=== PATIENT | female | born 1980 | race Caucasian/White ===

== ENCOUNTER → 2017-09-09 20:38 | Outpatient (CLI) | payer SELFPAY ==
[2017-09-15 11:27] LABS: HPV APTIMA, High Risk Negative (Negative)
== END ==
PROVIDERS: Visit Provider Nurse Practitioner Women's Health
DX: Z12.4 Encounter for screening for malignant neoplasm of cervix (principal)
CPT/HCPCS: 88175; G0145

== ENCOUNTER → 2018-11-03 08:32 | Outpatient (CLI) | payer BC, SELFPAY ==
[2018-10-26 13:55] VITALS: BMI 32.7
[2018-11-03 10:28] LABS: ALB/GLOB Ratio 1.1 RATIO (0.9-2.4); AST(SGOT) 14 U/L (15-37); Alanine Aminotransfer ALT/SGPT 20 U/L (13-56); Albumin, Serum 3.9 g/dL (3.2-5.0); Alkaline Phosphatase 57 U/L (45-117); Anion Gap 8 (5-15); BUN 13 mg/dL (7-18); BUN/Creat Ratio 17.5 RATIO (10-20); Calcium,Total 8.5 mg/dL (8.5-10.1); Chloride 108 mmol/L (98-107); Cholesterol 179 mg/dL (200); Creatinine, Serum 0.74 mg/dL (0.55-1.02); EST Glomerular Filtration Rate 93 mL/min (>60); Est Glom Filt Rate - Afr Amer 112 mL/min (>60); Globulin 3.6 g/dL (2.2-4.2); Glucose 94 mg/dL (74-106); High Density Lipoprotein 42 mg/dL; Potassium 3.8 mmol/L (3.5-5.1); Protein, Total 7.5 g/dL (6.4-8.2); Sodium Level 141 mmol/L (136-145); Thyroid Stim Hormone (TSH) 3.24 uIU/mL (0.358-3.74); Triglycerides 88 mg/dL; Very Low Density Lipoprotein 18 mg/dL (5-40)
== END ==
PROVIDERS: Family Provider Family Medicine; Referring Provider Nurse Practitioner Women's Health; Visit Provider Nurse Practitioner Women's Health
DX: Z00.00 Encounter for general adult medical examination without abnormal findings (principal); Z13.220 Encounter for screening for lipoid disorders; R79.89 Other specified abnormal findings of blood chemistry
CPT/HCPCS: 36415; 80053; 80061; 84443

== ENCOUNTER → 2020-01-01 15:39 | Outpatient (CLI) | payer BC, SELFPAY ==
[2019-11-21 14:08] VITALS: BMI 32.7
--- NOTE | 2020-01-01 15:49 | BI_ITS ---
MAMMOGRAPHY - BILATERAL SCREENING REASON FOR EXAM: Female, 39 years old. Routine annual screening examination. PERTINENT HISTORY: Aunts with breast cancer. TECHNIQUE: Digital bilateral breast madison (3D mammographic acquisition) in the CC and MLO projections. 2-D mediolateral oblique (MLO) and craniocaudad (CC) views of both breasts were obtained. CAD: Full Field Digital Mammography with Computer Added Detection was performed. COMPARISON: None. Baseline examination. FINDINGS: Breast Composition: The breasts are heterogeneously dense, which may obscure small masses. There are no dominant masses or suspicious calcifications. No other significant abnormalities are identified. BI/SCREEN MAMM (CAD) W/MADISON BILAT IMPRESSION: Negative screening mammogram. Yearly followup mammogram recommended. (A) ASSESSMENT CATEGORY: BIRADS Category 1: Negative. A letter regarding these results will be sent to the patient by the facility within 30 days. Approximately 10% of breast cancers are not detected by mammography. A normal mammogram should not delay biopsy of a clinically suspicious abnormality. [id number] Electronically Signed: Ricardo Huertas, at 9:04 EDT , Service support ,
== END ==
PROVIDERS: Referring Provider Nurse Practitioner Women's Health; Visit Provider Nurse Practitioner Women's Health
DX: Z12.31 Encounter for screening mammogram for malignant neoplasm of breast (principal)
CPT/HCPCS: 77063; 77067

== ENCOUNTER → 2020-06-18 11:50 | Outpatient (CLI) | payer BC, SELFPAY ==
[2020-06-10 11:18] VITALS: BMI 33.8
[2020-06-18 15:26] LABS: Absolute Lymphocyte Count 2.04 X10^3/uL (0.83-4.51); Absolute Neutrophil Count 2.6 X10^3/uL (2.0-7.7); Basophil# 0.05 X10^3/uL; Eosinophil# 0.17 X10^3/uL; Eosinophils% 3.2 % (0-5); Hematocrit 42.1 % (37-47); Lymphocyte # 2.04 X10^3/ul (4.0); Lymphocyte % 38.9 % (19-41); Mean Corp Hgb Conc 33.3 g/dL (32-36); Mean Corpuscular Volume 93.1 fL (81-99); Mean Platelet Vol. 11.5 fl (6.2-12.0); Monocyte# 0.38 X10^3/uL; Monocyte% 7.2 % (0-10); NRBC Flagged by Analyzer 0 % (0-5); Neutrophil % 49.5 % (47-70); Platelet Count 229 K/mm3 (150-450); RBC Distribution Width CV 11.8 % (11.6-14.6); RBC Distribution Width SD 39.6 fl (35.1-43.9); Red Blood Count 4.52 M/mm3 (4.2-5.4); White Blood Count 5.3 K/mm3 (4.4-11.0)
== END ==
PROVIDERS: PCP Family Medicine; Referring Provider Obstetrics & Gynecology; Visit Provider Obstetrics & Gynecology
DX: Z13.29 Encounter for screening for other suspected endocrine disorder (principal); N92.0 Excessive and frequent menstruation with regular cycle
CPT/HCPCS: 36415; 84443; 85025

== ENCOUNTER → 2020-06-19 07:30 | Outpatient (CLI) | payer BC, SELFPAY ==
[2020-06-10 11:18] VITALS: BMI 33.8
--- NOTE | 2020-06-19 07:32 | US_ITS ---
STUDY: ULTRASOUND OF THE FEMALE PELVIS - COMPLETE REASON FOR EXAM: Female, 39 years old. Menorrhagia -- LMP 06/06/20 LMP: 06/06/2020 TECHNIQUE: Transabdominal and Transvaginal TECHNICAL QUALITY: Adequate. COMPARISON: None. FINDINGS: The uterus is anteverted and is in a midline position. The uterus measures 8 cm x 6.4 cm x 4.9 cm. Normal uterine cervix. The endometrium measures 11 mm in thickness, and is fluid distended. There is no demonstrated endometrial mass. There is no demonstrated myometrial mass. I.U.D. - The patient does not have an I.U.D. The right ovary is visualized. The right ovary measures 2.6 cm x 2.2 cm x 2 cm. There is no right ovarian cyst or ovarian mass. There is no visualized right adnexal mass or complex lesion. There is normal arterial and normal venous vascularity. The left ovary is visualized. The left ovary measures 3.3 cm x 3.1 cm x 2.4 cm. There is a 1.4 cm x 1.3 cm x 1.5 cm follicle in the left ovary. There is no visualized left adnexal mass or complex lesion. There is normal arterial and normal venous vascularity. There is no fluid in the cul-de-sac. The pre void volume of the bladder was 41 ml. Polycystic ovary disease: No. US/Transvaginal Non- IMPRESSION: Dominant follicle in the left ovary. Electronically Signed: Ricardo Huertas, at 12:49 EST , Service support ,
--- NOTE | 2020-06-19 07:32 | US_ITS ---
STUDY: ULTRASOUND OF THE FEMALE PELVIS - COMPLETE REASON FOR EXAM: Female, 39 years old. Menorrhagia -- LMP 06/06/20 LMP: 06/06/2020 TECHNIQUE: Transabdominal and Transvaginal TECHNICAL QUALITY: Adequate. COMPARISON: None. FINDINGS: The uterus is anteverted and is in a midline position. The uterus measures 8 cm x 6.4 cm x 4.9 cm. Normal uterine cervix. The endometrium measures 11 mm in thickness, and is fluid distended. There is no demonstrated endometrial mass. There is no demonstrated myometrial mass. I.U.D. - The patient does not have an I.U.D. The right ovary is visualized. The right ovary measures 2.6 cm x 2.2 cm x 2 cm. There is no right ovarian cyst or ovarian mass. There is no visualized right adnexal mass or complex lesion. There is normal arterial and normal venous vascularity. The left ovary is visualized. The left ovary measures 3.3 cm x 3.1 cm x 2.4 cm. There is a 1.4 cm x 1.3 cm x 1.5 cm follicle in the left ovary. There is no visualized left adnexal mass or complex lesion. There is normal arterial and normal venous vascularity. There is no fluid in the cul-de-sac. The pre void volume of the bladder was 41 ml. Polycystic ovary disease: No. US/Pelvic (Non ) IMPRESSION: Dominant follicle in the left ovary. Electronically Signed: Ricardo Huertas, at 12:49 EST , Service support ,
== END ==
PROVIDERS: PCP Family Medicine; Referring Provider Obstetrics & Gynecology; Visit Provider Obstetrics & Gynecology
DX: N92.0 Excessive and frequent menstruation with regular cycle (principal)
CPT/HCPCS: 76830; 76856

== ENCOUNTER → 2020-06-19 17:29 | Outpatient (CLI) | payer BC, SELFPAY ==
[2020-06-10 11:18] VITALS: BMI 33.8
== END ==
PROVIDERS: PCP Family Medicine; Referring Provider Family Medicine; Visit Provider Family Medicine
DX: Z20.828 Contact with and (suspected) exposure to other viral communicable diseases (principal)
CPT/HCPCS: 87635; C9803; U0003

== ENCOUNTER → 2020-11-27 | Outpatient (CLI) | payer BC, SELFPAY ==
[2020-11-27 13:49] VITALS: BMI 32.5
[2020-12-02 07:06] LABS: Chlamydia By Nucleic Acid AMP Negative (Negative)
[2020-12-02 07:16] LABS: Gonococcus By Nucleic Acid AMP Negative (Negative)
== END | disposition home or self-care (01) ==
LOC: LABSPEC 16:57
PROVIDERS: PCP Family Medicine; Visit Provider Obstetrics & Gynecology
DX: Z20.2 Contact with and (suspected) exposure to infections with a predominantly sexual mode of transmission (principal)
CPT/HCPCS: 87491; 87591

== ENCOUNTER → 2020-11-28 12:42 | Outpatient (CLI) | payer BC, SELFPAY ==
[2020-11-27 13:49] VITALS: BMI 32.5
[2020-11-28 16:26] LABS: HIV - WCH Non-Reactive (Nonreactive); Hepatitis B Surface Antigen Non-Reactive (Nonreactive); Hepatitis C Antibody Non-Reactive (Nonreactive); Syphilis Antibodies Non-reactive
== END ==
PROVIDERS: PCP Family Medicine; Visit Provider Obstetrics & Gynecology
DX: Z20.2 Contact with and (suspected) exposure to infections with a predominantly sexual mode of transmission (principal)
CPT/HCPCS: 36415; 86703; 86780; 86803; 87340

== ENCOUNTER → 2020-12-27 11:02 | Outpatient (CLI) | payer SELFPAY ==
[2020-11-27 13:49] VITALS: BMI 32.5
--- NOTE | 2020-12-27 11:13 | VDLE_ITS ---
Reason For Study: Pain Rt leg RIGHT GSV is normal. CFV is compressible, spontaneous, phasic, competent and demonstrates normal augmentation. FV is compressible, spontaneous, phasic, competent and demonstrates normal augmentation. POP V is compressible, spontaneous, phasic, competent and demonstrates normal augmentation. T/P Trunk is compressible. PTV is compressible. RT PerV is compressible. Procedure This is a venous duplex using B-mode, color flow and spectral Doppler. Exam performed in department. A preliminary report was called and/or faxed to [facility]. VL/Venous Duplex US, Unilateral Interpretation Summary Deep veins of the right lower extremity are patent and compressible segmentally . There is no evidence of right lower extremity deep vein thrombosis. Valvular competence robert ears intact within the proximal deep venous system on the right . The right great saphenous vein a ppears patent and compressible segmentally. Ordering Physician: Andrew Graff Referring Physician: Andrew Graff Performed By: Lilli Campbell RVT and Student
== END ==
PROVIDERS: PCP Family Medicine; Referring Provider Family Medicine; Visit Provider Family Medicine
DX: M79.604 Pain in right leg (principal)
CPT/HCPCS: 93971

== ENCOUNTER 2021-01-14 12:30 | Outpatient (RCR) | payer SELFPAY ==
[2020-11-27 13:49] VITALS: BMI 32.5
--- NOTE | 2021-01-08 15:01 | HP.PTEVAL_ITS ---
Patient's Visit Information ELKIN WILKERSON is a 40 year old F referred to Physical Therapy by Dr. Andrew Graff MD with a diagnosis of PAIN IN RIGHT LEG. Date of Evaluation: 01/08/21 Physical Therapist: Marimar Hummel PT, Cert MDT - Visit Plan Frequency: 2-3x /Week Duration: 4-6 Weeks Plan: AQUATIC THERAPY FOR PAIN RELIEF, POSTURE CORRECTION/STRENGTHENING, INSTRUCTION IN APPROPRIATE BODY MECHANICS AND ACTIVITY MODIFICATIONS. DLS STARTING WITH A NEUTRAL SPINE PROGRESSING ROM TOLERATED. KARI LE ROM, STRETCHING AND STRENGTHENING. HEP INSTRUCTION. 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 Disability: NO. Present symptoms: RIGHT LOW BACK PAIN. RIGHT BUTTOCK, RIGHT THIGH, RIGHT LEG AND INTO THE HEEL. PATIENT DENIES RIGHT LE NUMBNESS AND TINGLING. RIGHT HIP CATCHES. Present since: December. Pain Scale: WORST 8/10, LEAST 3/10. Currently: 3/10. Commenced as a result of: STARTED THE DAY THAT RETURNED FROM A 12 HOUR CAR RIDE HOME FROM [place]. PATIENT WAS PASSENGER. SOME PAIN DURING RIDE HOME BUT NOT BEFORE. Symptoms at onset: RIGHT HIP. Worse: EVERYTHING, MASSAGE, STRETCHING, GETTING DRESSED, BENDING, TWISTING, WORK, HOUSEWORK, LIFTING. Better: IBUPROFEN. Disturbed sleep: YES. Previous history/Previous treatment: PATIENT REPORTS GETTING A MASSAGE ABOUT 2 WEEKS BEFORE VACATION FOR MILD RIGHT LOW BACK/HIP PAIN THAT HAD BEEN GOING ON FOR ABOUT A MONTH AND WENT AWAY AFTER THE MASSAGE. FINE ON VACATION. HISTORY OF ABOUT 5 YEARS OF EPISODIC LOW BACK PAIN AND RIGHT HIP PAIN BUT NEVER THIS SEVERE. NO PRIOR HX OF PAIN DOWN EITHER LEG. TREATED WITH MASSAGE ONLY. NO BACK SURGERY. NO HIP SURGERY. NO BACK OR HIP INJECTIONS. NO BACK OR HIP PHYSICAL THERAPY. NO CHIROPRACTOR. PATIENT REPORTS SHE THINKS LEANING TO THE RIGHT CLEANING TEETH MIGHT HAVE SOMETHING TO DO WITH THIS PAIN DEVELOPING. Treatment this episode: PT CONSULT. Coughing/sneezing/straining: POSITIVE. Gait: ITS A STRUGGLE. PATIENT REPORTS FEELING PULLING IN RIGHT HIP AND TIGHTNESS BEHIND RIGHT KNEE NOT ALLOW IT TO STRAIGHTEN OUT WHEN SHE WALKS. NO FALLS. TIME AND DISTANCE LIMITED DUE TO PAIN. Difficulty initiating urinatin: NO. Accidents: NO. Unexplained weight loss: NO. Imaging: PATIENT DENIES HAVING LOW BACK OR RIGHT LE X-RAYS. PMH: UNREMARKABLE. Recent major surgery: NO. PLOF - UNLIMITED. OTHER: RIGHT LE US - NEGATIVE. - Objective Sitting/Standing Posture: POOR. SITTING ON LEFT HIP. Lordosis: NORMAL. Lateral shift: NO. Relevant shift: N/A. Active Correction of posture: WORSE. Other Observations: THIS PATIENT AMBULATES INTO PT WITH A SLOW ANTALGIC GAIT PATTERN LIMPING ON THE R LE AND EXTERNALLY ROTATING RIGHT LE. Motor deficit: KARI LE STRENGTH 5/5 WITH MMT'ING EXCEPT HIPS: R 4-/5, LEFT 4/5. Sensory deficit: DECREASED RIGHT LATERAL THIGH AND LEG LIGHT TOUCH SENSATION COMPARED TO LEFT. ROM deficit: TIGHT KARI HIP FLEXORS, EXTERNAL ROTATORS, HS'S AND GASTROC SOLEUS COMPLEX'S. Reflexes: 2/3 KARI LE'S. Dural Signs: POSITIVE R LE. NEGATIVE LLE. Lumbar mvmt loss: flex - AYALA. ext - AYALA. R SG - MOD. L SG - MOD. PATIENT C/O INCREASED RIGHT BUTTOCK PAIN WITH LUMBAR ROM TESTING ALL PLANES. Core strength: POOR. Palpation: TENDERNESS WITH PALPATION OF THE RIGHT BUTTOCK AREA. TREATMENT: NEUROMUSCULAR REEDUCATION - RETRAINING OF MVMT AND POSTURE FOR SITTING, LYING AND STANDING ACTIVITIES. - Goals Goal 1:: DECREASE C/O RIGHT LE PAIN Goal Time Frame: 4-6 Weeks Goal 2:: IMRPOVE PERSONAL CARE, LIFTING, WALKING, SITTING, STANDING, SLEEP, SOCIAL LIFE, TRAVEL AND WORK/HOMEMAKING. Goal Time Frame: 4-6 Weeks Goal 3:: INSTRUCT IN PROPHYLAXIS Goal Time Frame: 4-6 Weeks - Anticipated Interventions Patient/Client Instruction: Educate patient on: Condition, Plan of Care, Risk Factors For the Purpose of:: To improve self management Therapeutic Exercise to Include: Strength training, Body mechanics, Postural training, Flexibilty training, Gait and locomotor training, Neuromotor development, In an aquatic setting, Dynamic Lumbar Stabilization For the Purpose of:: To decrease pain, To improve muscle performance and motor function, To increase tolerance to activity/condition/position, To improve ability of physical actions for home/community/work/leisure, To improve gait and locomotor functions TENS: Yes IF ES: Yes Cryotherapy (ice pack, ice massage): Yes Thermo therapy (hot pack): Yes Ultrasound (thermal/non thermal): Yes For the Purpose of:: To decrease pain, To decrease swelling/inflammation, To improve nutrient delivery to tissue Thank you for the opportunity to evaluate your patient. For Medicare and Medicare HMO plans, please review the plan of care and approve it. It will need to be FAXED BACK to us at [phone] for Medicare purposes. For Medicare only, by signing this I certify the plan of care. Please let me know if there are questions or concerns regarding this plan of care. Physician Signature: Date:
--- NOTE | 2021-05-13 13:18 | HP.PT.NRP ---
ELKIN WILKERSON was seen in my office for initial evaluation on 01/08/21. The following Plan of Care was established for this patient: Initial Frequency: 2-3x /Week Initial Duration: 4-6 Weeks Patient/Client Instruction: Educate patient on: Condition, Plan of Care, Risk Factors For the Purpose of:: To improve self management Therapeutic Exercise to Include: Strength training, Body mechanics, Postural training, Flexibilty training, Gait and locomotor training, Neuromotor development, In an aquatic setting, Dynamic Lumbar Stabilization For the Purpose of:: To decrease pain, To improve muscle performance and motor function, To increase tolerance to activity/condition/position, To improve ability of physical actions for home/community/work/leisure, To improve gait and locomotor functions TENS: Yes IF ES: Yes Cryotherapy (ice pack, ice massage): Yes Thermo therapy (hot pack): Yes Ultrasound (thermal/non thermal): Yes For the Purpose of:: To decrease pain, To decrease swelling/inflammation, To improve nutrient delivery to tissue This patient was last seen in our office 01/14/21. Pertinent comments regarding their Physical therapy will appear below: This patient has not returned to Physical Therapy and is appropriate to return to MD for further follow-up as needed. At this point I will be discontinuing this patient from physical therapy. I would be happy to see this patient again in the future if found appropriate by the physician. Thank you! Marimar Hummel, PT, Cert MDT Balance/Gait/Functional tests - Balance/Special Test Scores Oswestry Low Back Score: 20
== END 2021-01-14 19:00 | disposition home or self-care (01) ==
LOC: PT 12:30
PROVIDERS: PCP Family Medicine; Referring Provider Family Medicine; Visit Provider Family Medicine
DX: M79.604 Pain in right leg (principal)
CPT/HCPCS: 97014; 97035; 97112; 97162; 97530; G0283

== ENCOUNTER 2021-08-18 13:25 | Emergency (ER) | payer OTHER, SELFPAY ==
[2021-08-18 13:26] VITALS: BP 164/112; PULSE 99; RESP 18; TEMP 36.6; O2SAT 100; BMI 32.9
--- NOTE | 2021-08-18 14:42 | EKG12_ITS ---
Test Reason : JAW/NECK PAIN Blood Pressure : / mmHG Vent. Rate : 076 BPM Atrial Rate : 076 BPM P-R Int : 128 ms QRS Dur : 080 ms QT Int : 372 ms P-R-T Axes : 039 001 004 degrees QTc Int : 418 ms Normal sinus rhythm Normal ECG Confirmed by TATIANA EDUARDO, CATHY ([id number]), non linear editor SIMA FARRIS ([id number]) on 08/20/2021 11:45:15 AM Referred By: ANIYA/SHI Confirmed By:CATHY SIMPSON MD
[2021-08-18 15:06] LABS: Absolute Lymphocyte Count 2.13 X10^3/uL (0.83-4.51); Absolute Neutrophil Count 4.1 X10^3/uL (2.0-7.7); Basophil# 0.06 X10^3/uL; Basophil% 0.8 % (0-1); Eosinophil# 0.35 X10^3/uL; Eosinophils% 4.9 % (0-5); Hemoglobin 15.4 g/dL (12.0-15.0); Lymphocyte # 2.13 X10^3/ul (0.83-4.51); Mean Corpuscular Hgb 32.2 pg (27.0-32.0); Mean Corpuscular Volume 91.9 fL (81-99); Mean Platelet Vol. 9.8 fl (6.2-12.0); Monocyte# 0.41 X10^3/uL; Monocyte% 5.8 % (0-10); NRBC Flagged by Analyzer 0 % (0-5); Neutrophil # 4.12 X10^3/uL (2.7-7.7); Neutrophil % 58.2 % (47-70); Platelet Count 298 K/mm3 (150-450); RBC Distribution Width CV 11.9 % (11.6-14.6); RBC Distribution Width SD 40.6 fl (35.1-43.9); Red Blood Count 4.79 M/mm3 (4.2-5.4); White Blood Count 7.1 K/mm3 (4.4-11.0)
[2021-08-18 15:25] VITALS: BP 115/88; PULSE 79; RESP 18; TEMP 37.1; O2SAT 98
[2021-08-18 15:37] LABS: Anion Gap 9 (5-15); BUN 12 mg/dL (7-18); BUN/Creat Ratio 17.7 RATIO (10-20); Calcium,Total 9.4 mg/dL (8.5-10.1); Chloride 106 mmol/L (98-107); Creatinine, Serum 0.68 mg/dL (0.55-1.02); EST Glomerular Filtration Rate 101 mL/min (>60); Est Glom Filt Rate - Afr Amer 122 mL/min (>60); Estimated Creatinine Clearance 86.11 ml/min; Glucose 93 mg/dL (74-106); Potassium 3.4 mmol/L (3.5-5.1); Sodium Level 138 mmol/L (136-145); Troponin-I HS 4 pg/mL (3.0-54.0)
--- NOTE | 2021-08-18 15:50 | RAD_ITS ---
STUDY: X-RAY CHEST REASON FOR EXAM: Female, 40 years old. Chest pain TECHNIQUE: Single AP portable view of the chest. COMPARISON: None. FINDINGS: The lungs are clear and expanded. There is no demonstrated pleural abnormality. Normal size heart. Normal mediastinum and viktoriya. Normal visualized pulmonary arteries. Normal visualized aortic arch and descending thoracic aorta. Normal visualized thoracic spine. Normal visualized ribs, clavicles, and shoulders. There is no demonstrated abnormality of the visualized soft tissue structures of the upper abdomen. RAD/Chest 1 View (Portable) IMPRESSION: Normal x-ray examination of the chest. Electronically Signed: Ricardo Huertas MD at 15:50 EST ,
--- NOTE | 2021-08-18 16:07 | EX.ED.DYSGE1 ---
HPI History of Present Illness Chief Complaint: Other, Pain/Inj Detail of Chief Complaint: Left neck pressure Informant: patient Onset/Context/Timing Onset: Today Current Severity: Gone Maximum Severity: Mild Narrative Narrative: Patient presents secondary to a odd feeling in her left neck and in her left arm. She describes it as a tingling-like sensation. She also had some pressure and slight tingling on her left face. Patient was at work when she noted the symptoms this morning and checked her blood pressure. It was 143/103 which is high for her. She does note that at home last week she felt her heart was racing and her pulse ox read her heart rate at 140. This improved after she took a half dose of Xanax. On arrival to the emergency room today blood pressure is 164/112. Patient is not on blood pressure medication. [facility] Medical History Acid reflux Anxiety Home Medications ranitidine HCl 150 mg tablet 150 mg PO QHS 09/09/17 [History Last Taken Unknown] Allergy/AdvReac Type Severity Reaction Status Date / Time Sulfa (Sulfonamide Allergy Mild Other Verified 08/18/21 13:28 Antibiotics) Family History Father Heart disease Surgical History Cholecystectomy planned History of tonsillectomy Social History Smoking Status: Former smoker alcohol intake: current details: social substance use type: does not use caffeine: Yes what type of physical activity do you participate in: none seatbelt use: always do you feel safe at home: Yes additional social history: - unris pendleton patient works at [employer] [facility] ED Constitutional Constitutional ED: Denies chills or fever(s) Eyes Eyes: Denies change in vision ENT ENT ED: Denies sore throat Cardiovascular Cardiovascular: Denies chest pain Respiratory/Chest Respiratory/Chest: Denies cough or dyspnea Gastrointestinal Gastrointestinal: Denies abdominal pain, nausea or vomiting Genitourinary Genitourinary ED: Denies dysuria Musculoskeletal Musculoskeletal: Reports neck pain; Denies back pain Integumentary Denies rash Neurologic Neurologic: Reports paresthesias; Denies headache(s) or weakness Allergic/Immunologic Allergic/Immunologic ED: Denies urticaria EXAM Physical Exam Const Vital Signs: 08/18/21 13:26 Temperature 97.8 F Temperature Source Temporal Pulse Rate 99 Respiratory Rate 18 Blood Pressure 164/112 H Blood Pressure Mean 129 Pulse Ox 100 Oxygen Delivery Method Room Air Positive well nourished and well developed General Appearance ED: well developed HEENT Reports moist mucous membranes Eyes PERRL and EOMs intact bilaterally Neck supple Neck Narrative: Mild tenderness in the left cervical paraspinal muscles. Chest Wall inspection of chest normal and palpation of chest normal Resp normal respiratory effort and clear to auscultation bilaterally Cardio regular rate and regular rhythm GI non-tender Palpation: soft Extremity normal to inspection Neuro oriented x3 and no sensory deficits noted Sensorium / Orientation: alert Motor Exam: strength 5/5 throughout Psych mental status grossly normal Skin no rashes or lesions noted MDM MDM MDM Narrative Medical decision making narrative: Work-up initiated in triage. EKG, chest x-ray, lab work obtained. Lab Data Attestation: I reviewed the patient's lab results. Labs: Laboratory Results - last 24 hr 08/18/21 08/18/21 14:50 14:50 WBC 7.1 RBC 4.79 Hgb 15.4 H Hct 44.0 MCV 91.9 MCH 32.2 H MCHC 35.0 RDW Std Deviation 40.6 RDW Coeff of Jhonny 11.9 Plt Count 298 MPV 9.8 Immature Gran % (Auto) 0.300 Neut % (Auto) 58.2 Lymph % (Auto) 30.0 Darke % (Auto) 5.8 Eos % (Auto) 4.9 Baso % (Auto) 0.8 Absolute Neuts (auto) 4.1 Absolute Lymphs (auto) 2.13 Nucleated RBC % 0 Sodium 138 Potassium 3.4 L Chloride 106 Carbon Dioxide 23.0 Anion Gap 9 BUN 12 Creatinine 0.68 Estim Creat Clear Calc 86.11 Est GFR (MDRD) Af Amer 122 Est GFR (MDRD) Non-Af 101 BUN/Creatinine Ratio 17.7 Glucose 93 Calcium 9.4 Troponin I High Sens 4 Radiography Chest X-Ray - ED: 1 View, Read by ED Physician, Normal, Heart, Lungs and Mediastinum EKG Initial EKG: Attestation: I personally reviewed and interpreted this EKG as follows: Interpretation: Sinus Rhythm (Sinus at 76 with no acute ischemia.) Treatment and Re-Evaluation Comments:: At the time of my exam patient resting comfortably with no abnormal sensation in her neck or arm. Blood pressure this time is 134/77. Test results reviewed with her. Potassium is slightly low at 3.4, otherwise values are normal. Troponin is normal at 4 with 6 hours of symptoms prior to labs being drawn. At this time I do not feel patient needs a repeat troponin drawn. She will check her blood pressure at work regularly and keep a journal to follow-up with her primary care physician. Return instructions provided. Discharge Plan Triage Chief Complaint: Other, Pain/Inj ED Provider: Ama Schulz Dx/Rx/DC Orders Clinical Impression: Atypical chest pain, Hypokalemia Instructions: ED Chest Pain, Noncardiac, ED Hypertension, To Be Confirmed Prescriptions: No Action ranitidine HCl [Zantac] 150 mg tablet 150 mg PO QHS RF: 0 Primary Care Provider: Andrew Graff Referrals: Andrew Graff MD [Primary Care Provider] - 1-2 Weeks Activity Restrictions/Additional Instructions: As discussed, please keep a journal of your blood pressure readings. Take this to your next appointment with your doctor to review. Please return to the ER for any worsening symptoms or concerns. Disposition Disposition: Home, Self Care
[2021-08-18 16:21] VITALS: BP 118/76; PULSE 69; RESP 16; TEMP 37.2; O2SAT 98
[2021-08-18] MEDS: Potassium Chloride Oral Tablet 20 MEQ 40 MEQ PO (16:28)
== END 2021-08-18 16:28 | disposition home or self-care (01) ==
PROVIDERS: Emergency Provider Emergency Medicine; PCP Family Medicine; Visit Provider Emergency Medicine
DX: R07.89 Other chest pain (principal); E87.6 Hypokalemia; K21.9 Gastro-esophageal reflux disease without esophagitis; F41.9 Anxiety disorder, unspecified; Z79.899 Other long term (current) drug therapy; Z87.891 Personal history of nicotine dependence
CPT/HCPCS: 71045; 80048; 84484; 85025; 93005; 99283; A4216

== ENCOUNTER 2021-09-24 08:42 | Outpatient (CLI) | payer OTHER, SELFPAY ==
[2021-09-24 10:45] LABS: Cholesterol 199 mg/dL (200); Glucose 99 mg/dL (74-106); High Density Lipoprotein 45 mg/dL; Thyroid Stim Hormone (TSH) 3.84 uIU/mL (0.358-3.74); Triglycerides 161 mg/dL; Very Low Density Lipoprotein 32 mg/dL (5-40)
[2021-09-24 11:12] LABS: Vitamin D,25 Hydroxy 26.8 ng/mL
== END 2021-09-24 23:59 | disposition home or self-care (01) ==
LOC: MTLAB 08:43
PROVIDERS: PCP Family Medicine; Referring Provider Nurse Practitioner Women's Health; Visit Provider Nurse Practitioner Women's Health
DX: Z13.1 Encounter for screening for diabetes mellitus (principal); Z13.220 Encounter for screening for lipoid disorders; Z13.29 Encounter for screening for other suspected endocrine disorder; Z13.21 Encounter for screening for nutritional disorder
CPT/HCPCS: 36415; 80061; 82306; 82947; 84443

== ENCOUNTER → 2022-02-20 | Outpatient (CLI) | payer OTHER, SELFPAY ==
--- NOTE | 2022-02-20 11:11 | US_ITS ---
STUDY: ULTRASOUND OF THE FEMALE PELVIS - COMPLETE REASON FOR EXAM: Female, 41 years old. Menorrhagia LMP: 02/09/2022. TECHNIQUE: Transabdominal and Transvaginal TECHNICAL QUALITY: Adequate. COMPARISON: Comparison is made with prior study dated 06/19/2020. FINDINGS: The uterus is anteverted and is in a midline position. The uterus measures 8.3 cm x 5.4 cm x 4.7 cm. There is a Nabothian cyst of the cervix. The endometrium measures 2.6 mm in thickness, and is heterogeneous (striated). There is no demonstrated endometrial mass. There is no demonstrated myometrial mass. I.U.D. - The patient does not have an I.U.D. The right ovary is visualized. The right ovary measures 2.5 cm x 2.9 cm x 1.5 cm. There is no right ovarian cyst or ovarian mass. There is no visualized right adnexal mass or complex lesion. There is normal arterial and normal venous vascularity. The left ovary is visualized. The left ovary measures 3.4 cm x 2.9 cm x 2.2 cm. There is a 2 cm x 1.8 cm x 1.7 cm cyst. There is no visualized left adnexal mass or complex lesion. There is normal arterial and normal venous vascularity. There is no fluid in the cul-de-sac. The pre void volume of the bladder was 607 ml. US/Transvaginal Non- IMPRESSION: 2 cm x 1.8 cm x 1.7 cm left ovarian cyst. Electronically Signed: Ricardo Huertas MD at 13:03 EDT ,
--- NOTE | 2022-02-20 11:11 | US_ITS ---
STUDY: ULTRASOUND OF THE FEMALE PELVIS - COMPLETE REASON FOR EXAM: Female, 41 years old. Menorrhagia LMP: 02/09/2022. TECHNIQUE: Transabdominal and Transvaginal TECHNICAL QUALITY: Adequate. COMPARISON: Comparison is made with prior study dated 06/19/2020. FINDINGS: The uterus is anteverted and is in a midline position. The uterus measures 8.3 cm x 5.4 cm x 4.7 cm. There is a Nabothian cyst of the cervix. The endometrium measures 2.6 mm in thickness, and is heterogeneous (striated). There is no demonstrated endometrial mass. There is no demonstrated myometrial mass. I.U.D. - The patient does not have an I.U.D. The right ovary is visualized. The right ovary measures 2.5 cm x 2.9 cm x 1.5 cm. There is no right ovarian cyst or ovarian mass. There is no visualized right adnexal mass or complex lesion. There is normal arterial and normal venous vascularity. The left ovary is visualized. The left ovary measures 3.4 cm x 2.9 cm x 2.2 cm. There is a 2 cm x 1.8 cm x 1.7 cm cyst. There is no visualized left adnexal mass or complex lesion. There is normal arterial and normal venous vascularity. There is no fluid in the cul-de-sac. The pre void volume of the bladder was 607 ml. US/Pelvic (Non ) IMPRESSION: 2 cm x 1.8 cm x 1.7 cm left ovarian cyst. Electronically Signed: Ricardo Huertas MD at 13:03 EDT ,
--- NOTE | 2022-02-20 11:57 | BI_ITS ---
MAMMOGRAPHY - BILATERAL SCREENING REASON FOR EXAM: Female, 41 years old. Routine annual screening examination. PERTINENT HISTORY: Aunt with breast cancer. TECHNIQUE: Digital bilateral breast madison (3D mammographic acquisition) in the CC and MLO projections. 2-D mediolateral oblique (MLO) and craniocaudad (CC) views of both breasts were obtained. CAD: Full Field Digital Mammography with Computer Added Detection was performed. COMPARISON: Comparison is made with prior study dated 01/01/2020. FINDINGS: Breast Composition: The breasts are heterogeneously dense, which may obscure small masses. There are no dominant masses or suspicious calcifications. No other significant abnormalities are identified. There has been no significant change since the prior study. BI/SCRN MAMM (CAD)W/MADISON BILAT IMPRESSION: Stable bilateral screening mammogram. Yearly follow-up mammogram recommended. (A) ASSESSMENT CATEGORY: BIRADS Category 1: Negative. A letter regarding these results will be sent to the patient by the facility within 30 days. Approximately 10% of breast cancers are not detected by mammography. A normal mammogram should not delay biopsy of a clinically suspicious abnormality. [id number] Electronically Signed: Ricardo Huertas MD at 12:51 EDT ,
== END | disposition home or self-care (01) ==
LOC: US 11:09
PROVIDERS: PCP Family Medicine; Visit Provider Nurse Practitioner Women's Health
DX: N92.0 Excessive and frequent menstruation with regular cycle (principal); N83.202 Unspecified ovarian cyst, left side; Z12.31 Encounter for screening mammogram for malignant neoplasm of breast; Z80.3 Family history of malignant neoplasm of breast
CPT/HCPCS: 76830; 76856; 77063; 77067

== ENCOUNTER → 2022-03-20 | Outpatient (CLI) | payer OTHER, SELFPAY ==
[2022-03-20 18:01] LABS: Anion Gap 9 (5-15); BUN 13 mg/dL (7-18); BUN/Creat Ratio 15.8 RATIO (10-20); Calcium,Total 9.2 mg/dL (8.5-10.1); Chloride 105 mmol/L (98-107); Creatinine, Serum 0.82 mg/dL (0.55-1.02); EST Glomerular Filtration Rate 81 mL/min (>60); Est Glom Filt Rate - Afr Amer 98 mL/min (>60); Glucose 85 mg/dL (74-106); Potassium 3.3 mmol/L (3.5-5.1); Sodium Level 138 mmol/L (136-145); T4 Free Direct 0.97 ng/dL (0.76-1.46); Thyroid Stim Hormone (TSH) 3.61 uIU/mL (0.358-3.74)
== END | disposition home or self-care (01) ==
LOC: MTLAB 15:32
PROVIDERS: PCP Internal Medicine; Referring Provider Internal Medicine; Visit Provider Internal Medicine
DX: E87.6 Hypokalemia (principal); R94.6 Abnormal results of thyroid function studies
CPT/HCPCS: 36415; 80048; 84439; 84443

== ENCOUNTER → 2022-04-09 | Outpatient (CLI) | payer OTHER, SELFPAY ==
--- NOTE | 2022-04-09 12:06 | US_ITS ---
INDICATION: anterior neck swelling EXAMINATION: US Thyroid (eg thyroid, parathyroid, parotid) TECHNIQUE: Del Cid scale and color doppler imaging was performed of the thyroid gland. COMPARISON: None. FINDINGS: RIGHT THYROID LOBE: Measures 4.8 x 1.9 x 2.1 cm. Heterogeneous echotexture with normal vascularity. [No thyroid nodules are present. LEFT THYROID LOBE: Measures 5.4 x 2.4 x 2.2 cm. Heterogeneous echotexture with normal vascularity. [No thyroid nodules are present. ISTHMUS: Measures 3.1 mm. No thyroid nodules are present. US/Thyroid IMPRESSION: Enlarged and heterogeneous thyroid gland without increased vascularity or discrete nodule. This is concerning for diffuse thyroid disease such as Graves disease or De Quervain thyroiditis. Electronically Signed: Vincent Garcia MD at 17:06 EDT ,
== END | disposition home or self-care (01) ==
LOC: US 12:05
PROVIDERS: PCP Internal Medicine; Referring Provider Internal Medicine; Visit Provider Internal Medicine
DX: E04.9 Nontoxic goiter, unspecified (principal)
CPT/HCPCS: 76536

== ENCOUNTER → 2022-04-13 | Outpatient (CLI) | payer OTHER, SELFPAY ==
[2022-04-26 09:18] LABS: Anti-Thyroglobulin AB 1.3 IU/mL (0.0-0.9); Thyroglobulin RIA 107 ng/mL (.); Thyroid Peroxidase AB 165 IU/mL (0-34)
== END | disposition home or self-care (01) ==
PROVIDERS: PCP Internal Medicine; Referring Provider Internal Medicine; Visit Provider Internal Medicine
DX: E87.6 Hypokalemia (principal); E04.9 Nontoxic goiter, unspecified
CPT/HCPCS: 36415; 83735; 84432; 86376; 86800

== ENCOUNTER → 2022-09-07 | Outpatient (CLI) | payer OTHER, SELFPAY ==
[2022-09-07 13:31] LABS: Ferritin 21 ng/mL (8-252); Thyroid Stim Hormone (TSH) 0.65 uIU/mL (0.358-3.74)
[2022-09-07 13:36] LABS: Vitamin B12 358 pg/mL (211-911); Vitamin D,25 Hydroxy 16.4 ng/mL
== END | disposition home or self-care (01) ==
PROVIDERS: PCP Internal Medicine; Referring Provider Internal Medicine Endocrinology, Diabetes & Metabolism; Visit Provider Internal Medicine Endocrinology, Diabetes & Metabolism
DX: E03.8 Other specified hypothyroidism (principal); E06.3 Autoimmune thyroiditis; R20.2 Paresthesia of skin; R25.2 Cramp and spasm; N92.0 Excessive and frequent menstruation with regular cycle; E55.9 Vitamin D deficiency, unspecified
CPT/HCPCS: 36415; 82306; 82607; 82728; 84439; 84443

== ENCOUNTER → 2022-09-21 | Outpatient (CLI) | payer OTHER, SELFPAY ==
[2022-09-21 12:48] LABS: ALB/GLOB Ratio 0.9 RATIO (0.9-2.4); AST(SGOT) 18 U/L (15-37); Alanine Aminotransfer ALT/SGPT 29 U/L (13-56); Albumin, Serum 3.8 g/dL (3.2-5.0); Alkaline Phosphatase 61 U/L (45-117); Anion Gap 8 (5-15); BUN 14 mg/dL (7-18); BUN/Creat Ratio 18.3 RATIO (10-20); Calcium,Total 9.8 mg/dL (8.5-10.1); Chloride 105 mmol/L (98-107); Cholesterol 170 mg/dL (200); Creatinine, Serum 0.77 mg/dL (0.55-1.02); EST Glomerular Filtration Rate 88 mL/min (>60); Est Glom Filt Rate - Afr Amer 106 mL/min (>60); Globulin 4.1 g/dL (2.2-4.2); Glucose 101 mg/dL (74-106); High Density Lipoprotein 42 mg/dL; Potassium 3.8 mmol/L (3.5-5.1); Protein, Total 7.9 g/dL (6.4-8.2); Sodium Level 138 mmol/L (136-145); Triglycerides 121 mg/dL; Very Low Density Lipoprotein 24 mg/dL (5-40)
[2022-10-04 16:07] LABS: Aldosterone, Serum 2.4 ng/dL (0.0-30.0); Renin, Plasma 0.933 ng/mL/hr (0.167-5.380)
[2022-10-06 11:07] LABS: ALDOSTERONE/RENIN RATIO 2.6 (0.0-30.0)
== END | disposition home or self-care (01) ==
LOC: BIMLAB 10:00
PROVIDERS: PCP Internal Medicine; Referring Provider Internal Medicine; Visit Provider Internal Medicine
DX: I10 Essential (primary) hypertension (principal)
CPT/HCPCS: 36415; 80053; 80061; 82088; 84244

== ENCOUNTER → 2022-11-23 | Outpatient (CLI) | payer OTHER, SELFPAY ==
[2022-11-23 10:30] LABS: T4 Free Direct 1.13 ng/dL (0.76-1.46); Thyroid Stim Hormone (TSH) 1.29 uIU/mL (0.358-3.74)
== END | disposition home or self-care (01) ==
LOC: MTLAB 08:15
PROVIDERS: Nurse Practitioner Family; PCP Internal Medicine; Referring Provider Internal Medicine Endocrinology, Diabetes & Metabolism; Visit Provider Internal Medicine Endocrinology, Diabetes & Metabolism
DX: E06.3 Autoimmune thyroiditis (principal); E03.8 Other specified hypothyroidism; I10 Essential (primary) hypertension
CPT/HCPCS: 36415; 84439; 84443

== ENCOUNTER → 2023-01-25 | Outpatient (CLI) | payer OTHER, SELFPAY ==
[2023-01-28 12:08] LABS: HPV APTIMA, High Risk Negative (Negative)
== END | disposition home or self-care (01) ==
PROVIDERS: PCP Internal Medicine; Referring Provider Nurse Practitioner Women's Health; Visit Provider Nurse Practitioner Women's Health
DX: Z12.4 Encounter for screening for malignant neoplasm of cervix (principal)
CPT/HCPCS: 87624; 88175; G0145

== ENCOUNTER → 2023-01-27 | Outpatient (CLI) | payer OTHER, SELFPAY ==
[2023-01-27 13:03] LABS: Vitamin B12 553 pg/mL (211-911); Vitamin D,25 Hydroxy 41.8 ng/mL
[2023-01-27 13:08] LABS: Anion Gap 5 (5-15); BUN 8 mg/dL (7-18); BUN/Creat Ratio 11.1 RATIO (10-20); Calcium,Total 9.3 mg/dL (8.5-10.1); Chloride 107 mmol/L (98-107); Creatinine, Serum 0.72 mg/dL (0.55-1.02); EST Glomerular Filtration Rate 94 mL/min (>60); Est Glom Filt Rate - Afr Amer 114 mL/min (>60); Glucose 95 mg/dL (74-106); Potassium 4.1 mmol/L (3.5-5.1); Sodium Level 138 mmol/L (136-145)
[2023-01-27 13:48] LABS: Ferritin 55 ng/mL (8-252); T4 Free Direct 1.21 ng/dL (0.76-1.46); Thyroid Stim Hormone (TSH) 1.48 uIU/mL (0.358-3.74)
== END | disposition home or self-care (01) ==
LOC: BIMLAB 09:56
PROVIDERS: Internal Medicine Endocrinology, Diabetes & Metabolism; PCP Internal Medicine; Referring Provider Internal Medicine; Visit Provider Internal Medicine
DX: I10 Essential (primary) hypertension (principal); E03.8 Other specified hypothyroidism; E06.3 Autoimmune thyroiditis; E61.1 Iron deficiency; E53.8 Deficiency of other specified B group vitamins; E55.9 Vitamin D deficiency, unspecified
CPT/HCPCS: 36415; 80048; 82306; 82607; 82728; 84439; 84443

== ENCOUNTER → 2023-08-31 | Outpatient (CLI) | payer OTHER, SELFPAY ==
[2023-08-31 19:03] LABS: HIV - WCH Non-Reactive (Nonreactive); Hepatitis B Surface Antibody Reactive; Hepatitis C Antibody Non-Reactive (Nonreactive)
--- OUTSIDE RECORDS SUMMARY | 2023-09-01 00:27 | XMS RPT_ITS | CCD ---
Author Name Unknown Address [address] [place] [address] Organization [facility] Allergies Allergy Classification Reported Allergen(s) Allergy Type Date of Onset Reaction(s) Facility (2 sources) Sulfonamides (Antibiotic); Translations: [SULFA (SULFONAMIDE ANTIBIOTICS)] Propensity to adverse reactions [facility]dis[facility] Problem Classification Problem Date Documented Da te Episodic/Chronic Abdominal pain (1 source) Upper abdominal pain, unspecified; Translations: [Upper abdominal pain, unspecified] Onset: 04-06-2017 Episodic Results Test Name Value Interpretation Reference Range Facil ity Encounters Encounter Date Encounter Type Care Provider Facility Start: 07-03-2017 End: 07-06-2017 Ambulatory [facility] Start: 04-06-2017 End: 04-06-2017 Emergency department patient visit [facility] Summary Purpose Family History No Family History Records FoundNo Family History Records Found Advance Directives No Advanced Directives Records FoundNo Advanced Directives Records Found Additional Source Comments INFORMATION SOURCE (unrecogn ized section and content) DATE CREATED AUTHOR AUTHOR'S ORGANIZ ATION 12/29/2017 [facility] FOR RECORDS PERTAINING TO PATIENTS WHO ARE OR HAVE BEEN ENROLLED IN A CHEMICAL DEPENDENCY/SUBSTANCEABUSE PROGRAM, SOME INFORMATION MAY BE OMITTED. This clinical summary was aggregated from multiple sources. Caution should be exercised in using it in the provision of clinical care. This summary normalizes information from multiple sources, and as a consequence, information in this document may materially change the coding, format and clinical context of patient data. In addition, data may be omitted in some cases. CLINICAL DECISIONS SHOULD BE BASED ON THE PRIMARY CLINICAL RECORDS. [facility]. provides no warranty or guarantee of the accuracy or completeness of information in this document.
== END | disposition home or self-care (01) ==
LOC: MTLAB 16:41
PROVIDERS: PCP Internal Medicine; Referring Provider Student in an Organized Health Care Education/Training Program; Visit Provider Student in an Organized Health Care Education/Training Program
DX: T14.8XXA Other injury of unspecified body region, initial encounter (principal); W46.0XXA Contact with hypodermic needle, initial encounter
CPT/HCPCS: 36415; 86703; 86706; 86803

== ENCOUNTER → 2023-12-06 | Outpatient (CLI) | payer OTHER, SELFPAY ==
[2023-12-06 17:34] LABS: Absolute Lymphocyte Count 2.11 X10^3/uL (0.83-4.51); Absolute Neutrophil Count 3.2 X10^3/uL (2.0-7.7); Basophil# 0.06 X10^3/uL; Eosinophil# 0.21 X10^3/uL; Eosinophils% 3.6 % (0-5); Hematocrit 39.8 % (37-47); Hemoglobin 13.2 g/dL (12.0-15.0); Lymphocyte # 2.11 X10^3/ul (0.83-4.51); Lymphocyte % 35.9 % (19-41); Mean Corp Hgb Conc 33.2 g/dL (32-36); Mean Corpuscular Hgb 31.1 pg (27.0-32.0); Mean Corpuscular Volume 93.6 fL (81-99); Mean Platelet Vol. 10.4 fl (6.2-12.0); Monocyte# 0.34 X10^3/uL; Monocyte% 5.8 % (0-10); NRBC Flagged by Analyzer 0 % (0-5); Neutrophil # 3.15 X10^3/uL (2.7-7.7); Neutrophil % 53.5 % (47-70); Platelet Count 240 K/mm3 (150-450); RBC Distribution Width CV 12.4 % (11.6-14.6); RBC Distribution Width SD 42.5 fl (35.1-43.9); Red Blood Count 4.25 M/mm3 (4.2-5.4); White Blood Count 5.9 K/mm3 (4.4-11.0)
[2023-12-06 18:32] LABS: ALB/GLOB Ratio 1.1 RATIO (0.9-2.4); AST(SGOT) 13 U/L (15-37); Alanine Aminotransfer ALT/SGPT 22 U/L (13-56); Albumin, Serum 3.5 g/dL (3.2-5.0); Alkaline Phosphatase 54 U/L (45-117); Anion Gap 8 (5-15); BUN 8 mg/dL (7-18); BUN/Creat Ratio 10.4 RATIO (10-20); Calcium,Total 8.5 mg/dL (8.5-10.1); Chloride 109 mmol/L (98-107); Cholesterol 161 mg/dL (200); Creatinine, Serum 0.77 mg/dL (0.55-1.02); EST Glomerular Filtration Rate 87 mL/min (>60); Est Glom Filt Rate - Afr Amer 105 mL/min (>60); Globulin 3.3 g/dL (2.2-4.2); Glucose 106 mg/dL (74-106); High Density Lipoprotein 42 mg/dL; Potassium 3.4 mmol/L (3.5-5.1); Protein, Total 6.8 g/dL (6.4-8.2); Sodium Level 139 mmol/L (136-145); Thyroid Stim Hormone (TSH) 2.62 uIU/mL (0.358-3.74); Triglycerides 132 mg/dL; Very Low Density Lipoprotein 26 mg/dL (5-40)
== END | disposition home or self-care (01) ==
PROVIDERS: PCP Internal Medicine; Referring Provider Internal Medicine; Visit Provider Internal Medicine
DX: I10 Essential (primary) hypertension (principal)
CPT/HCPCS: 36415; 80053; 80061; 84443; 85025

== ENCOUNTER → 2024-06-19 | Outpatient (CLI) | payer OTHER, SELFPAY ==
[2024-06-19 13:39] LABS: Anion Gap 9 (5-15); BUN 9 mg/dL (7-18); BUN/Creat Ratio 11.8 RATIO (10-20); Calcium,Total 8.9 mg/dL (8.5-10.1); Chloride 111 mmol/L (98-107); Creatinine, Serum 0.76 mg/dL (0.55-1.02); EST Glomerular Filtration Rate 87 mL/min (>60); Est Glom Filt Rate - Afr Amer 106 mL/min (>60); Glucose 92 mg/dL (74-106); Sodium Level 137 mmol/L (136-145)
[2024-06-19 18:36] LABS: Vitamin D,25 Hydroxy 35.3 ng/mL
== END | disposition home or self-care (01) ==
PROVIDERS: PCP Internal Medicine; Referring Provider Internal Medicine; Visit Provider Internal Medicine
DX: E55.9 Vitamin D deficiency, unspecified (principal)
CPT/HCPCS: 36415; 80048; 82306

== ENCOUNTER 2024-08-23 07:58 | Outpatient (RCR) | payer OTHER, SELFPAY | END 2024-09-01 23:59 | LOC: NS 07:58 | PROVIDERS: PCP Internal Medicine; Referring Provider Internal Medicine; Visit Provider Internal Medicine | DX: Z71.3 Dietary counseling and surveillance (principal); E66.9 Obesity, unspecified | CPT/HCPCS: 97802 ==

== ENCOUNTER 2024-10-05 09:22 | Outpatient (RCR) | payer OTHER, SELFPAY | END 2024-11-01 23:59 | LOC: NS 09:22 | PROVIDERS: PCP Internal Medicine; Referring Provider Internal Medicine; Visit Provider Internal Medicine | DX: Z71.3 Dietary counseling and surveillance (principal); E66.9 Obesity, unspecified | CPT/HCPCS: 97803 ==

== ENCOUNTER 2024-11-23 11:30 | Outpatient (RCR) | payer OTHER, SELFPAY | END 2024-12-02 23:59 | LOC: NS 11:30 | PROVIDERS: PCP Internal Medicine; Referring Provider Internal Medicine; Visit Provider Internal Medicine | DX: Z71.3 Dietary counseling and surveillance (principal); E66.9 Obesity, unspecified; Z68.32 Body mass index [BMI] 32.0-32.9, adult | CPT/HCPCS: 97803 ==

== ENCOUNTER → 2024-11-23 | Outpatient (CLI) | payer OTHER, SELFPAY ==
--- NOTE | 2024-11-23 11:00 | BI_ITS ---
EXAM: SCRN MAMM (CAD)W/MADISON BILAT DATE: 11/23/2024 CLINICAL HISTORY: F, Age 44 y/o , SCREEN FOR BREAST CANCER No family history. BREAST CANCER RISK ASSESSMENT: Not assessed. TECHNIQUE: Bilateral screening digital breast tomosynthesis with 2D and 3D images. Computer aided detection. COMPARISON: Prior exam(s) dated February 20, 2022.. FINDINGS: TISSUE DENSITY: The breast tissue is heterogenously dense, which may obscure small masses. Bilateral Breast Mammographic Findings: No significant masses, calcifications or other abnormalities are identified. No suspicious masses, areas of developing architectural distortion, or suspicious calcifications. There has been no significant interval change. BI/SCRN MAMM (CAD)W/MADISON BILAT IMPRESSION: OVERALL FINAL ASSESSMENT: BIRADS 1 NEGATIVE RECOMMENDATION: Routine annual follow-up in 1 Year A letter with findings and recommendations will be mailed to the patient. Reading Location: [place] [id number]
== END | disposition home or self-care (01) ==
LOC: OPBI 10:54
PROVIDERS: PCP Internal Medicine; Referring Provider Nurse Practitioner Women's Health; Visit Provider Nurse Practitioner Women's Health
DX: Z12.31 Encounter for screening mammogram for malignant neoplasm of breast (principal)
CPT/HCPCS: 77063; 77067

== ENCOUNTER → 2024-12-05 | Outpatient (CLI) | payer OTHER, SELFPAY ==
[2024-12-05 16:27] LABS: HIV Nonreactive (Nonreactive); Syphilis Antibodies Nonreactive (Nonreactive)
[2024-12-08 04:07] LABS: Chlamydia By Nucleic Acid AMP Negative (Negative); Gonococcus By Nucleic Acid AMP Negative (Negative); HCV Quant. RNA PCR HCV Not Detected IU/mL (.); HSV 1 IgG Reactive (Non Reactive); HSV 2 IgG Non Reactive (Non Reactive)
== END | disposition home or self-care (01) ==
PROVIDERS: PCP Internal Medicine; Visit Provider Nurse Practitioner Women's Health
DX: Z11.3 Encounter for screening for infections with a predominantly sexual mode of transmission (principal); Z20.2 Contact with and (suspected) exposure to infections with a predominantly sexual mode of transmission
CPT/HCPCS: 36415; 86695; 86696; 86703; 86780; 87491; 87522; 87591

== ENCOUNTER 2024-12-14 07:50 | Outpatient (RCR) | payer OTHER, SELFPAY | END 2025-01-01 23:59 | LOC: NS 07:50 | PROVIDERS: PCP Internal Medicine; Referring Provider Internal Medicine; Visit Provider Internal Medicine | DX: Z71.3 Dietary counseling and surveillance (principal); E66.9 Obesity, unspecified; Z68.32 Body mass index [BMI] 32.0-32.9, adult | CPT/HCPCS: 97803 ==

== ENCOUNTER → 2024-12-22 | Outpatient (CLI) | payer OTHER, SELFPAY ==
[2024-12-22 12:36] LABS: Absolute Lymphocyte Count 1.85 X10^3/uL (0.83-4.51); Absolute Neutrophil Count 2.6 X10^3/uL (2.0-7.7); Basophil# 0.09 X10^3/uL; Basophil% 1.5 % (0-1); Eosinophil# 1.21 X10^3/uL; Eosinophils% 19.6 % (0-5); Hematocrit 44.5 % (37-47); Lymphocyte # 1.85 X10^3/ul (0.83-4.51); Mean Corp Hgb Conc 33.7 g/dL (32-36); Mean Corpuscular Hgb 31.7 pg (27.0-32.0); Mean Corpuscular Volume 94.1 fL (81-99); Mean Platelet Vol. 10.6 fl (6.2-12.0); Monocyte# 0.37 X10^3/uL; NRBC Flagged by Analyzer 0 % (0-5); Neutrophil # 2.62 X10^3/uL (2.7-7.7); Neutrophil % 42.6 % (47-70); Platelet Count 260 K/mm3 (150-450); RBC Distribution Width CV 12.1 % (11.6-14.6); RBC Distribution Width SD 42.3 fl (35.1-43.9); Red Blood Count 4.73 M/mm3 (4.2-5.4); White Blood Count 6.2 K/mm3 (4.4-11.0)
[2024-12-22 14:13] LABS: Hemoglobin A1c 5.2 % (<=5.6)
[2024-12-22 15:58] LABS: ALB/GLOB Ratio 1.4 RATIO (0.9-2.4); AST(SGOT) 18 U/L (<=31); Alanine Aminotransfer ALT/SGPT 18 U/L (<=34); Albumin, Serum 4.3 g/dL (3.5-5.0); Alkaline Phosphatase 63 U/L (35-104); Anion Gap 12 (5-15); BUN 8 mg/dL (4-19); BUN/Creat Ratio 11.9 RATIO (10-20); Calcium,Total 9.5 mg/dL (7.6-11.0); Carbon Dioxide 21.6 mmol/L (21.0-32.0); Chloride 105 mmol/L (98-108); Cholesterol 185 mg/dL (<=200); Creatinine, Serum 0.69 mg/dL (0.70-1.20); EST Glomerular Filtration Rate 109 (>60); Glucose 96 mg/dL (70-99); High Density Lipoprotein 41 mg/dL; Low Density Lipoprotein Calc. 114 mg/dL; Potassium 3.9 mmol/L (3.3-5.1); Protein, Total 7.3 g/dL (5.9-8.4); Sodium Level 139 mmol/L (133-145); Total Bilirubin 0.32 mg/dL (0.00-1.30); Triglycerides 151 mg/dL; Very Low Density Lipoprotein 30 mg/dL (5-40); Vitamin B12 1060 pg/mL (180-914); cholesterol:hdl ratio screen 4.56
== END | disposition home or self-care (01) ==
LOC: BIMLAB 09:48
PROVIDERS: PCP Internal Medicine; Referring Provider Internal Medicine; Visit Provider Internal Medicine
DX: I10 Essential (primary) hypertension (principal); F41.9 Anxiety disorder, unspecified; F32.A Depression, unspecified; E66.9 Obesity, unspecified; E03.8 Other specified hypothyroidism; E06.3 Autoimmune thyroiditis
CPT/HCPCS: 36415; 80053; 80061; 82607; 83036; 84443; 85025

== ENCOUNTER → 2025-03-07 | Outpatient (CLI) | payer OTHER, SELFPAY | END | disposition home or self-care (01) | LOC: LABSPEC 14:48 | PROVIDERS: PCP Internal Medicine; Visit Provider Nurse Practitioner Women's Health | DX: R10.2 Pelvic and perineal pain (principal) | CPT/HCPCS: 87070; 87205 ==

== ENCOUNTER → 2025-03-23 | Outpatient (CLI) | payer OTHER, SELFPAY ==
[2025-03-23 12:50] LABS: Hematocrit 44.4 % (37-47); Hemoglobin 14.9 g/dL (12.0-15.0); Immature Granulocytes Count 0.010 X10^3/uL (0.0-0.0); Mean Corp Hgb Conc 33.6 g/dL (32-36); Mean Corpuscular Volume 95.9 fL (81-99); Mean Platelet Vol. 10.5 fl (6.2-12.0); NRBC Flagged by Analyzer 0 % (0-5); Platelet Count 300 K/mm3 (150-450); RBC Distribution Width CV 12.0 % (11.6-14.6); RBC Distribution Width SD 42.1 fl (35.1-43.9); Red Blood Count 4.63 M/mm3 (4.2-5.4); White Blood Count 5.3 K/mm3 (4.4-11.0)
== END | disposition home or self-care (01) ==
LOC: BIMLAB 08:54
PROVIDERS: PCP Internal Medicine; Referring Provider Internal Medicine; Visit Provider Internal Medicine
DX: I10 Essential (primary) hypertension (principal)
CPT/HCPCS: 36415; 85025

== ENCOUNTER → 2025-03-29 | Outpatient (CLI) | payer OTHER, SELFPAY | END | disposition home or self-care (01) | LOC: LABSPEC 14:57 | PROVIDERS: PCP Internal Medicine; Referring Provider Nurse Practitioner Women's Health; Visit Provider Nurse Practitioner Women's Health | DX: N89.8 Other specified noninflammatory disorders of vagina (principal); R10.2 Pelvic and perineal pain | CPT/HCPCS: 87070; 87086; 87088; 87205 ==

== ENCOUNTER 2025-05-15 05:54 | Day surgery (SDC) | payer OTHER, SELFPAY ==
[2025-05-15] VITALS (8 sets, daily range): BP systolic 94–119; BP diastolic 51–74; PULSE 69–89; RESP 16; TEMP 36.2–36.9; O2SAT 97–100; BMI 31.6
--- OUTSIDE RECORDS SUMMARY | 2025-05-15 05:58 | XMS RPT_ITS | CCD ---
Author Organization [facility] Care Team Providers Care System Configuration Specialist Name Role Phone Dr. Andrew Graff Primary Care Provider Dr. Andrew Graff Referring Provider Tomasz WHEELER, LIAM Brewer Attending Provider Osvaldo SERVICE OBSERVER CHIEF, CHLOE-Jayne Armstrong Attending Provider Dr. Andrew Graff Primary Care Provider Dr. Andrew Graff Referring Provider Osvaldo SERVICE OBSERVER CHIEF, CHLOE-Jayne Armstrong Attending Provider [phone] Dr. Jeramy Kitchen Attending Provider [phone] Dr. Jeramy Kitchen Primary Care Provider 1(33 0) Dr. eJramy Kitchen Referring Provider [phone])2 Dr. Yemi Soto Attending Provider Dr. Jeramy Kitchen Primary Care Provider 1(33 0) Dr. Jeramy Kitchen Referring Provider [phone])2 Dr. Yemi Soto Attending Provider Dr. Jeramy Kitchen Attending Provider [phone])2 Dr. Jeramy Kitchen Primary Care Provider 1(33 0) Dr. Jeramy Kitchen Referring Provider [phone])2 Dr. Jeramy Kitchen Primary Care Provider 1(33 0) Dr. Jeramy Kitchen Attending Provider [phone])2 Dr. Sarah Kitchenewongbe Referring Provider [phone] LIAM Tabares Attending Provider [place] SERVICE OBSERVER CHIEF, SERVICE OBSERVER CHIEF-C Patti Attending Provider Dr. Jeramy Kitchen Primary Care Provider 1(33 0) Fidelina, Dr. Deshpande Attending Provider [phone] Fidelina, Dr. Deshpande Referring Provider [phone])2 Fidelina EDUARDO, Dr. Deshpande Primary Care Provider Fidelina EDUARDO, Dr. Deshpande Attending Provider 1(33 0) Fidelina EDUARDO, Dr. Deshpande Referring Provider 1(33 0) Osvaldo SERVICE OBSERVER CHIEF-C, Patti Attending Provider Osvaldo SERVICE OBSERVER CHIEF-C, Patti Referring Provider Fidelina EDUARDO, Dr. Deshpande Primary Care Provider Fidelina EDUARDO, Dr. Deshpande Attending Provider 1(33 0) Fidelina EDUARDO, Dr. Deshpande Referring Provider 1(33 0) Fidelina EDUARDO, Dr. Deshpande Primary Care Provider Fidelina EDUARDO, Dr. Deshpande Attending Provider 1(33 0) Fidelina EDUARDO, Dr. Deshpande Referring Provider 1(33 0) Fidelina EDUARDO, Dr. Deshpande Primary Care Physician Fidelina EDUARDO, Dr. Deshpande Referring Provider 1(33 0) Osvaldo SERVICE OBSERVER CHIEF-C, Patti Attending Physician [phone] Fidelina EDUARDO, Dr. Deshpande Attending Physician [phone] Osvaldo SERVICE OBSERVER CHIEF-C, Patti Referring Provider Fidelina EDUARDO, Dr. Deshpande Primary Care Physician Fidelina EDUARDO, Dr. Efewongbe Referring Provider Osvaldo SERVICE OBSERVER CHIEF-C, Patti Attending Physician Oleghe, Efewongbe Primary Care Unavailable [place] SERVICE OBSERVER CHIEF, Patti Referring Unavailable Osvaldo SERVICE OBSERVER CHIEF, Patti Attending Unavailable Oleghe, Efewongbe Referring Unavailable Oleghe, Efewongbe Primary Care Unavailable Oleghe, Efewongbe Attending Unavailable Oleghe, Efewongbe Referring Unavailable Oleghe, Efewongbe Primary Care Unavailable Oleghe, Efewongbe Attending Unavailable Oleghe, Efewongbe Primary Care Unavailable Osvaldo SERVICE OBSERVER CHIEF, Patti Attending Unavailable Oleghe, Efewongbe Primary Care Unavailable Oleghe, Efewongbe Referring Unavailable Oleghe, Efewongbe Attending Unavailable Oleghe, Efewongbe Primary Care Unavailable Osvaldo SERVICE OBSERVER CHIEF, Patti Referring Unavailable Osvaldo SERVICE OBSERVER CHIEF, Patti Attending Unavailable Oleghe, Efewongbe Primary Care Unavailable Oleghe, Efewongbe Referring Unavailable Oleghe, Efewongbe Attending Unavailable Oleghe, Efewongbe Primary Care Unavailable Oleghe, Efewongbe Referring Unavailable Oleghe, Efewongbe Attending Unavailable Oleghe, Efewongbe Referring Unavailable Oleghe, Efewongbe Primary Care Unavailable Oleghe, Efewongbe Attending Unavailable Oleghe, Efewongbe Primary Care Unavailable Oleghe, Efewongbe Referring Unavailable [place] SERVICE OBSERVER CHIEF, Patti Attending Unavailable Oleghe, Efewongbe Referring Unavailable [place] SERVICE OBSERVER CHIEF, Patti Attending Unavailable Oleghe, Efewongbe Primary Care Unavailable Oleghe, Efewongbe Primary Care Unavailable [place] SERVICE OBSERVER CHIEF, Patti Attending Unavailable Oleghe, Efewongbe Referring Unavailable Oleghe, Efewongbe Attending Unavailable Oleghe, Efewongbe Primary Care Unavailable Oleghe, Efewongbe Referring Unavailable Friend, Rodriguez Attending Unavailable Oleghe, Efewongbe Primary Care Unavailable Oleghe, Efewongbe Primary Care Unavailable Oleghe, Efewongbe Referring Unavailable Oleghe, Efewongbe Attending Unavailable Oleghe, Efewongbe Referring Unavailable Oleghe, Efewongbe Attending Unavailable Oleghe, Efewongbe Primary Care Unavailable Oleghe, Efewongbe Referring Unavailable Oleghe, Efewongbe Primary Care Unavailable Osvaldo SERVICE OBSERVER CHIEF, Patti Attending Unavailable Oleghe, Efewongbe Primary Care Unavailable Oleghe, Efewongbe Referring Unavailable Oleghe, Efewongbe Attending Unavailable Osvaldo SERVICE OBSERVER CHIEF, Patti Attending Unavailable Oleghe, Efewongbe Primary Care Unavailable [place] SERVICE OBSERVER CHIEF, Patti Referring Unavailable Oleghe, Efewongbe Referring Unavailable Oleghe, Efewongbe Attending Unavailable Oleghe, Efewongbe Primary Care Unavailable Allergies Allergy Classification Reported Allergen(s) Allergy Type Date of Onset Reaction(s) Facility (20 sources) Sulfonamides (Antibiotic); Translations: [SULFA (SULFONAMIDE ANTIBIOTICS)] Propensity to adverse reactions to drug (disorder) 5 AOF, Other [facility] Repository Medications Current Medications Medication Drug Class(es) Dates Sig (Normalized) Sig (Original) ALPRAZolam 0.25 mg oral tablet (12 sources) Benzodiazepine Start: 06-22-2024 take 1 tablet by mouth once daily as needed for anxiety cholecalciferol 0.05 mg oral capsule (13 sources) Vitamin D Start: 06-09-2023 take 1 capsule by mouth once daily [place] 6-Wjo-Dfi-Fish Oil (10 sources) Start: 12-05-2024 Start: 12-05-2024 [place] 3-Dha-Ep a-Fish Oil (Fish Oil) 300-1,000 mg capsule Active 1 NMA PO daily December 05, 2024 12:00am escitalopram 10 mg oral tablet (8 sources) Serotonin Reuptake Inhibitor Start: 12-22-2024 take 5 mg by mouth once daily, then take 1 tablet by mouth once daily ferrous sulfate 134 mg oral tablet (13 sources) Start: 06-09-2023 take 1 tablet by mouth once daily fluconazole 150 mg oral tablet (4 sources) Azole Antifungal Start: 04-01-2025 Start: 04-01-2025 Start: 04-01-2025 Start: 04-01-2025 losartan potassium 50 mg oral tablet (20 sources) Angiotensin 2 Receptor Lyndsay Start: 04-03-2025 take 1 tablet by mouth once daily Start: 04-03-2025 take 1 tablet by [facility] once daily Start: 01-19-2023 End: 04-03-2025 take 1 tablet by mouth once daily Losartan 50 mg tablet Discontinued 50 mg PO DAILY 90 1 June 22, 2024 8:06pm April 03, 2025 3:50pm Start: 09-21-2022 End: 01-13-2023 take 1 tablet by mouth once daily Losartan 50 mg tablet Discontinued 50 mg PO DAILY 30 1 December 25, 2022 11:18am January 13, 2023 3:00pm mecobalamin 5 mg disintegrat ing oral tablet (13 sources) Start: 06-09-2023 Start: 06-09-2023 take 1 ug by mouth once daily Mecobalamin (Vitamin B12) Active MCG PO DAILY June 09, 2023 12:00am 24 hr metFORMIN hydrochlorid e 500 mg extended release oral tablet (7 sources) Biguanide Start: 12-22-2024 take 1 tablet by tushar th twice daily Completed/Discontinued Medications Medication Drug Class(es) Dates Sig (Normalized) Sig (Original) amoxicillin 500 mg oral capsule (15 sources) Penicillin-class Antibacterial Start: 01-13-2023 End: 01-23-2023 take 1 capsule by mouth three times daily Amoxicillin 500 mg capsule Discontinued 500 mg PO THREE TIMES A DAY 30 10 0 January 13, 2023 12:00am January 22, 2023 12:00am January 23, 2023 12:13am clindamycin 20 mg/ml vaginal cream (4 sources) Lincosamide Antibacterial Start: 03-29-2025 End: 04-01-2025 Clindamycin Phosphate 2 % cream Discontinued 1 NMA VAGINAL AT BEDTIME 40 3 0 March 29, 2025 12:00am March 31, 2025 12:00am April 01, 2025 12:11am clobetasol propionate 0.0005 mg/mg topical ointment (20 sources) Corticosteroid Start: 03-19-2022 End: 07-02-2022 Clobetasol 0.05 % ointment Discontinued 1 NMA TOPICAL TWICE A DAY as needed for Psoriasis 60 3 March 19, 2022 12:00am July 02, 2022 10:31am Levonorgestrel-Eth inyl Estrad (20 sources) Progestin, Estrogen, Progestin-containing Intrauterine Device Start: 03-02-2022 End: 01-25-2023 Levonorgestrel-Eth inyl Estrad (Altavera (28)) 0.15-0.03 mg tablet Discontinued 1 {tbl} PO [place] [address] March 02, 2022 12:00am January 25, 2023 3:11pm 1 TAB orally active pills only for continuous cycling; Start: 03-02-2022 End: 01-25-2023 Levonorgestrel-Ethinyl Estra d (Altavera (28)) 0.15-0.03 mg tablet Discontinued 1 {tbl} PO .[facility] March 02, 2022 12:00am January 25, 2023 3:11pm 1 TAB orally active pills only for continuous cycling; Start: 03-02-2022 End: 01-25-2023 Levonorgestrel-Ethinyl Estra d (Altavera (28)) 0.15-0.03 mg tablet Discontinued 1 TABLET PO .[facility] March 01, 2022 11:00pm January 25, 2023 2:11pm 1 TAB orally active pills only for continuous cycling; Start: 03-02-2022 End: 01-25-2023 Levonorgestrel-Ethinyl Estra d (Altavera (28)) 0.15-0.03 mg tablet Discontinued 1 TABLET PO .[facility] March 02, 2022 12:00am January 25, 2023 3:11pm 1 TAB orally active pills only for continuous cycling; Start: 03-02-2022 Levonorgestrel -Ethinyl Estrad (Altavera (28)) 0.15-0.03 mg tablet Active 1 TABLET PO [place] [address] March 01, 2022 11:00pm 1 TAB orally active pills only for continuous cycling; Start: 03-02-2022 Levonorgestrel -Ethinyl Estrad (Altavera (28)) 0.15-0.03 mg tablet Active 1 TABLET PO [place] [address] March 02, 2022 12:00am 1 TAB orally active pills only for continuous cycling; famotidine 20 mg oral tablet (20 sources) Histamine-2 Receptor Antagonist Start: 09-18-2021 End: 03-19-2022 take 1 tablet by mouth once daily Famotidine (Pepcid) 20 mg tablet Discontinued 20 mg PO DAILY September 18, 2021 12:00am March 19, 2022 3:57pm levothyroxine sodium 0.1 mg oral tablet (20 sources) l-Thyroxine Start: 07-02-2022 End: 12-22-2024 take 1 tablet by mouth once daily Levothyroxine 100 mcg tablet Discontinued 100 ug PO DAILY 90 1 June 22, 2024 8:06pm December 22, 2024 9:49am LORazepam 0.5 mg oral tablet (20 sources) Benzodiazepine Start: 09-18-2021 End: 01-13-2023 take 1 tablet by mouth once daily as needed Lorazepam (Ativan) 0.5 mg tablet Discontinued 0.5 mg PO DAILY as needed September 18, 2021 12:00am January 13, 2023 3:00pm metroNIDAZOLE 0.0075 mg/mg vaginal gel (8 sources) Nitroimidazole Antimicrobial Start: 03-13-2025 End: 03-18-2025 Metronidazole 0.75 % (37.5mg/5 gram) gel Discontinued 1 NMA VAGINAL DAILY 70 5 0 March 13, 2025 12:00am March 17, 2025 12:00am March 18, 2025 12:06am Start: 03-11-2025 End: 03-13-2025 take 1 tablet by mouth twice daily Metronidazole 500 mg tablet Discontinued 500 mg PO TWICE A DAY 14 7 0 March 11, 2025 12:00am March 17, 2025 12:00am March 13, 2025 3:36pm raNITIdine 150 mg oral tablet (20 sources) Histamine-2 Receptor Antagonist Start: 09-09-2017 End: 09-18-2021 take 1 tablet by mouth at bedtime Ranitidine Hcl (Zantac) 150 mg tablet Discontinued 150 mg PO AT BEDTIME September 09, 2017 1:00am September 18, 2021 8:19am Problems Active Problems Problem Classification Problem Date Documented Date Episodic/Chronic Abdominal pain (12 sources) Upper abdominal pain, unspecified; Translations: [Female genital organ symptoms] Onset: 04-06-2017 03-07-2025 Episodic Allergic reactions (17 sources) Inflammatory dermatosis; Translations: [Dermatitis, unspecified] 01-27-2023 Episodic Anxiety disorders (20 sources) Anxiety; Translations: [Anxiety disorder, unspecified] Onset: 12-22-2024 06-22-2024 Chronic Essential hypertension (20 sources) Hypertensive disorder; Translations: [Essential (primary) hypertension] Onset: 04-05-2025 09-21-2022 Chronic Fluid and electrolyte disorders (20 sources) Hypokalemia; Translations: [Hypokalemia] 03-19-2022 Episodic Genitourinary symptoms and ill-defined conditions (5 sources) Female stress incontinence; Translations: [Stress incontinence (female) (male)] 02-05-2025 Chronic Comment on above: PFPT referral Menstrual disorders (20 sources) Menorrhagia; Translations: [Excessive and frequent menstruation with regular cycle] Chronic Comment on above: Nl US. Considering I UD Mood disorders (1 source) Mood disorders; Translations: [Depression, unspecified] Onset: 12-22-2024 Nonspecific chest pain (20 sources) Atypical chest pain; Translations: [Other chest pain] 08-26-2021 Episodic Nutritional deficiencies (19 sources) Vitamin D deficiency; Translations: [Vitamin D deficiency, unspecified] Onset: 07-18-2024 09-15-2022 Chronic Nutritional deficiencies (20 sources) Cobalamin deficiency; Translations: [Deficiency of other specified B group vitamins] 09-15-2022 Episodic Other circulatory disease (5 sources) Elevated blood pressure; Translations: [Elevated blood-pressure reading, without diagnosis of hypertension] 03-19-2022 Episodic Other circulatory disease (2 sources) Elevated blood-pressure reading, without diagnosis of hypertension; Translations: [Elevated blood pressure reading without diagnosis of hypertension] Episodic Other connective tissue disease (3 sources) Spasm; Translations: [Cramp and spasm] 07-02-2022 Episodic Other connective tissue disease (2 sources) Cramp and spasm; Translations: [Abnormal involuntary movements] 07-02-2022 Episodic Other female genital disorders (4 sources) Burning sensation of vagina; Translations: [Other specified conditions associated with female genital organs and menstrual cycle] 03-29-2025 Episodic Other female genital disorders (3 sources) Female genital organ symptoms; Translations: [Pelvic pressure in female] 03-07-2025 Episodic Other female genital disorders (1 source) Other specified noninflammatory disorders of vagina; Translations: [Other specified noninflammatory disorders of vagina] Onset: 04-27-2025 Episodic Other inflammatory condition of skin (20 sources) Psoriasis; Translations: [Psoriasis, unspecified] 03-19-2022 Chronic Other inflammatory condition of skin (2 sources) Psoriasis, unspecified; Translations: [Other psoriasis] Chronic Other nervous system disorders (12 sources) Carpal tunnel syndrome; Translations: [Carpal tunnel syndrome, unspecified upper limb] 04-19-2024 Chronic Other nervous system disorders (18 sources) Paresthesia; Translations: [Paresthesia of skin] 07-02-2022 Episodic Other nervous system disorders (2 sources) Paresthesia of skin; Translations: [Disturbance of skin sensation] 07-02-2022 Episodic Other nutritional; endocrine; and metabolic disorders (20 sources) Body mass index 30+ - obesity; Translations: [Obesity, unspecified] 09-21-2022 Chronic Other nutritional; endocrine; and metabolic disorders (3 sources) Obesity, unspecified; Translations: [Obesity, unspecified] Onset: 12-22-2024 09-21-2022 Chronic Other screening for suspected conditions (not mental disorders or infectious disease) (20 sources) Thyroid function tests abnormal; Translations: [Abnormal results of thyroid function studies] Onset: 12-05-2024 Episodic Other skin disorders (20 sources) Finding of neck region; Translations: [Localized swelling, mass and lump, neck] 03-19-2022 Episodic Other skin disorders (2 sources) Localized swelling, mass and lump, neck; Translations: [Swelling, mass, or lump in head and neck] Episodic Spondylosis; intervertebral disc disorders; other back problems (20 sources) Backache; Translations: [Dorsalgia, unspecified] 04-19-2024 Episodic Thyroid disorders (20 sources) Goiter; Translations: [Nontoxic goiter, unspecified] Onset: 12-22-2024 07-02-2022 Chronic Unclassified (4 sources) Patient encounter status Unclassified (4 sources) Z12.11 - Encounter for screening for malignant neoplasm of colon Past or Other Problems Problem Classification Problem Date Documented Date Episodic/Chronic Immunizations and screening for infectious disease (17 sources) At risk of sexually transmitted infection ; Translations: [Contact with and (suspected) exposure to infections with a predominantly sexual mode of transmission] Onset: 12-05-2024 12-05-2024 Episodic Results Test Name Value Interpretation Reference Range Facility Genital Culture Comprehensiv micah 04-01-2025 VAC Reason for Exam: Vaginal irritation No Neisseria or beta-hemolytic Streptococcus isolated. Presumptive C albicans Amount Growth 3+ G. vaginalis (Presumptive) G. vaginalis (Presumptive) Normal [facility] Comment on above: Performed By: #### M 100.2200, M100.3200, M1.1999 #### [facility] [address] [place], [address] Urine Cultureon 04-01-2025 URC Presumptive C albica ns [place] Count 1000-10,000 G. vaginalis (Presumptive) G. vaginalis (Presumptive) Normal [facility] Comment on above: Performed By: #### M 100.2200, M100.3200, M100.1999 #### [facility] [address] [place], [address] Genital cultureOrdered By: Osman Riley on 03-29-2025 Source specific culture G. vaginalis (Presumptive) Abnormal [facility] Gram Stainon 03-29-2025 GS Reason for Exam: Vaginal irritation Gram Stain 2+ Gram positive rods Rare White Blood Cells No Gram negative diplococci 2+ Gram negative rods Score = 4 Interpretation: 0-3 Normal, 4-6 Intermediate, 7-10 Positive BV Normal [facility] Comment on above: Performed By: #### M 100.2200, M100.3200, M1 #### [facility] [address] [place], [address] Gram stainOrdered By: Patti Riley on 03-29-2025 Microscopic observation Gram stain Nom (Unsp spec) [facility] Laboratory - Chemistry and C hemistry - challengeOrdered By: Patti Riley on 03-29-2025 Bilirubin Ql (U) Negative [facility] Glucose Ql (U) Negative [facility] Ketones Ql (U) Negative [facility] pH (U) 5.0 [pH] [facility] Specific gravity (U) [Rel density] 1.020 [facility] Urobilinogen (U) [Mass/Vol] Negative [facility] Laboratory - Hematology and Cell countsOrdered By: Patti Riley on 03-29-2025 Hemoglobin Ql (U) Negative [facility] Laboratory - Specimen inform ationOrdered By: Patti Riley on 03-29-2025 Clarity (U) Clear [facility] Color (U) YELLOW [facility] Laboratory - UrinalysisOrder ed By: Patti Riley on 03-29-2025 Nitrite Ql (U) Negative [facility] Protein Ql (U) Negative [facility] No Panel InformationOrdered By: Patti Riley on 03-29-2025 Urine Leukocytes Positive [facility] Urine Non-Hemolyzed Blood Negative [facility] POC Bacterial Vaginitis (Rapid) Negative [facility] [place] [facility] Visit Reporton 03-29-2025 [place] [facility] Visit Report [facility] [address], [address] [place] [address] OFFICE VISIT Date of Service: 03/29/25 MR#: [id number] Acct: [id number] Name: CAYLA WILKERSON Rep #: [id number] : 1980 Provider: DERKE anders Age/Sex: 44/F Location: [facility] Status: Signed Intake Vital Signs 03/23/25 08:25 03/29/25 13:14 03/29/25 13:18 Height 5 ft 2 in 5 ft 2 in 5 ft 2 in Weight: 171 lb 8 oz 174 lb 7 oz BMI 31.4 31.8 BP 128/78 H 120/78 Blood Pressure Location Lt brachial Position Sitting Respiration 16 Pulse 88 Pulse Source Monitor Temp 97.8 F Pulse Oximetry (%) 98 Oxygen Delivery Method room air Intake Visit Reasons: BV *ok per Resident Manager Required: No Is patient in pain?: No Allergies Sulfa (Sulfonamide Antibiotics) Allergy (Mild, Verified 03/29/25 13:14) Other Medications ???Medication ???Instructions ???Recorded ???Confirmed ???Type cholecalciferol (vitamin D3) 50 50 mcg PO DAILY 06/09/23 03/29/25 History mcg (2,000 unit) capsule ferrous sulfate 134 mg (27 mg 134 mg PO DAILY 06/09/23 03/29/25 History iron) tablet mecobalamin (vitamin B12) 5,000 mcg PO DAILY 06/09/23 03/29/25 His tory mcg disintegrating tablet alprazolam 0.25 mg tablet 0.25 mg PO QDAY PRN anxiety #30 03/29/25 Rx tabs losartan 50 mg tablet 50 mg PO DAILY #90 tabs 06/22/24 0 03/29/25 Rx omega 0-fhe-auy-fish oil 300 1 cap PO QDAY 12/05/24 03/29/25 Hi story mg-1,000 mg capsule (Fish Oil) escitalopram oxalate 10 mg tablet 10 mg PO QDAY #30 tabs 12/22/24 0 03/29/25 Rx (Lexapro) levothyroxine 100 mcg tablet 100 mcg PO DAILY #90 tabs 12/22/24 03/29/25 Rx metformin 500 mg tablet,extended 500 mg PO BID #60 tabs 12/22/24 Rx release 24 hr (Glucophage XR) clindamycin phosphate 2 % vaginal 1 appful vaginal QHS 3 days #40 0 03/29/25 03/29/25 Rx cream grams Post menopausal: No Patient : No : No PFSH Medical History Colon cancer screening Anxiety and depression Back pain Dermatitis Obesity (BMI 30-39.9) Hypertension Vitamin D deficiency Iron deficiency B12 deficiency Paresthesia 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 HPI BV *ok per Details: CAYLA WILKERSON is a 44 year old who presents for treated for BV on 03/07 but did use gel while on menses. Her symptoms improved a little but now again feeling vaginal burning and pressure. History 2 Elective abortions Hx Para 1 Spontaneous abortions Hx # Term Pregnancies Ectopic pregnancies Hx # Pregnancies Multiple births # of living children Past Pregnancies Del. Date Name GA/Weeks Outcome Route Bth Weight Gen Labor Lgth Anesthesia Del Locatn Provider FOB Unknown 2011 Heather ROS Const Constitutional: Reports system reviewed and no additional complaints, except as documented Eyes Eyes: Reports system reviewed and no additional complaints, except as documented GI GI: Denies abdominal pain or change in bowel habits : Reports as per HPI Exam Const General: cooperative and no acute distress Orientation: oriented x3 General: bladder normal to palpation External Female Exam: normal external appearance and normal appearance of the urethra Urethra: normal appearance of the urethra Speculum Exam - Vagina: normal appearance of the vagina, normal vaginal discharge, no lesions and nontender Speculum Exam - Cervix: normal appearance of the cervix Bimanual Exam- Vagina Uterus: normal bimanual exam, uterine size normal, bladder normal to palpation, uterine shape normal, uterine mobility normal and non-tender Bimanual Exam- Adnexa, other: normal adnexae, no masses and non-tender Results POC Urinalysis Dip (Clinic) Office Urine Color YELLOW Last Edit by Irma Wahl on 03/29/25 13:31 Office Urine Clarity Clear Last Edit by Irma Wahl on 03/29/25 13:31 Office Urine Glu (more content not included)... Normal [facility] Urine cultureOrdered By: Diann Riley on 03-29-2025 Bacteria identified Cx Nom (U) Presumptive C albicans Abnormal [facility] Bacteria identified Cx Nom (U) G. vaginalis (Presumptive) Abnormal [facility] Absolute lymphocyte countOrd ered By: Jeramy Kitchen on 03-23-2025 Lymphocytes Auto (Unsp spec) [#/Vol] 1.79 10*3/uL 0.83-4.51 [facility] Absolute neutrophil countOrd ered By: Jeramy Kitchen on 03-23-2025 Neutrophils (Bld) [#/Vol] 2.6 10*3/uL 2.0-7.7 [facility] Automated lymphocyte count a s percentage of total leukocytesOrdered By: Jeramy Kitchen on 03-23-2025 Lymphocytes/100 WBC Auto (Unsp spec) 33.6 % 19-41 [facility] Basophil percentageOrdered B y: Jeramy Kitchen on 03-23-2025 Basophils/100 WBC (Bld) 1.3 % High 0-1 [facility] CBC W/Diff, Automatedon 03-05 Absolute Lymph 1.79 X10 3/uL Normal 0.83-4.51 [facility] Comment on above: Performed By: #### L 100.0100 #### [facility] Laboratory [address] [place], [address] Absolute Neut 2.6 X10 3/uL Normal 2.0-7.7 [facility] Comment on above: Performed By: #### L 100.0100 #### [facility] Laboratory [address] [place], [address] Basophils/100 WBC (Bld) 1.3 % High 0-1 [facility] Comment on above: Performed By: #### L 100.0100 #### [facility] Laboratory [address] [place], [address] Eosinophils/100 WBC (Bld) 9.4 % High 0-5 [facility] Comment on above: Performed By: #### L 100.0100 #### [facility] [address] [place], [address] Erythrocyte distribution width (RBC) [Ratio] 12.0 % Normal 11.6-14.6 [facility] Comment on above: Performed By: #### L 100.0100 #### [facility] [address] [place], [address] Hematocrit (Bld) [Volume fraction] 44.4 % Normal 37-47 [facility] Comment on above: Performed By: #### L 100.0100 #### [facility] [address] [place], [address] Hemoglobin (Bld) [Mass/Vol] 14.9 g/dL Normal 12.0-15.0 [facility] Comment on above: Performed By: #### L 100.0100 #### [facility] [address] [place], [address] IG% 0.200 Normal 0.0-0.9 [facility] Comment on above: Result Comment: IG% - Immature Granulocytes (promyelocytes, myelocytes and metamyelocytes) > 1% indicates that a LEFT SHIFT is Present. Performed By: #### L 100.0100 #### [facility] [address] [place], [address] Lymphocytes/100 WBC (Bld) 33.6 % Normal 19-41 [facility] Comment on above: Performed By: #### L 100.0100 #### [facility] [address] [place], [address] MCH (RBC) [Entitic mass] 32.2 pg High 27.0-32.0 [facility] Comment on above: Performed By: #### L 100.0100 #### [facility] [address] [place], [address] MCHC (RBC) [Mass/Vol] 33.6 g/dL Normal 32-36 [facility] Comment on above: Performed By: #### L 100.0100 #### [facility] [address] [place], [address] MCV (RBC) [Entitic vol] 95.9 fL Normal 81-99 [facility] Comment on above: Performed By: #### L 100.0100 #### [facility] [address] [place], [address] Monocytes/100 WBC (Bld) 6.8 % Normal 0-10 [facility] Comment on above: Performed By: #### L 100.0100 #### [facility] [address] [place], [address] Neutrophils/100 WBC (Bld) 48.7 % Normal 47-70 [facility] Comment on above: Performed By: #### L 100.0100 #### [facility] [address] [place], [address] Nucleated RBC (Bld) [#/Vol] 0 10*3/uL Normal 0-5 [facility] Comment on above: Performed By: #### L 100.0100 #### [facility] [address] [place], [address] Platelet mean volume (Bld) [Entitic vol] 10.5 fL Normal 6.2-12.0 [facility] Comment on above: Performed By: #### L 100.0100 #### [facility] [address] [place], [address] Platelets (Bld) [#/Vol] 300 10*3/uL Normal 150-450 [facility] Comment on above: Performed By: #### L 100.0100 #### [facility] [address] [place], [address] RBC (Bld) [#/Vol] 4.63 10*6/uL Normal 4.2-5.4 [facility] Comment on above: Performed By: #### L 100.0100 #### [facility] [address] [place], [address] RDW SD 42.1 fl Normal 35.1-43.9 [facility] Comment on above: Performed By: #### L 100.0100 #### [facility] Laboratory [address] [place], [address] WBC (Bld) [#/Vol] 5.3 10*3/uL Normal 4.4-11.0 [facility] Comment on above: Performed By: #### L 100.0100 #### [facility] Laboratory [address] [place], [address] Eosinophil percentageOrdered By: alvaro Kitchen on 03-23-2025 Eosinophils/100 WBC (Bld) 9.4 % High 0-5 [facility] Erythrocyte distribution wid th ratioOrdered By: [facility]az[facility]aciela on 03-23-2025 Erythrocyte distribution width (RBC) [Ratio] 12.0 % 11.6-14.6 [facility] Erythrocyte distribution wid th standard deviationOrdered By: [facility] Kitchen on 03-23-2025 Erythrocyte distribution width (RBC) [Ratio] 42.1 fl 35.1-43.9 [facility] Hematocrit Auto (Bld) [Volum e fraction]Ordered By: [facility] on 03-23-2025 Hematocrit (Bld) [Volume fraction] 44.4 % 37-47 [facility] Hemoglobin measurementOrdere d By: [facility] on 03-23-2025 Hemoglobin (Bld) [Mass/Vol] 14.9 g/dL 12.0-15.0 [facility] Immature granulocytes/100 WB C Auto (Bld)Ordered By: [facility] on 03-23-2025 Immature granulocytes/100 WBC (Bld) 0.200 % 0.0-0.9 [facility] Comment on above: IG% - Immature Granu locytes (promyelocytes, myelocytes and metamyelocytes) > 1% indicates that a LEFT SHIFT is Present. Internal Medicine Office Vis itojeff 03-23-2025 Internal Medicine Office Visit [facility] [address] [place] [address] [address] [place] [address] OFFICE VISIT Date of Service: 03/23/25 MR#: [id number] Acct: [id number] Name: CAYLA WILKERSON Rep #: [id number] : 1980 Provider: Dr. Jeramy montoya MD Age/Sex: 44/F Location: [facility] Status: Signed Intake Vital Signs 12/22/24 09:01 03/07/25 11:29 03/23/25 08:25 Height 5 ft 2 in 5 ft 2 in 5 ft 2 in Weight: 171 lb 8 oz BMI 31.4 BP 128/78 H Blood Pressure Location Lt brachial Position Sitting Respiration 16 Pulse 88 Pulse Source Monitor Temp 97.8 F Temp Source Temporal Pulse Oximetry (%) 98 Oxygen Delivery Method room air Intake Visit Reasons: 3 M FU Chief Complaint: fu Resident Manager Required: No Accompanied by: Self Is patient in pain?: No Allergies Sulfa (Sulfonamide Antibiotics) Allergy (Mild, Verified 03/23/25 08:21) Other Medications ???Medication ???Instructions ???Recorded ???Confirmed ???Type cholecalciferol (vitamin D3) 50 50 mcg PO DAILY 06/09/23 03/23/25 History mcg (2,000 unit) capsule ferrous sulfate 134 mg (27 mg 134 mg PO DAILY 06/09/23 03/23/25 History iron) tablet mecobalamin (vitamin B12) 5,000 mcg PO DAILY 06/09/23 03/23/25 His tory mcg disintegrating tablet alprazolam 0.25 mg tablet 0.25 mg PO QDAY PRN anxiety #30 03/23/25 Rx tabs losartan 50 mg tablet 50 mg PO DAILY #90 tabs 06/22/24 0 03/23/25 Rx omega 5-pcu-kng-fish oil 300 1 cap PO QDAY 12/05/24 03/23/25 Hi story mg-1,000 mg capsule (Fish Oil) escitalopram oxalate 10 mg tablet 10 mg PO QDAY #30 tabs 12/22/24 0 03/23/25 Rx (Lexapro) levothyroxine 100 mcg tablet 100 mcg PO DAILY #90 tabs 12/22/24 03/23/25 Rx metformin 500 mg tablet,extended 500 mg PO BID #60 tabs 12/22/24 Rx release 24 hr (Glucophage XR) [facility] Medical History Anxiety and depression Back pain Dermatitis Obesity (BMI 30-39.9) Hypertension Vitamin D deficiency Iron deficiency B12 deficiency Paresthesia 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 HPI HPI Chief Complaint: fu Details: CAYLA WILKERSON, is a 44-year-old female presenting for follow-up of her chronic conditions. No acute concerns at this time. At her last visit, she was started on Lexapro due to concerns for anxiety. Also history of depression. She however states that she was hesitant to start it due to concerns about potential side effects but now concerned and willing to start it because her daughter has been concerned about her emotional health lately. She was also started on metformin to help with weight loss. Again, she states that she was hesitant on starting this during the summer months but plans to resume this shortly. Has been colleen stafford dietary and lifestyle changes. Currently at a BMI of 31.4. History of hypertension, blood pressure today at 128/78 mmHg. Currently on losartan which she reports compliance with. Also history of hypothyroidism currently on levothyroxine. No heat or cold intolerance or unintentional weight changes. Yet to get her colon cancer screening done, she states that she had a referral but did not hear from them. 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 Bacterial vaginosis. Follows up with dermatology at least yearly. ROS Const Constitutional: No body ache, excessive sweating, fatigue, fever(s), frequent falls, headache(s), snoring, weakness, weight change, sleep problems or change in appetite Eyes Eyes: No blurry vision, change in vision, vision loss, dry eyes, eye pain or Light sensitivity ENT ENT: No abnormal hearing, ear or mastoid pain, tinnitus, nasal congestion, headache(s), neck pain or sore throat Resp Respiratory: No cough, excessive phlegm production, hemoptysis, shortness of breath, snoring or wheezing Cardio Cardiology: No chest pain at rest, chest pain with exertion, excessive sweating, shortness of breath, dyspnea on exertion, lightheadedness, orthopnea or palpitations G (more content not included)... Normal [facility] MCV (mean corpuscular volume ) determinationOrdered By: Jeramy Kitchen on 03-23-2025 MCV (RBC) [Entitic vol] 95.9 fL 81-99 [facility] Mean corpuscular hemoglobin (MCH) determinationOrdered By: Jeramy Kitchen on 03-23-2025 MCH (RBC) [Entitic mass] 32.2 pg High 27.0-32.0 [facility] Mean corpuscular hemoglobin concentration (MCHC) determinationOrdered By: Jeramy Kitchen on 03-23-2025 MCHC (RBC) [Mass/Vol] 33.6 g/dL 32-36 [facility] Mean platelet volume determi nationOrdered By: Jeramy Kitchen on 03-23-2025 Platelet mean volume (Bld) [Entitic vol] 10.5 fL 6.2-12.0 [facility] Monocyte percentageOrdered B y: Jeramy Kitchen on 03-23-2025 Monocytes/100 WBC (Bld) 6.8 % 0-10 [facility] Neutrophil percentageOrdered By: indiomohawkshmuel Kitchen on 03-23-2025 Neutrophils/100 WBC (Bld) 48.7 % 47-70 [facility] Nucleated red blood cell per centageOrdered By: Jeramy De Pazrosendograciela on 03-23-2025 Nucleated RBC/100 WBC (Bld) [Ratio] 0 % 0-5 [facility] Platelet countOrdered By: Sarah indiosvetlana Kitchen on 03-23-2025 Platelets (Bld) [#/Vol] 300 10*3/uL 150-450 [facility] RBC Auto (Bld) [#/Vol]Ordere d By: Jeramy Kitchen on 03-23-2025 RBC (Bld) [#/Vol] 4.63 10*6/uL 4.2-5.4 [facility] White blood cell (WBC) count Ordered By: Jeramy Kitchen on 03-23-2025 WBC (Bld) [#/Vol] 5.3 10*3/uL 4.4-11.0 [facility] Inital Evaluation (1) - PTon 03-21-2025 Inital Evaluation (1) - PT [facility] Physical Therapy [facility] [address] [place] [address] / REHABILITATION SERVICES INITIAL EVALUATION MR#: [id number] Acct: [id number] Name: CAYLA WILKERSON Rep #: [id number] : 1980 44 From: Shanae Johnson Referring Dr.: DEREK Thomas Status: REG RCR Insurance: [facility] SELF PAY INSURANCE Patient's Visit Information Visit Information Visit Information: CAYLA WILKERSON is a 44 year old F referred to Physical Therapy by DEREK Thomas with a diagnosis of Stress incontinence N39.3. Date of Evaluation: 03/21/25 Physical Therapist: Shanae Johnson Visit Plan Frequency: 1x/Week Duration: 3 Months Plan: Cayla would benefit from skilled PT intervention to address her stress incontinence. She has mild, moderate pelvic floor tightness and weakness which we will address with manual therapy and pelvic floor strengthening. Next visit continue pelvic floor releases bilaterally and superiorly at urethral sphincter. She deals with stress incontinence and a feeling of vaginal pressure and like a feeling of a UTI. Add week 2 next visit. Evaluate deep breathing (she deals with OCD and anxiety). Subjective Subjective: She sometimes urinates laughing, coughing, throwing up, coughing in the last couple of years. Mild amount. She doesn't wear a pad of anything. Mild annoyance. Random occurrence. Incontinence is getting worse. She thought she was getting UTI. They tested her for BV and have treated her and no improvements. Pressure vaginally since end of February. She feels thicker down there. Feels like a tampon is stuck there. Always there. Being off her feet helps somewhat. She can hold her urine for a long time. She can barely stop her urine flow. Chronic constipation. She goes once every 3 days. Has improved with probiotics. Low back pain chronic and always. Constant 5/10. No pelvic pain or lower abdominal pain. She has OCD and wonders if she has a tampon still in. No pain with penetration. 1 child vaginal delivery (13 years ago). 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 Objective Objective: She gives consent for pelvic floor exam, pelvic floor muscle exam, Pelvic floor muscle strumming and massage bilaterally No evidence of cystocele or rectocele but patient on her period and hard to fully evaluate due to bleeding LAYCOCK 1+/3/2/2 Mild, moderate pelvic floor tightness bilaterally (worse on left side) and superiorly at urethral sphincter did not evaluate deep breathing today POPDI-6 11, CRAD-8 9, FE-6 15 Goals Goal 1:: Cayla will be able to cough or sneeze without leaking. Goal Time Frame: 8-12 Weeks Goal 2:: Cayla will be able to laugh without leaking. Goal Time Frame: 6-8 Weeks Goal 3:: Cayla will be able to go thru day to day activities without feeling vaginal pressure or the feeling of a UTI. Goal Time Frame: 8-12 Weeks Rehabilitation Potential Physical Therapy Diagnosis: Stress incontinence N39.3 Rehabilitation Potential: Excellent Anticipated Interventions Patient/Client Instruction: Educate patient on: Condition and Plan of Care For the Purpose of:: To improve muscle performance and motor function, To improve health and function and To improve self management Therapeutic Exercise to Include: Strength training For the Purpose of:: To improve muscle performance and motor function, To improve health and function and To improve self management Manual Therapy Techniques to Include: Trigger point massage and Soft tissue mobilization For the Purpose of:: To improve muscle performance and motor function, To improve health and function and To improve self management Text: Thank you for the opportunity to evaluate your patient. For Medicare and Medicare HMO plans, please review the plan of care and approve it. It will need to be FAXED BACK to us at [phone] for Medicare purposes. For Medicare only, by signing this I certify the plan of care. Please let me know if there are questions or concerns regarding this plan of care. Physician Signature: Date: 03/21/25 0705 CC: DEREK Riley; Dr. Jeramy Kitchen MD MG Signed Normal [facility] Genital Culture Comprehensiv micah 03-09-2025 VAC Reason for Exam: pel benoit pain No yeast, Neisseria or beta-hemolytic Streptococcus isolated. G. vaginalis (Presumptive) Amount Growth 3+ Normal [facility] Comment on above: Performed By: #### M 100.3200, M100.1999 #### [facility] Laboratory [address] [facility] [place], [place], [address] Genital cultureOrdered By: Osman Riley on 03-07-2025 Source specific culture G. vaginalis (Presumptive) Abnormal [facility] Gram Stainon 03-07-2025 GS Reason for Exam: pel benoit pain Gram Stain 3+ Gram variable geoffrey 1+ Gram negative rods 2+ Gram positive rods No Gram negative diplococci Score =6 Interpretation: 0-3 Normal, 4-6 Intermediate, 7-10 Positive BV Normal [facility] Comment on above: Performed By: #### M 100.3200, M100.1999 #### [facility] Laboratory [address] [place], [place], [id number] Gram stainOrdered By: Patti Riley on 03-07-2025 Microscopic observation Gram stain Nom (Unsp spec) [facility] Laboratory - Chemistry and C hemistry - challengeOrdered By: Patti Riley on 03-07-2025 Bilirubin Ql (U) Negative [facility] Glucose Ql (U) Negative [facility] Ketones Ql (U) Negative [facility] pH (U) 6.0 [pH] [facility] Specific gravity (U) [Rel density] 1.010 [facility] Urobilinogen (U) [Mass/Vol] Negative [facility] Laboratory - Hematology and Cell countsOrdered By: Patti Riley on 03-07-2025 Hemoglobin Ql (U) Negative [facility] Laboratory - Specimen inform ationOrdered By: Patti Riley on 03-07-2025 Clarity (U) Cloudy [facility] Color (U) YELLOW [facility] - UrinalysisOrder ed By: Patti Riley on 03-07-2025 Nitrite Ql (U) Negative [facility] Protein Ql (U) Negative [facility] No Panel InformationOrdered By: Pattibertin Reiss on 03-07-2025 Urine Leukocytes Negatve [facility] Urine Non-Hemolyzed Blood Negative [facility] [place] [facility] Visit Reporton 03-07-2025 [place] [facility] Visit Report [facility] [address], [address] [place] [address] OFFICE VISIT Date of Service: 03/07/25 MR#: [id number] Acct: [id number] Name: CAYLA WILKERSON Rep #: [id number] : 1980 Provider: DEREK anders Age/Sex: 44/F Location: [facility] Status: Signed Intake Vital Signs 12/22/24 09:01 03/07/25 11:26 03/07/25 11:29 Height 5 ft 2 in 5 ft 2 in 5 ft 2 in Weight: 173 lb 8 oz 176 lb 8 oz BMI 31.7 32.3 BP 132/78 H 138/84 H Blood Pressure Location Lt brachial Position Sitting Respiration 16 Pulse 86 Pulse Source Monitor Temp 96.1 F L Pulse Oximetry (%) 97 Oxygen Delivery Method room air Intake Visit Reasons: vaginal irritatio/pressure Chief Complaint: Vaginal irritation Resident Manager Required: No Is patient in pain?: No Allergies Sulfa (Sulfonamide Antibiotics) Allergy (Mild, Verified 03/07/25 11:26) Other Medications ???Medication ???Instructions ???Recorded ???Confirmed ???Type cholecalciferol (vitamin D3) 50 50 mcg PO DAILY 06/09/23 03/07/25 History mcg (2,000 unit) capsule ferrous sulfate 134 mg (27 mg 134 mg PO DAILY 06/09/23 03/07/25 History iron) tablet mecobalamin (vitamin B12) 5,000 mcg PO DAILY 06/09/23 03/07/25 His tory mcg disintegrating tablet alprazolam 0.25 mg tablet 0.25 mg PO QDAY PRN anxiety #30 03/07/25 Rx tabs losartan 50 mg tablet 50 mg PO DAILY #90 tabs 06/22/24 0 03/07/25 Rx omega 5-jvm-kwu-fish oil 300 1 cap PO QDAY 12/05/24 03/07/25 Hi story mg-1,000 mg capsule (Fish Oil) escitalopram oxalate 10 mg tablet 10 mg PO QDAY #30 tabs 12/22/24 0 03/07/25 Rx (Lexapro) levothyroxine 100 mcg tablet 100 mcg PO DAILY #90 tabs 12/22/24 03/07/25 Rx metformin 500 mg tablet,extended 500 mg PO BID #60 tabs 12/22/24 Rx release 24 hr (Glucophage XR) Is last menstrual period known: Yes Last Menstrual Period: 02/28/25 Post menopausal: No Patient : No : No [facility] Medical History Anxiety and depression Back pain Dermatitis Obesity (BMI 30-39.9) Hypertension Vitamin D deficiency Iron deficiency B12 deficiency Paresthesia 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 HPI vaginal irritatio/pressure Details: CAYLA WILKERSON is a 44 year old who presents for vaginal pressure without discharge or odor. Occasionally with have a burning sensation. Same sexual partner. STD evaluation negative December 2024. Female Reproductive History Last Menstrual Period: 02/28/25 History 2 Elective abortions Hx Para 1 Spontaneous abortions Hx # Term Pregnancies Ectopic pregnancies Hx # Pregnancies Multiple births # of living children Past Pregnancies Del. Date Name GA/Weeks Outcome Route Bth Weight Infant Gen Labor Lgth Anesthesia Del Locatn Provider FOB Unknown 2011 Heather ROS Const Constitutional: Reports system reviewed and no additional complaints, except as documented Eyes Eyes: Reports system reviewed and no additional complaints, except as documented GI GI: Denies abdominal pain or change in bowel habits : Reports as per HPI Exam Const General: cooperative and no acute distress Orientation: oriented x3 General: bladder normal to palpation External Female Exam: normal external appearance and normal appearance of the urethra Urethra: normal appearance of the urethra Speculum Exam - Vagina: normal appearance of the vagina, normal vaginal discharge, no lesions and nontender Speculum Exam - Cervix: normal appearance of the cervix Bimanual Exam- Vagina Uterus: normal bimanual exam, uterine size normal, bladder normal to palpation, uterine shape normal, uterine mobility normal and non-tender Bimanual Exam- Adnexa, other: normal adnexae, no masses and non-tender Results POC Urinalysis Dip (Clinic) Office Urine Color YELLOW Last Edit by Irma Wahl on 03/07/25 11:37 Office Urine Clarity (more content not included)... Normal [facility] Absolute lymphocyte countOrd ered By: Jeramy Kitchen on 12-22-2024 Lymphocytes Auto (Unsp spec) [#/Vol] 1.85 10*3/uL 0.83-4.51 [facility] Absolute neutrophil countOrd ered By: Jeramy Kithcen on 12-22-2024 Neutrophils (Bld) [#/Vol] 2.6 10*3/uL 2.0-7.7 [facility] Anion gap in Serum or Plasma Ordered By: Jeramy Kitchen on 12-22-2024 Anion gap [Moles/Vol] 12 mmol/L - [facility] Automated lymphocyte count a s percentage of total leukocytesOrdered By: Jeramy Kitchen on 12-22-2024 Lymphocytes/100 WBC Auto (Unsp spec) 30.0 % - [facility] BUN/creatinine ratioOrdered By: Jeramy Kitchen on 12-22-2024 Urea nitrogen/Creatinine [Mass ratio] 11.9 mg/mg - [facility] Basophil percentageOrdered B y: Jeramy Kitchen on 12-22-2024 Basophils/100 WBC (Bld) 1.5 % High 0-1 [facility] Bilirubin, totalOrdered By: Jeramy Kitchen on 12-22-2024 Bilirubin [Mass/Vol] 0.32 mg/dL 0.00-1.30 [facility] CBC W/Diff, Automatedon 12-04 Absolute Lymph 1.85 X10 3/uL Normal 0.83-4.51 [facility] Comment on above: Performed By: #### M 100.2200, M100.3200, #### [facility] [address] [place], [address] Absolute Neut 2.6 X10 3/uL Normal 2.0-7.7 [facility] Comment on above: Performed By: #### M 100.2200, M100.320, #### [facility] [address] [place], [address] Basophils/100 WBC (Bld) 1.5 % High 0-1 [facility] Comment on above: Performed By: #### M 100.2200, M100.3200, #### [facility] [address] [place], [address] Eosinophils/100 WBC (Bld) 19.6 % High 0-5 [facility] Comment on above: Performed By: #### M 100.2200, M100.3200, #### [facility] [address] [place], [address] Erythrocyte distribution width (RBC) [Ratio] 12.1 % Normal 11.6-14.6 [facility] Comment on above: Performed By: #### M 100.2200, M100.3200, #### [facility] [address] [place], [address] Hematocrit (Bld) [Volume fraction] 44.5 % Normal 37-47 [facility] Comment on above: Performed By: #### M 100.2200, M100.3200, #### [facility] [address] [place], [address] Hemoglobin (Bld) [Mass/Vol] 15.0 g/dL Normal 12.0-15.0 [facility] Comment on above: Performed By: #### M 100.2200, M100.3200, #### [facility] [address] [place], [address] IG% 0.300 Normal 0.0-0.9 [facility] Comment on above: Result Comment: IG% - Immature Granulocytes (promyelocytes, myelocytes and metamyelocytes) > 1% indicates that a LEFT SHIFT is Present. Performed By: #### M 100.2200, M100.3200, #### [facility] [address] [place], [address] Lymphocytes/100 WBC (Bld) 30.0 % Normal 19-41 [facility] Comment on above: Performed By: #### M 100.0, M100.3199, #### [facility] [address] [place], [address] MCH (RBC) [Entitic mass] 31.7 pg Normal 27.0-32.0 [facility] Comment on above: Performed By: #### M 100.0, M100.3200, #### [facility] [address] [place], [address] MCHC (RBC) [Mass/Vol] 33.7 g/dL Normal 32-36 [facility] Comment on above: Performed By: #### M 100.2200, M100.3200, #### [facility] [address] [place], [address] MCV (RBC) [Entitic vol] 94.1 fL Normal 81-99 [facility] Comment on above: Performed By: #### M 100.2200, M100.3200, #### [facility] [address] [place], [address] Monocytes/100 WBC (Bld) 6.0 % Normal 0-10 [facility] Comment on above: Performed By: #### M 100.2200, M100.3200, #### [facility] [address] [place], [address] Neutrophils/100 WBC (Bld) 42.6 % Low 47-70 [facility] Comment on above: Performed By: #### M 100.2200, M100.3200, #### [facility] [address] [place], [address] Nucleated RBC (Bld) [#/Vol] 0 10*3/uL Normal 0-5 [facility] Comment on above: Performed By: #### M 100.2200, M100.3200, #### [facility] [address] [place], [address] Platelet mean volume (Bld) [Entitic vol] 10.6 fL Normal 6.2-12.0 [facility] Comment on above: Performed By: #### M 100.2200, M100.3200, #### [facility] [address] [place], [address] Platelets (Bld) [#/Vol] 260 10*3/uL Normal 150-450 [facility] Comment on above: Performed By: #### M 100.2200, M100.3200, #### [facility] [address] [place], [address] RBC (Bld) [#/Vol] 4.73 10*6/uL Normal 4.2-5.4 [facility] Comment on above: Performed By: #### M 100.2200, M100.3200, #### [facility] [address] [place], [address] RDW SD 42.3 fl Normal 35.1-43.9 [facility] Comment on above: Performed By: #### M 100.2200, M100.3200, #### [facility] [address] [place], [address] WBC (Bld) [#/Vol] 6.2 10*3/uL Normal 4.4-11.0 [facility] Comment on above: Performed By: #### M 100.2200, M100.3200, #### [facility] [address] [place], [address] Calculated very low density lipoprotein (VLDL) cholesterol measurementOrdered By: Jeramy Kitchen on 12-22-2024 Calculated very low density lipoprotein (VLDL) cholesterol measurement 30 mg/dL 5-40 [facility] Carbon dioxide, total [Moles /volume] in Central venous bloodOrdered By: Jeramy Kitchen on 12-22-2024 CO2 [Moles/Vol] 21.6 mmol/L 21.0-32.0 [facility] Chloride assayOrdered By: Sarah Kitchne on 12-22-2024 Chloride [Moles/Vol] 105 mmol/L 98-108 [facility] Comprehensive Metabolic Prof ilon 12-22-2024 Albumin [Mass/Vol] 4.3 g/dL Normal 3.5-5.0 [facility] Comment on above: Performed By: #### M 100.2200, M100.3200, #### [facility] [address] [place], [address] Albumin/Globulin [Mass ratio] 1.4 {ratio} Normal 0.9-2.4 [facility] Comment on above: Performed By: #### M 100.2200, M100.3200, #### [facility] [address] [place], [address] ALK PHOS 63 U/L Normal 35-104 [facility] Comment on above: Performed By: #### M 100.2200, M100.3200, #### [facility] [address] [place], [address] ALT [Catalytic activity/Vol] 18 U/L Normal <=34 [facility] Comment on above: Performed By: #### M 100.2200, M100.3200, #### [facility] [address] [place], [address] AST [Catalytic activity/Vol] 18 U/L Normal <=31 [facility] Comment on above: Performed By: #### M 100.0, M100.3200, #### [facility] [address] [place], [address] Bilirubin [Mass/Vol] 0.32 mg/dL Normal 0.00-1.30 [facility] Comment on above: Performed By: #### M 100.2200, M100.3200, #### [facility] [address] [place], [address] BUN/CRE 11.9 RATIO Normal 10-20 [facility] Comment on above: Performed By: #### M 100.2200, M100.3200, #### [facility] [address] [place], [address] Calcium [Mass/Vol] 9.5 mg/dL Normal 7.6-11.0 [facility] Comment on above: Performed By: #### M 100.2200, M100.3200, #### [facility] [address] [place], [address] Chloride [Moles/Vol] 105 mmol/L Normal 98-108 [facility] Comment on above: Performed By: #### M 100.2200, M100.3200, #### [facility] [address] [place], [address] CO2 [Moles/Vol] 21.6 mmol/L Normal 21.0-32.0 [facility] Comment on above: Performed By: #### M 100.2200, M100.3200, #### [facility] [address] [place], [address] Creatinine [Mass/Vol] 0.69 mg/dL Low 0.70-1.20 [facility] Comment on above: Performed By: #### M 100.0, M1.3199, #### [facility] [address] [place], [address] GAP 12 Normal 5-15 [facility] Comment on above: Performed By: #### M 100.0, M100.3199, #### [facility] [address] [place], [address] GFR/1.73 sq M.predicted among non-blacks MDRD (S/P/Bld) [Vol rate/Area] 109 mL/min/{1.73_m2} Normal >60 [facility] Comment on above: Result Comment: mL/m in/1.73m2 CKD-EPI Creatinine Equation (2020) Performed By: #### M 100.0, M100.3200, #### [facility] [address] [place], [address] Globulin (S) [Mass/Vol] 3.0 g/dL Normal 2.2-4.2 [facility] Comment on above: Performed By: #### M 100.2200, M100.3200, .1999 #### [facility] [address] [place], [address] Glucose [Mass/Vol] 96 mg/dL Normal 70-99 [facility] Comment on above: Performed By: #### M 100.2200, M100.3200, M100.1999 #### [facility] [address] [place], [address] Potassium [Moles/Vol] 3.9 mmol/L Normal 3.3-5.1 [facility] Comment on above: Performed By: #### M 100.2200, M100.3200, M1 #### [facility] [address] [place], [address] Sodium [Moles/Vol] 139 mmol/L Normal 133-145 [facility] Comment on above: Performed By: #### M 100.2200, M100.3200, #### [facility] [address] [place], [address] T PROT 7.3 g/dL Normal 5.9-8.4 [facility] Comment on above: Performed By: #### M 100.2200, M100.3200, M1 #### [facility] [address] [place], [address] Urea nitrogen [Mass/Vol] 8 mg/dL Normal 4-19 [facility] Comment on above: Performed By: #### M 100.2200, M100.3200, M1 #### [facility] [address] [place], [address] Eosinophil percentageOrdered By: Jeramy Kitchen on 12-22-2024 Eosinophils/100 WBC (Bld) 19.6 % High 0-5 [facility] Erythrocyte distribution wid th ratioOrdered By: Jeramy Kitchen on 12-22-2024 Erythrocyte distribution width (RBC) [Ratio] 12.1 % 11.6-14.6 [facility] Erythrocyte distribution wid th standard deviationOrdered By: Jeramy Kitchen on 12-22-2024 Erythrocyte distribution width (RBC) [Ratio] 42.3 fl 35.1-43.9 [facility] Glomerular filtration rate ( GFR) estimation/1.73 sq m using serum, plasma, or whole bOrdered By: Jeramy Kitchen on 12-22-2024 GFR/1.73 sq M.predicted among non-blacks MDRD (S/P/Bld) [Vol rate/Area] 109 mL/min/{1.73_m2} >60 [facility] Comment on above: mL/min/1.73m2 CKD-EP I Creatinine Equation (2020) Hematocrit Auto (Bld) [Volum e fraction]Ordered By: Jeramy Kitchen on 12-22-2024 Hematocrit (Bld) [Volume fraction] 44.5 % 37-47 [facility] Hemoglobin A1con 12-22-2024 HbA1c (Bld) [Mass fraction] 5.2 % Normal <=5.6 [facility] Comment on above: Result Comment: Norm al < 5.7 % Prediabetic 5.7 - 6.4 % Diabetic >or= 6.5 % Please note range changes. Performed By: #### M 100.2200, M100.3200, M100.2000 #### [facility] Laboratory [facility] [address] [facility] [place], [place], [id number] Hemoglobin A1c percentageOrd ered By: Jeramy Kitchen on 12-22-2024 HbA1c (Bld) [Mass fraction] 5.2 % <5.7 [facility] Comment on above: Normal < 5.7 % Predi abetic 5.7 - 6.4 % Diabetic >or= 6.5 % Please note range changes. Hemoglobin measurementOrdere d By: Jeramy Kitchen on 12-22-2024 Hemoglobin (Bld) [Mass/Vol] 15.0 g/dL 12.0-15.0 [facility] Immature granulocytes/100 WB C Auto (Bld)Ordered By: Jeramy Kitchen on 12-22-2024 Immature granulocytes/100 WBC (Bld) 0.300 % 0.0-0.9 [facility] Comment on above: IG% - Immature Granu locytes (promyelocytes, myelocytes and metamyelocytes) > 1% indicates that a LEFT SHIFT is Present. Internal Medicine Office Vis davonte 12-22-2024 Internal Medicine Office Visit [facility] [address] [place], [place] [address] OFFICE VISIT Date of Service: 12/22/24 MR#: [id number] Acct: [id number] Name: CAYLA WILKERSON Rep #: [id number] : 1980 Provider: Dr. Jeramy montoya MD Age/Sex: 44/F Location: [facility] Status: Signed Intake Vital Signs 06/22/24 14:48 12/14/24 08:00 12/22/24 09:01 Height 5 ft 2 in 5 ft 2 in 5 ft 2 in Weight: 173 lb 8 oz BMI 31.7 BP 132/78 H Blood Pressure Location Lt brachial Position Sitting Respiration 16 Pulse 86 Pulse Source Monitor Temp 96.1 F L Temp Source Temporal Pulse Oximetry (%) 97 Oxygen Delivery Method room air Intake Visit Reasons: 6 M FU Chief Complaint: Follow-up chronic conditions Resident Manager Required: No Accompanied by: Self Is patient in pain?: No Allergies Sulfa (Sulfonamide Antibiotics) Allergy (Mild, Verified 12/22/24 09:00) Other Medications ???Medication ???Instructions ???Recorded ???Confirmed ???Type cholecalciferol (vitamin D3) 50 50 mcg PO DAILY 06/09/23 12/22/24 History mcg (2,000 unit) capsule ferrous sulfate 134 mg (27 mg 134 mg PO DAILY 06/09/23 12/22/24 History iron) tablet mecobalamin (vitamin B12) 5,000 mcg PO DAILY 06/09/23 12/22/24 His tory mcg disintegrating tablet alprazolam 0.25 mg tablet 0.25 mg PO QDAY PRN anxiety #30 12/22/24 Rx tabs losartan 50 mg tablet 50 mg PO DAILY #90 tabs 06/22/24 0 12/22/24 Rx omega 1-hvn-oun-fish oil 300 1 cap PO QDAY 12/05/24 12/22/24 Hi story mg-1,000 mg capsule (Fish Oil) escitalopram oxalate 10 mg tablet 10 mg PO QDAY #30 tabs 12/22/24 0 12/22/24 Rx (Lexapro) levothyroxine 100 mcg tablet 100 mcg PO DAILY #90 tabs 12/22/24 12/22/24 Rx Nurse's Note: having anxiety fasting today for blood work [facility] Medical History Back pain Dermatitis Obesity (BMI 30-39.9) Hypertension Vitamin D deficiency Iron deficiency B12 deficiency Paresthesia 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 Questionnaire PQH-9 BMS Over the last 2 weeks, how often have you been bothered by any of the following problems? 1. Little interest or pleasure in doing things: several days 2. Feeling down, depressed, or hopeless: more than half the days 3. Trouble falling or staying asleep, or sleeping too much: nearly every day 4. Feeling tired or having little energy: several days 5. Poor appetite or overeating: nearly every day 6. Feeling bad about yourself - or that you are a failure or have let yourself and your family down: not at all 7. Trouble concentrating on things, such as reading the newspaper or watching television: several days 8. Moving or speaking so slowly that other people could have noticed? - Or the opposite - being so fidgety or restless that you have been moving around a lot more than usual: several days 9. Thoughts that you would be better off or of hurting yourself in some way: not at all Total score: 12 If you checked off any problems, how difficult have these problems made it for you to do your work, take care of things at home, or get along with other people?: somewhat difficult Source: Developed by Drs. Ed Young, Shahrzad Ohara, Venkata Ortega and colleagues, with an educational terrence from [employer]. AMAURY-7 BMS AMAURY-7 Feeling nervous, anxious, or on edge: 3 = Nearly every day Not being able to stop or control worryin = Nearly every day Worrying too much about different things: 3 = Nearly every day Trouble relaxin = Nearly every day Being so restless that it is hard to sit still: 3 = Nearly every day Becoming easily annoyed or irritable: 1 = Several days Feeling afraid as if something awful might happen: 1 = Several days Total AMAURY-7 score (0-4 normal; 5-9 mild; 10-14 moderate; 15-21 severe): 17 Source: Developed by Drs. Ed Young, Shahrzad Ohara, Venkata Ortega and colleagues, with an educational terrence from [employer]. HPI HPI Chief Complaint: Follow-up chronic conditions D (more content not included)... Normal [facility] LDL calc ser/plasOrdered By: Jeramy Kitchen on 12-22-2024 Cholesterol in LDL [Mass/Vol] 114 mg/dL [facility] Comment on above: Ogqtcsqyrx=182-232 m g/dL & Higher Tazo=663 mg/dL or greater Laboratory - Chemistry and C hemistry - challengeOrdered By: Jeramy Kitchen on 12-22-2024 AST [Catalytic activity/Vol] 18 U/L <32 [facility] Lipid Profileon 12-22-2024 CHOL:HDL 4.56 Normal [facility] Comment on above: Performed By: #### M 100.2200, M100.3200, M100.1999 #### [facility] Laboratory [address] [place], [address] Cholesterol [Mass/Vol] 185 mg/dL Normal <=200 [facility] Comment on above: Result Comment: Chol esterol level, Desirable <200 mg/dL Borderline high cholesterol 200-239 mg/dL High cholesterol >=240 mg/dL Recommendations of the NCEP Adult Treatment Panel for the following risk-cutoff thresholds for the [place] population. Performed By: #### M 100.2200, M100.3200, M1 #### [facility] [address] [place], [address] Cholesterol in HDL [Mass/Vol] 41 mg/dL Normal [facility] Comment on above: Result Comment: [place] onal Cholesterol Education Program (NCEP) guidelines: <40 mg/dL: Low HDL-cholesterol (major risk factor for CHD) >= 60 mg/dL: High HDL-cholesterol (negative risk factor for CHD) HDL-cholesterol is affected by a number of factors, e.g. smoking, exercise, hormones, sex and age. Performed By: #### M 100.0, M100.3200, #### [facility] [address] [place], [address] Cholesterol in LDL [Mass/Vol] 114 mg/dL Normal [facility] Comment on above: Result Comment: Bord raxtrh=661-503 mg/dL Higher Jxjw=431 mg/dL or greater Performed By: #### M 100.2200, M100.3200, M1 #### [facility] [address] [place], [address] Cholesterol in VLDL [Mass/Vol] 30 mg/dL Normal 5-40 [facility] Comment on above: Performed By: #### M 100.2200, M100.3200, M1 #### [facility] [address] [place], [address] Triglyceride [Mass/Vol] 151 mg/dL Normal [facility] Comment on above: Result Comment: The drugs N-Acetylcysteine and Metamizole may falsely depress this assay. Normal range: <150 mg/dL Borderline High: 150-199 mg/dL High: 200-499 mg/dL Very High: >500 mg/dL Performed By: #### M 100.2200, M100.3200, M100.2000 #### [facility] [address] [place], [address] MCV (mean corpuscular volume ) determinationOrdered By: Jeramy Kitchen on 12-22-2024 MCV (RBC) [Entitic vol] 94.1 fL 81-99 [facility] Mean corpuscular hemoglobin (MCH) determinationOrdered By: indiomohawkshmuel Kitchen on 12-22-2024 MCH (RBC) [Entitic mass] 31.7 pg 27.0-32.0 [facility] Mean corpuscular hemoglobin concentration (MCHC) determinationOrdered By: Jeramy Kitchen on 12-22-2024 MCHC (RBC) [Mass/Vol] 33.7 g/dL 32-36 [facility] Mean platelet volume determi nationOrdered By: Jeramy Kitchen on 12-22-2024 Platelet mean volume (Bld) [Entitic vol] 10.6 fL 6.2-12.0 [facility] Monocyte percentageOrdered B y: Jeramy Kitchen on 12-22-2024 Monocytes/100 WBC (Bld) 6.0 % 0-10 [facility] Neutrophil percentageOrdered By: indiomohawkshmuel Kitchen on 12-22-2024 Neutrophils/100 WBC (Bld) 42.6 % Low 47-70 [facility] Nucleated red blood cell per centageOrdered By: Jeramy Kitchen on 12-22-2024 Nucleated RBC/100 WBC (Bld) [Ratio] 0 % 0-5 [facility] Platelet countOrdered By: Sarah Kitchen on 12-22-2024 Platelets (Bld) [#/Vol] 260 10*3/uL 150-450 [facility] Potassium measurement (mass/ volume)Ordered By: Jeramy Kitchen on 12-22-2024 Potassium (Unsp spec) [Mass/Vol] 3.9 mmol/L 3.3-5.1 [facility] RBC Auto (Bld) [#/Vol]Ordere d By: Jeramy Kitchen on 12-22-2024 RBC (Bld) [#/Vol] 4.73 10*6/uL 4.2-5.4 [facility] Screening total cholesterol/ high density lipoprotein (HDL) cholesterol ratioOrdered By: Jeramy Kitchen on 12-22-2024 Cholesterol.total/Chol esterol in HDL [Mass ratio] 4.56 {ratio} [facility] Serum creatinine measurement (mass/volume)Ordered By: Jeramy Kitchen on 12-22-2024 Creatinine [Mass/Vol] 0.69 mg/dL Low 0.70-1.20 [facility] Serum globulin measurementOr dered By: Jeramy Kitchen on 12-22-2024 Globulin (S) [Mass/Vol] 3.0 g/dL 2.2-4.2 [facility] Serum glucose measurement (m ass/volume)Ordered By: Jeramy Kitchen on 12-22-2024 Glucose [Mass/Vol] 96 mg/dL 70-99 [facility] [facility] [place] Serum or plasma alanine vera otransferase (ALT) measurementOrdered By: Jeramy Kitchen on 12-22-2024 ALT [Catalytic activity/Vol] 18 U/L <35 [facility] Serum or plasma albumin buffy urement (mass/volume)Ordered By: Jeramy Kitchen 12-22-2024 Albumin [Mass/Vol] 4.3 g/dL 3.5-5.0 [facility] [place] Serum or plasma albumin/glob ulin mass ratioOrdered By: Jeramy Kitchen on 12-22-2024 Albumin/Globulin [Mass ratio] 1.4 {ratio} 0.9-2.4 [facility] Serum or plasma alkaline tai sphatase measurementOrdered By: Jeramy Kitchen 12-22-2024 ALP [Catalytic activity/Vol] 63 U/L 35-104 [facility] Serum or plasma calcium buffy urement (mass/volume)Ordered By: Jeramy Kitchen on 12-22-2024 Calcium [Mass/Vol] 9.5 mg/dL 7.6-11.0 [facility] [place] Serum or plasma cholesterol in HDL measurement (mass/volume)Ordered By: Jeramy Kitchen on 12-22-2024 Cholesterol in HDL [Mass/Vol] 41 mg/dL >40 [facility] Comment on above: National Cholesterol Education Program (NCEP) guidelines:<40 mg/dL: Low HDL-cholesterol (major risk factor for CHD)>= 60 mg/dL: High HDL-cholesterol (negative risk factor for CHD)HDL-cholesterol is affected by a number of factors, e.g. smoking, exercise, hormones, sex and age. Serum or plasma cholesterol measurement (mass/volume)Ordered By: Jeramy Kitchen on 12-22-2024 Cholesterol [Mass/Vol] 185 mg/dL <201 [facility] Comment on above: Cholesterol level, D esirable <200 mg/dLBorderline high cholesterol 200-239 mg/dLHigh cholesterol >=240 mg/dLRecommendations of the NCEP Adult Treatment Panel for the following risk-cutoff thresholds for the [place] population. Serum or plasma urea nitroge n measurement (mass/volume)Ordered By: Jeramy Kitchen on 12-22-2024 Urea nitrogen [Mass/Vol] 8 mg/dL 4-19 [facility] Sodium levelOrdered By: Tapan Kitchen on 12-22-2024 Sodium [Moles/Vol] 139 mmol/L 133-145 [facility] [place] TSH DL <= 0.005 mIU/L QnOrde red By: Jeramy Kitchen on 12-22-2024 TSH Qn 1.280 uIU/mL 0.300-4.200 [facility] Thyroid Stim Hormone (TSH)on 12-22-2024 TSH 1.280 uIU/mL Normal 0.300-4.200 [facility] Comment on above: Performed By: #### M 100.2200, M100.3200, M100.2000 #### [facility] Laboratory [address] [place], [address] Total proteinOrdered By: Navin Kitchen on 12-22-2024 Protein [Mass/Vol] 7.3 g/dL 5.9-8.4 [facility] [place] Triglycerides measurementOrd ered By: Jeramy Kitchen on 12-22-2024 Triglyceride [Mass/Vol] 151 mg/dL <199 [facility] Comment on above: The drugs N-Acetylcy steine and Metamizole may falsely depress this assay. Normal range: <150 mg/dLBorderline High: 150-199 mg/dLHigh: 200-499 mg/dLVery High: >500 mg/dL Vitamin B12on 12-22-2024 Cobalamin (Vitamin B12) [Mass/Vol] 1060 pg/mL High 180-914 [facility] Comment on above: Performed By: #### M 100.2200, M100.3200, M1 #### [facility] Laboratory [address] [place], [address] Vitamin B12 ser/plasOrdered By: Jeramy Kitchen on 12-22-2024 Cobalamin (Vitamin B12) [Mass/Vol] 1060 pg/mL High 180-914 [facility] White blood cell (WBC) count Ordered By: Jeramy Kitchen on 12-22-2024 WBC (Bld) [#/Vol] 6.2 10*3/uL 4.4-11.0 [facility] [place] Chlamydia/GC BETTYE aptimaon CHLAMY,NUC ACID Negative Normal Negative [facility] Comment on above: Performed By: #### M 100.2200, M100.3200, M1 #### [facility] [address] [place], [address] GC BY NUC ACID Negative Normal Negative [facility] Comment on above: Performed By: #### M 100.2200, M100.3200, M100.1999 #### [facility] [address] [place], [address] HSV 1 AND 2 IgGon 12-08-2024 HSV 1 IgG Reactive Abnormal Non Reactive [facility] Comment on above: Result Comment: Pl ease note reference interval change HSV-1 IgG testing performed using the Arcelia Elecsys HSV-1 IgG assay. Performed By: #### M 100.2200, M100.3200, M100.1999 #### [facility] Laboratory [address] [place], [place], [id number] HSV 2 IgG Non-Reactive Normal Non Reactive [facility] Comment on above: Result Comment: Pl ease note reference interval change Current guidelines and recommendations do not recommend routine screening for HSV-2 in asymptomatic individuals, including those that are . The detection of HSV-2 IgG antibodies in a single sample indicates previous exposure to HSV-2 but does not give information as to the site of HSV infection or the timing of exposure. The predictive value of positive and negative results depends on the population's prevalence and the pretest likelihood of HSV-2. HSV-2 IgG testing performed using the Arcelia Elecsys HSV-2 IgG assay. Performed at: [facility] [id number] Manager Digital: Jose Guzmán MD, Phone: [phone] Performed at: [facility] [id number] Manager Digital: Shikha Nice MD, Phone: [phone] Performed at: [facility] [id number] Manager Digital: Jose Vizcaino PhD, Phone: [phone] Performed By: #### M 100.2200, M100.3200, M100.1999 #### [facility] [address] 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 [facility] Comment on above: Performed By: #### M 100.2200, M100.3200, M100.1999 #### [facility] [address] [place], [place], [address] HCV QT RNA PCR Not detected Normal . [facility] Comment on above: Performed By: #### M 100.2200, M100.3200, M100.1999 #### [facility] [address] [place], [address] TEST INFO: Comment Normal . [facility] Comment on above: Result Comment: The quantitative range of this assay is 15 IU/mL to 100 million IU/mL. Performed By: #### M 100.2200, M100.3200, M100.2000 #### [facility] Laboratory [address] [place], [address] Chlamydia trachomatis rRNA d etection by probe and target amplification methodOrdered By: Patti Riley on 12-05-2024 C. trachomatis rRNA BETTYE+probe Ql (Unsp spec) Negative Negative [facility] HIVon 12-05-2024 HIV Non-Reactive Normal Nonreactive [facility] Comment on above: Result Comment: Non- Reactive Reactive Repeatedly reactive samples must be confirmed according to CDC recommended confirmatory algorithms. The subresults for either HIVAG or AHIV can be used as an aid in the selection of the confirmation algorithm for reactive samples. Send out specimens with Reactive results to [facility] for confirmation. Order the HIV antibody detection and differentiation: [id number] Performed By: #### M 100.2200, M100.3200, M100.1999 #### [facility] [address] [facility] [place], [address] Neisseria gonorrhoeae nuclei c acid detection by amplified probe techniqueOrdered By: Patti Riley on 12-05-2024 N. gonorrhoeae DNA BETTYE+probe Ql (Unsp spec) Negative Negative [facility] No Panel InformationOrdered By: Patti Riley on 12-05-2024 Addendum Document Comment . [facility] Comment on above: The quantitative ran ge of this assay is 15 IU/mL to 100million IU/mL. HIV (1&2) Antibody Non-Reactive Nonreactive [facility] Comment on above: Non-ReactiveReactive Repeatedly reactive samples must be confirmed according to CDC recommended confirmatory algorithms. The subresults for either HIVAG or AHIV can be used as an aid in the selection of the confirmation algorithm for reactive samples.Send out specimens with Reactive results to [facility] for confirmation.Order the HIV antibody detection and differentiation: [id number] POC Trichomonas (Rapid) Negative [facility] [place] [facility] Visit Reporton 12-05-2024 [place] [facility] Visit Report [facility] [address], [address] [place] [address] OFFICE VISIT Date of Service: 12/05/24 MR#: [id number] Acct: [id number] Name: CAYLA WILKERSON Rep #: [id number] : 1980 Provider: DEREK anders Age/Sex: 44/F Location: [facility] Status: Signed Intake Vital Signs 08/23/24 08:08 11/23/24 11:30 12/05/24 14:37 Height 5 ft 2 in 5 ft 2 in 5 ft 2 in Weight: 175 lb 8 oz BMI 32.1 BP 132/80 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) Chief Complaint: Annual Resident Manager Required: No Is patient in pain?: No Allergies Sulfa (Sulfonamide Antibiotics) Allergy (Mild, Verified 12/05/24 14:49) Other Medications ???Medication ???Instructions ???Recorded ???Confirmed ???Type cholecalciferol (vitamin D3) 50 50 mcg PO DAILY 06/09/23 12/05/24 History mcg (2,000 unit) capsule ferrous sulfate 134 mg (27 mg 134 mg PO DAILY 06/09/23 12/05/24 History iron) tablet mecobalamin (vitamin B12) 5,000 mcg PO DAILY 06/09/23 12/05/24 His tory mcg disintegrating tablet alprazolam 0.25 mg tablet 0.25 mg PO QDAY PRN anxiety #30 12/05/24 Rx tabs levothyroxine 100 mcg tablet 100 mcg PO DAILY #90 tabs 06/22/24 12/05/24 Rx losartan 50 mg tablet 50 mg PO DAILY #90 tabs 06/22/24 0 12/05/24 Rx omega 0-bom-xti-fish oil 300 1 cap PO QDAY 12/05/24 12/05/24 Hi story mg-1,000 mg capsule (Fish Oil) Is last menstrual period known: Yes Last Menstrual Period: 11/26/24 Post menopausal: No Patient : No : No Control Method: Souse Vasectomy PFSH Medical History (Updated 12/05/24 @ 14:51 by Patti Riley NP, SERVICE OBSERVER CHIEF-C) Back pain Dermatitis Obesity (BMI 30-39.9) Hypertension Vitamin D deficiency Iron deficiency B12 deficiency Paresthesia 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 History 2 Elective abortions Hx Para 1 Spontaneous abortions Hx # Term Pregnancies Ectopic pregnancies Hx # Pregnancies Multiple births # of living children Past Pregnancies Del. Date Name GA/Weeks Outcome Route Bth Weight Infant Gen Labor Lgth Anesthesia Del Locatn Provider FOB Unknown 2011 [facility] Encounter for routine gynecological examination Details: CAYLA WILKERSON is a 44 year old who presents for annual exam. She and recently reconciled and he had another partner. Last PAP: 2022 History of abnormal PAP: no Last mammogram: 11/2024 History of abnormal mammogram: no Colon cancer screening: encouraged Other preventative health care screenings: Fidelina Female Reproductive History Last Menstrual Period: 11/26/24 Cycle Length: 21-35 Questions: metorrhagia: No, sexually active: Yes, dyspareunia: No and PCB: No ROS Const Constitutional: Denies fatigue, weight gain or weight loss Cardio Card: Denies chest pain Resp Resp: Denies cough or dyspnea on exertion GI GI: Denies abdominal pain, bloating, change in stool character, constipation or vomiting : Reports as per HPI; Denies difficulty voiding, pelvic pain, urinary frequency, urinary incontinence, urinary urgency, vaginal discharge or vaginal pruritus Exam Const General: cooperative, healthy appearing, no acute distress and well developed Orientation: alert, oriented to person and oriented to place [facility] Head: normal to inspection Neck Neck: normal visual inspection Thyroid: thyroid normal Lymphatic: no lymphadenopathy noted Chest Breast inspection: normal inspection of the breasts and normal inspection of the axillae Breast palpation: normal palpation of the breasts, normal palpation of the axillae and no axillary lymphadenopathy Resp Effort Inspection: normal respiratory effort GI Palpation: soft, no masses and nontender Rectal Exam: deferred External Female Exam: normal external appearance and normal appearance of the urethra Urethra: normal appearance of the urethra and normal palpation Speculum Exam - Vagina: normal appearance of the vagina and normal va (more content not included)... Normal [facility] Serum herpes simplex virus 2 antibody assay by immunoassay (units/volume)Ordered By: Patti Riley on 12-05-2024 HSV 2 Ab IA Qn (S) Non-Reactive Non Reactive [facility] Comment on above: Please note refere nce interval changeCurrent guidelines and recommendations do not recommendroutine screening for HSV-2 in asymptomatic individuals,including those that are . The detection of HSV-2IgG antibodies in a single sample indicates previousexposure to HSV-2 but does not give information as to thesite of HSV infection or the timing of exposure. Thepredictive value of positive and negative results dependson the population's prevalence and the pretest likelihoodof HSV-2. HSV-2 IgG testing performed using the RocheElecsys HSV-2 IgG assay.Performed at: [facility] [address] [id number] Director: Jose Guzmán MD, Phone: [phone] at: =[facility] [id number] Director: Shikha Nice MD, Phone: [phone] at: [address] [id number] Director: Jose Vizcaino PhD, Phone: [phone] Serum or plasma hepatitis C virus RNA measurement by probe and target amplification mOrdered By: Patti Riley on 12-05-2024 HCV RNA BETTYE+probe Qn Not detected . [facility] Syphilis Antibodieson 2024 Syphilis Abs Non-Reactive Normal Nonreactive [facility] Comment on above: Performed By: #### L 509.8002, L7000.7000, L7000.1800, L3400.1610, L3890.6006 #### [facility] Laboratory [address] [place], [place], [address] Breast imaging reportOrdered By: Ricardo Huertas on 11-23-2024 Study report [facility] Imaging Services [address] [place] [address] SCRN MAMM (CAD)W/MADISON BILAT MR#: [id number] Acct: [id number] Name: CAYLA WILKERSON Rep #: [id number] : 1980 F 44 From: Wilder Huertas MD PCP: Dr. Jeramy Kitchen MD Status: R EG CLI Study:SCRN MAMM (CAD)W/MADISON BILAT Date of Exa m: 11/23/24 Exam# [id number] Ordering Dr: Patti Riley NP SERVICE OBSERVER CHIEF-C EXAM: SCRN MAMM (CAD)W/MADISON BILAT DATE: 11/23/2024 CLINICAL HISTORY: F, Age 44 y/o , SCREEN FOR BREAST CANCER No family history. BREAST CANCER RISK ASSESSMENT: Not assessed. TECHNIQUE: Bilateral screening digital breast tomosynthesis with 2D and 3D images. Computeraided detection. COMPARISON: Prior exam(s) dated February 20, 2022.. FINDINGS: TISSUE DENSITY: The breast tissue is heterogenously dense, which may obscure small masses. Bilateral Breast Mammographic Findings: No significant masses, calcifications or other abnormalities are identified. No suspicious masses, areas of developing architectural distortion, or suspicious calcifications. There has been no significant interval change. BI/SCRN MAMM (CAD)W/MADISON BILAT IMPRESSION: OVERALL FINAL ASSESSMENT: BIRADS 1 NEGATIVE RECOMMENDATION: Routine annual follow-up in 1 Year A letter with findings and recommendations will be mailed to the patient. Reading Location: [facility] CC: SERVICE OBSERVER CHIEF-C Patti Riley; Dr. Jeramy Kitchen MD ~ [employer] Ii Assembler: Signed [facility] SCRN MAMM (CAD)W/MADISON BILATo n 11-23-2024 SCRN MAMM (CAD)W/MADISON BILAT [facility] Imaging Services [address] [place], [place] [address] SCRN MAMM (CAD)W/MADISON BILAT MR#: [id number] Acct: [id number] Name: CAYLA WILKERSON Rep #: [id number] : 1980 F 44 From: Ricardo lemus MD PCP: Dr. Jeramy Kitchen MD Status: REG CLI Study: SCRN MAMM (CAD)W/MADISON BILAT Date of Exam: 11/03 08/29 Exam# [id number] Ordering Dr: Patti Riley NP SERVICE OBSERVER CHIEF -C EXAM: SCRN MAMM (CAD)W/MADISON BILAT DATE: 11/23/2024 CLINICAL HISTORY: F, Age 44 y/o , SCREEN FOR BREAST CANCER No family history. BREAST CANCER RISK ASSESSMENT: Not assessed. TECHNIQUE: Bilateral screening digital breast tomosynthesis with 2D and 3D images. Computer aided detection. COMPARISON: Prior exam(s) dated February 20, 2022.. FINDINGS: TISSUE DENSITY: The breast tissue is heterogenously dense, which may obscure small masses. Bilateral Breast Mammographic Findings: No significant masses, calcifications or other abnormalities are identified. No suspicious masses, areas of developing architectural distortion, or suspicious calcifications. There has been no significant interval change. BI/SCRN MAMM (CAD)W/MADISON BILAT IMPRESSION: OVERALL FINAL ASSESSMENT: BIRADS 1 NEGATIVE RECOMMENDATION: Routine annual follow-up in 1 Year A letter with findings and recommendations will be mailed to the patient. Reading Location: [facility] CC: DEREK Riley; Dr. Jeramy Kitchen MD [employer] Ii Assembler: Signed Normal [facility] Internal Medicine Office Vis iton 06-22-2024 Internal Medicine Office Visit [facility] [place] [address] [place] [address] OFFICE VISIT Date of Service: 06/22/24 MR#: [id number] Acct: [id number] Name: CAYLA WILKERSON Rep #: [id number] : 1980 Provider: Dr. Jeramy montoya MD Age/Sex: 43/F Location: [facility] Status: Signed Intake Vital Signs 12/22/23 10:27 04/19/24 07:34 06/22/24 14:48 06/22/24 14:48 Height 5 ft 2 in 5 ft 2 in 5 ft 2 in 5 ft 2 in Weight: 182 lb BMI 33.3 BP 118/68 Blood Pressure Location Rt brachial Position Sitting Respiration 14 Pulse 76 Temp 97.7 F L Pulse Oximetry (%) 97 Oxygen Delivery Method room air Intake Visit Reasons: 6 M FU Chief Complaint: 6 month fu Resident Manager Required: No Is patient in pain?: No Allergies Sulfa (Sulfonamide Antibiotics) Allergy (Mild, Verified 06/22/24 14:54) Other Medications ???Medication ???Instructions ???Recorded ???Confirmed ???Type cholecalciferol (vitamin D3) 50 50 mcg PO DAILY 06/09/23 06/22/24 History mcg (2,000 unit) capsule ferrous sulfate 134 mg (27 mg 134 mg PO DAILY 06/09/23 06/22/24 History iron) tablet mecobalamin (vitamin B12) 5,000 mcg PO DAILY 06/09/23 06/22/24 History mcg disintegrating tablet levothyroxine 100 mcg tablet 100 mcg PO DAILY #90 tabs 12/22/23 06/22/24 Rx losartan 50 mg tablet 50 mg PO DAILY #90 tabs 12/22/23 06/22/24 Rx alprazolam 0.25 mg tablet 0.25 mg PO QDAY PRN anxiety #30 06/22/24 06/22/24 Rx tabs Nurse's Note: had blood work done at [facility] this week [facility] Medical History (Updated 06/22/24 @ 15:[address] Jeramy Kitchen MD) Back pain Dermatitis Obesity (BMI 30-39.9) Hypertension Vitamin D deficiency Iron deficiency B12 deficiency Paresthesia 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 HPI HPI Chief Complaint: 6 month fu Details: CAYLA WILKERSON, is a 43 F who presents to the office today for follow-up of her chronic conditions. History of hypertension, blood pressure today at 118/68 mmHg. Taking her medication as prescribed. Also stays active/exercises but admits that she has not exercised as much lately. Currently at BMI of 33.3. Not open to medication but she would like to speak with a dietitian/blender snuff to help guide her on diet/foods. Recently seen by dermatology and recommendation was for an injectable psoriasis medication however she had questions about this. Currently not using anything. Chronic history of anxiety. Was prescribed alprazolam in 2022 by her prior PCP. Still has 1-1/2 left. She states that she only takes this as absolutely needed. She would like a refill. Other chronic conditions are stable. ROS Const Constitutional: No body ache, excessive sweating, fatigue, fever(s), frequent falls, headache(s), snoring, weakness, weight change, sleep problems or change in appetite Eyes Eyes: No blurry vision, change in vision, bulging eyes, floaters, visual disturbances, eye pain or Light sensitivity ENT ENT: No abnormal hearing, ear or mastoid pain, tinnitus, balance problems, nosebleed/epistaxis, nasal congestion, headache(s), neck pain or sore throat Resp Respiratory: No cough, excessive phlegm production, pain on inspiration, shortness of breath, snoring or wheezing Cardio Cardiology: No chest pain at rest, chest pain with exertion, excessive sweating, shortness of breath, dyspnea on exertion, lightheadedness, orthopnea or palpitations Gastro GI: No abdominal pain, change in bowel habits, constipation, cramping, diarrhea, nausea/dyspepsia or vomiting Genitourinary-Female: No burning urination, painful urination, urinary incontinence, urinary frequency, blood in urine, suprapubic fullness, side pain, abnormal periods or pelvic pain Musc Musculoskeletal: No abnormal gait, joint pain, back pain, limited range of motion, loss of height, muscle cramps, neck pain, numbness, stiffness, tingling or Arthritis Skin Skin: No dry skin, redness, lesions, itchy eyes, rash or wounds Neuro Neurology: No abnormal gait, abnormal hearing, abnormal spee (more content not included)... Normal [facility] Basic Metabolic Profile (BMP )on 06-19-2024 BUN/CRE 11.8 RATIO Normal 10-20 [facility] Comment on above: Performed By: #### L 500.2500, L506.1000 #### [facility] Laboratory [address] [place], [address] CA,Total 8.9 mg/dL Normal 8.5-10.1 [facility] Comment on above: Performed By: #### L 500.2500, L506.1000 #### [facility] Laboratory [address] [place], [address] Chloride [Moles/Vol] 111 mmol/L High 98-107 [facility] Comment on above: Performed By: #### L 500.2500, L506.1000 #### [facility] [address] [place], [address] CO2 [Moles/Vol] 17.0 mmol/L Low 21.0-32.0 [facility] Comment on above: Performed By: #### L 500.2500, L506.1000 #### [facility] [address] [place], [place], [address] Creatinine [Mass/Vol] 0.76 mg/dL Normal 0.55-1.02 [facility] Comment on above: Result Comment: The validity of the calculated GFR GFRAA in patients over 70 years has not been determined. Clinical correlation is essential. Performed By: #### L 500.2500, L506.1000 #### [facility] [address] [place], [address] EST GFR - AA 106 mL/min Normal >60 [facility] Comment on above: Result Comment: Afri can Tongan GFR Calc Performed By: #### L 500.2500, L506.1000 #### [facility] [address] [place], [address] GAP 9 Normal 5-15 [facility] Comment on above: Performed By: #### L 500.2500, L506.1000 #### [facility] [address] [place], [address] GFR/1.73 sq M.predicted among non-blacks MDRD (S/P/Bld) [Vol rate/Area] 87 mL/min/{1.73_m2} Normal >60 [facility] Comment on above: Result Comment: Non- GFR Calc Performed By: #### L 500.2500, L506.1000 #### [facility] [address] [place], [address] Glucose [Mass/Vol] 92 mg/dL Normal 74-106 [facility] Comment on above: Performed By: #### L 500.2500, L506.1000 #### [facility] [address] [place], [address] Potassium [Moles/Vol] 4.0 mmol/L Normal 3.5-5.1 [facility] Comment on above: Performed By: #### L 500.2500, L506.1000 #### [facility] [address] [place], [address] Sodium [Moles/Vol] 137 mmol/L Normal 136-145 [facility] Comment on above: Performed By: #### L 500.2500, L506.1000 #### [facility] [address] [place], [address] Urea nitrogen [Mass/Vol] 9 mg/dL Normal 7-18 [facility] Comment on above: Performed By: #### L 500.2500, L506.1000 #### [facility] [address] [place], [address] Vitamin D,25 Hydroxyon 06-19 Vitamin D 25-OH 35.3 ng/mL Normal [facility] Comment on above: Result Comment: Cherise min D 25(OH) Status Range Deficiency <20 ng/mL (50nmol/L) Insufficiency 20 - 30 ng/mL (50 - 75 nmol/L) Sufficiency 30 - 100 ng/mL (75 - 250 nmol/L) Toxicity >100 ng/mL (>250 nmol/L) Performed By: #### L 500.2500, L506.1000 #### [facility] [address] [place], [address] HIV 1 and HIV-2 antibody ass ay with HIV-1 p24 antigen detectionOrdered By: LA MCDOWELL on 08-31-2023 HIV 1+2 Ab+HIV1 p24 Ag IA Ql Non-Reactive Nonreactive [facility] No Panel InformationOrdered By: LA MCDOWELL on 08-31-2023 Hepatitis C Antibody Non-Reactive Nonreactive [facility] Comment on above: Non Reactive: < 0.8 Equivocal: >/= 0.8 to < 1.0 Reactive: >/= 1.0The CDC requires that a reactive/equivocal HCV antibody result be sent out for confirmation. HCV Quant by PCR testing. Serum hepatitis B virus surf martell antibody IgG detectionOrdered By: LA MCDOWELL on 08-31-2023 HBV surface IgG Ql (S) Reactive [facility] Comment on above: Non Reactive: Incons istent with immunity less than <10 mIU/mL Reactive: Consistent with immunity greater than or equal to 10 mIU/mL Basophil percentageOrdered B y: Efabiolashmuel Miryame on 01-27-2023 Chloride [Moles/Vol] 107 mmol/L 98-107 [facility] Glucose [Mass/Vol] 95 mg/dL 74-106 [facility] Potassium [Moles/Vol] 4.1 mmol/L 3.5-5.1 [facility] Sodium [Moles/Vol] 138 mmol/L 136-145 [facility] Laboratory - Chemistry and C hemistry - challengeOrdered By: Yemi Soto on 01-27-2023 Cobalamin (Vitamin B12) [Mass/Vol] 553 pg/mL 211-911 [facility] Free T4 [Mass/Vol] 1.21 ng/dL 0.76-1.46 [facility] Laboratory - Chemistry and C hemistry - challengeOrdered By: Jeramy Kitchen on 01-27-2023 CO2 [Moles/Vol] 26.0 mmol/L 21.0-32.0 [facility] Urea nitrogen/Creatinine [Mass ratio] 11.1 mg/mg 10-20 [facility] No Panel InformationOrdered By: Yemi Soto on 01-27-2023 Thyroid Stimulating Hormone (TSH) 1.48 uIU/mL 0.358-3.74 [facility] Vitamin D 25-Hydroxy 41.8 ng/mL [facility] Comment on above: Vitamin D 25(OH) Sta tus Range Deficiency <20 ng/mL (50nmol/L) Insufficiency 20 - 30 ng/mL (50 - 75 nmol/L) Sufficiency 30 - 100 ng/mL (75 - 250 nmol/L) Toxicity >100 ng/mL (>250 nmol/L) No Panel InformationOrdered By: Jeramy Kitchen on 01-27-2023 Estimated GFR (MDRD) Amer 114 mL/min >60 [facility] Comment on above: GFR Calc Estimated GFR (MDRD) Non-Af Amer 94 mL/min >60 [facility] Comment on above: Non- GFR Calc Serum or plasma calcium buffy urement (mass/volume)Ordered By: Jeramy Kitchen on 01-27-2023 Calcium [Mass/Vol] 9.3 mg/dL 8.5-10.1 [facility] Serum or plasma creatinine m easurement (mass/volume)Ordered By: Jeramy Kitchen on 01-27-2023 Creatinine [Mass/Vol] 0.72 mg/dL 0.55-1.02 [facility] Comment on above: The validity of the calculated GFR & GFRAA in patients over 70 years has not been determined. Clinical correlation is essential. Serum or plasma ferritin randy surement (mass/volume)Ordered By: Yemi Soto on 01-27-2023 Ferritin [Mass/Vol] 55 ng/mL 8-252 [facility] Serum or plasma urea nitroge n measurement (mass/volume)Ordered By: Jeramy Kitchen on 01-27-2023 Urea nitrogen [Mass/Vol] 8 mg/dL 7-18 [facility] Thin prep Papanicolaou smear with manual screeningOrdered By: Jeramy Kitchen on 01-27-2023 Thin prep Papanicolaou smear with manual screening 5 5-15 [facility] Cervical or vagninal specime n microscopic examination by cytology stain (reported asOrdered By: Patti Riley on 01-25-2023 Cytology report Cyto stain Doc (Cvx/Vag) Comment . [facility] Comment on above: The Pap smear is a s creening test designed to aid in thedetection of premalignant and malignant conditions of theuterine cervix. It is not a diagnostic procedure andshould not be used as the sole means of detecting cervicalcancer. Both false-positive and false-negative reports dooccur. Detection in cervical specim en of any of human papilloma virus (HPV) 16, 18, 31, 33,Ordered By: Patti Riley on 01-25-2023 HPV 16+18+31+33+35+39+45+5 1+52+56+58+59+66+68 DNA Probe+sig amp Ql (Cvx) Negative Negative [facility] Comment on above: This nucleic acid am plification test detects fourteen high- risk HPV types (16,18,31,33,35,39,45,51,52,56,58,59,66,68)without differentiation. Laboratory - CytologyOrdered By: Patti Riley on 01-25-2023 Laboratory Aide Cyto stain Nom (Cvx/Vag) [ID] Comment . [facility] Comment on above: Stew Rivas totechnologist (ASCP) Laboratory - Miscellaneous t estsOrdered By: Patti Riley on 01-25-2023 Service comment (Unsp spec) [Interp] TNP [facility] Comment on above: Test not performedTh e Thin Prep(R) Broiler Manager was unable to read this specimen.Therefore a manual review was performed. Service comment (Unsp spec) [Interp] . . [facility] Liquid-based cerv Pap + CT/G C by BETTYE w reflex to high-risk HPV for ASCUSOrdered By: Patti Riley on 01-25-2023 Cytology report Cyto stain.thin prep Doc (Cvx/Vag) Comment . [facility] Comment on above: Criteria not met, HP V Genotype not performed.Performed at: - [address] [id number] Director: Shikha Nice MD, Phone: [phone] at: =[address] [id number] Director: Shikha Nice MD, Phone: [phone] No Panel InformationOrdered By: Patti Riley on 01-25-2023 Pathology report final diagnosis Narrative Comment . [facility] Comment on above: NEGATIVE FOR INTRAEP ITHELIAL LESION OR MALIGNANCY. Laboratory - Chemistry and C hemistry - challengeOrdered By: Susanna Mcmanus on 11-23-2022 Free T4 [Mass/Vol] 1.13 ng/dL 0.76-1.46 [facility] No Panel InformationOrdered By: Susanna Mcmanus on 11-23-2022 Thyroid Stimulating Hormone (TSH) 1.29 uIU/mL 0.358-3.74 [facility] Aldosterone/renin activity r atioOrdered By: Dr. Kitchen on 09-21-2022 Aldosterone/Renin (P) [Ratio] 2.6 0.0-30.0 [facility] Comment on above: Units: ng/dL per ng/ mL/hrPerformed at: [facility] [employer] [id number] Director: Jose Guzmán MD, Phone: [phone] Basophil percentageOrdered B y: Dr. Kitchen on 09-21-2022 Bilirubin [Mass/Vol] 0.40 mg/dL 0.20-1.00 [facility] Comment on above: For patients on eltr ombopag therapy, use of Dimension Leslie TBIL is not recommended. Chloride [Moles/Vol] 105 mmol/L 98-107 [facility] Cholesterol [Mass/Vol] 170 mg/dL <200 [facility] Comment on above: <200 mg/dL Desirable 200-240 mg/dL Borderline >240 mg/dL High Risk Glucose [Mass/Vol] 101 mg/dL 74-106 [facility] Comment on above: Fasting Glucose resu lt from 100 to 125 mg/dL suggests IMPAIRED HOMEOSTASIS per A.D.A. criteria. Potassium [Moles/Vol] 3.8 mmol/L 3.5-5.1 [facility] Protein [Mass/Vol] 7.9 g/dL 6.4-8.2 [facility] Sodium [Moles/Vol] 138 mmol/L 136-145 [facility] Triglyceride [Mass/Vol] 121 mg/dL <199 [facility] Comment on above: The drugs N-Acetylcy steine and Metamizole may falsely depress this assay.Serum Triglycerides Reference Interval Normal <150 mg/dL Borderline high 150 - 199 mg/dL High 200 - 499 mg/dL Very High > or = 500 mg/dL Laboratory - Chemistry and C hemistry - challengeOrdered By: Dr. Kitchen on 09-21-2022 ALP [Catalytic activity/Vol] 61 U/L 45-117 [facility] ALT [Catalytic activity/Vol] 29 U/L 13-56 [facility] CO2 [Moles/Vol] 25.0 mmol/L 21.0-32.0 [facility] Globulin (S) [Mass/Vol] 4.1 g/dL 2.2-4.2 [facility] Urea nitrogen/Creatinine [Mass ratio] 18.3 mg/mg 10-20 [facility] No Panel InformationOrdered By: Dr. Kitchen on 09-21-2022 Estimated GFR (MDRD) Amer 106 mL/min >60 [facility] Comment on above: GFR Calc Estimated GFR (MDRD) Non-Af Amer 88 mL/min >60 [facility] Comment on above: Non- GFR Calc Plasma renin measurement (en zymatic activity/volume)Ordered By: Dr. Kitchen on 09-21-2022 Renin (P) [Catalytic activity/Vol] 0.933 ng/mL/hr 0.167-5.380 [facility] Serum or plasma albumin buffy urement (mass/volume)Ordered By: Dr. Kitchen on 09-21-2022 Albumin [Mass/Vol] 3.8 g/dL 3.2-5.0 [facility] Serum or plasma albumin/glob ulin mass ratioOrdered By: Dr. Kitchen on 09-21-2022 Albumin/Globulin [Mass ratio] 0.9 {ratio} 0.9-2.4 [facility] Serum or plasma calcium buffy urement (mass/volume)Ordered By: Dr. Kitchen on 09-21-2022 Calcium [Mass/Vol] 9.8 mg/dL 8.5-10.1 [facility] Serum or plasma cholesterol in HDL measurement (mass/volume)Ordered By: Dr. Kitchen on 09-21-2022 Cholesterol in HDL [Mass/Vol] 42 mg/dL >40 [facility] Comment on above: The drugs N-Acetylcy steine and Metamizole may falsely depress this assay. Reference Range HDL <40 mg/dL Low HDL Cholesterol HDL >or= 60 mg/dL High HDL Cholesterol Serum or plasma cholesterol in VLDL measurement (mass/volume)Ordered By: Dr. Kitchen on 09-21-2022 Cholesterol in VLDL [Mass/Vol] 24 mg/dL 5-40 [facility] Serum or plasma creatinine m easurement (mass/volume)Ordered By: Dr. Kitchen on 09-21-2022 Creatinine [Mass/Vol] 0.77 mg/dL 0.55-1.02 [facility] Comment on above: The validity of the calculated GFR & GFRAA in patients over 70 years has not been determined. Clinical correlation is essential. Serum or plasma low density lipoprotein (LDL) cholesterol measurement (mass/volume)Ordered By: Dr. Kitchen on 09-21-2022 Cholesterol in LDL [Mass/Vol] 104 mg/dL 0-130 [facility] Serum or plasma urea nitroge n measurement (mass/volume)Ordered By: Dr. Kitchen on 09-21-2022 Urea nitrogen [Mass/Vol] 14 mg/dL 7-18 [facility] Thin prep Papanicolaou smear with manual screeningOrdered By: Dr. Kitchen on 09-21-2022 Thin prep Papanicolaou smear with manual screening 18 U/L 15-37 [facility] Thin prep Papanicolaou smear with manual screening 8 5-15 [facility] Thin prep Papanicolaou smear with manual screening 2.4 ng/dL 0.0-30.0 [facility] Laboratory - Chemistry and C hemistry - challengeOrdered By: Dr. Soto on 09-07-2022 Cobalamin (Vitamin B12) [Mass/Vol] 358 pg/mL 211-911 [facility] Free T4 [Mass/Vol] 1.10 ng/dL 0.76-1.46 [facility] No Panel InformationOrdered By: Dr. Soto on 09-07-2022 Thyroid Stimulating Hormone (TSH) 0.65 uIU/mL 0.358-3.74 [facility] Vitamin D 25-Hydroxy 16.4 ng/mL [facility] Comment on above: Vitamin D 25(OH) Sta tus Range Deficiency <20 ng/mL (50nmol/L) Insufficiency 20 - 30 ng/mL (50 - 75 nmol/L) Sufficiency 30 - 100 ng/mL (75 - 250 nmol/L) Toxicity >100 ng/mL (>250 nmol/L) Serum or plasma ferritin randy surement (mass/volume)Ordered By: Dr. Soto on 09-07-2022 Ferritin [Mass/Vol] 21 ng/mL 8-252 [facility] Laboratory - Chemistry and C hemistry - challengeon 04-13-2022 Magnesium [Mass/Vol] 2.0 mg/dL 1.6-2.6 [facility] Work Phone: Basophil percentageon 2021 Chloride [Moles/Vol] 105 mmol/L 98-107 [facility] Work Phone: Glucose [Mass/Vol] 85 mg/dL 74-106 [facility] Work Phone: Potassium [Moles/Vol] 3.3 mmol/L 3.5-5.1 [facility] Work Phone: Sodium [Moles/Vol] 138 mmol/L 136-145 [facility] Work Phone: Laboratory - Chemistry and C hemistry - challengeon 03-20-2022 CO2 [Moles/Vol] 24.0 mmol/L 21.0-32.0 [facility] Work Phone: Free T4 [Mass/Vol] 0.97 ng/dL 0.76-1.46 [facility] Work Phone: Urea nitrogen/Creatinine [Mass ratio] 15.8 mg/mg 10-20 [facility] Work Phone: No Panel Informationon 03-20 Estimated GFR (MDRD) Amer 98 mL/min >60 [facility] Work Phone: Comment on above: GFR Calc Estimated GFR (MDRD) Non-Af Amer 81 mL/min >60 [facility] Work Phone: Comment on above: Non- GFR Calc Thyroid Stimulating Hormone (TSH) 3.61 uIU/mL 0.358-3.74 [facility] Work Phone: Serum or plasma calcium buffy urement (mass/volume)on 03-20-2022 Calcium [Mass/Vol] 9.2 mg/dL 8.5-10.1 [facility] Work Phone: Serum or plasma creatinine m easurement (mass/volume)on 03-20-2022 Creatinine [Mass/Vol] 0.82 mg/dL 0.55-1.02 [facility] Work Phone: Comment on above: The validity of the calculated GFR & GFRAA in patients over 70 years has not been determined. Clinical correlation is essential. Serum or plasma urea nitroge n measurement (mass/volume)on 03-20-2022 Urea nitrogen [Mass/Vol] 13 mg/dL 7-18 [facility] Work Phone: Thin prep Papanicolaou smear with manual screeningon 03-20-2022 Thin prep Papanicolaou smear with manual screening 9 5-15 [facility] Work Phone: Basophil percentageon 2021 Cholesterol [Mass/Vol] 199 mg/dL <200 [facility] Work Phone: Comment on above: <200 mg/dL Desirable 200-240 mg/dL Borderline >240 mg/dL High Risk Glucose [Mass/Vol] 99 mg/dL 74-106 [facility] Work Phone: Triglyceride [Mass/Vol] 161 mg/dL [facility] Work Phone: Comment on above: The drugs N-Acetylcy steine and Metamizole may falsely depress this assay.Serum Triglycerides Reference Interval Normal <150 mg/dL Borderline high 150 - 199 mg/dL High 200 - 499 mg/dL Very High > or = 500 mg/dL No Panel Informationon 09-24 Thyroid Stimulating Hormone (TSH) 3.84 uIU/mL 0.358-3.74 [facility] Work Phone: Vitamin D 25-Hydroxy 26.8 ng/mL [facility] Work Phone: Comment on above: Vitamin D 25(OH) Sta tus Range Deficiency <20 ng/mL (50nmol/L) Insufficiency 20 - 30 ng/mL (50 - 75 nmol/L) Sufficiency 30 - 100 ng/mL (75 - 250 nmol/L) Toxicity >100 ng/mL (>250 nmol/L) Serum or plasma cholesterol in HDL measurement (mass/volume)on 09-24-2021 Cholesterol in HDL [Mass/Vol] 45 mg/dL [facility] Work Phone: Comment on above: The drugs N-Acetylcy steine and Metamizole may falsely depress this assay. Reference Range HDL <40 mg/dL Low HDL Cholesterol HDL >or= 60 mg/dL High HDL Cholesterol Serum or plasma cholesterol in VLDL measurement (mass/volume)on 09-24-2021 Cholesterol in VLDL [Mass/Vol] 32 mg/dL 5-40 [facility] Work Phone: Serum or plasma low density lipoprotein (LDL) cholesterol measurement (mass/volume)on 09-24-2021 Cholesterol in LDL [Mass/Vol] 122 mg/dL 0-130 [facility] Work Phone: Absolute lymphocyte counton 08-18-2021 Lymphocytes Auto (Unsp spec) [#/Vol] 2.13 10*3/uL 0.83-4.51 [facility] Work Phone: Basophil percentageon 2021 Basophils/100 WBC (Bld) 0.8 % 0-1 [facility] Work Phone: Chloride [Moles/Vol] 106 mmol/L 98-107 [facility] Work Phone: Eosinophils/100 WBC (Bld) 4.9 % 0-5 [facility] Work Phone: Glucose [Mass/Vol] 93 mg/dL 74-106 [facility] Work Phone: Neutrophils (Bld) [#/Vol] 4.1 10*3/uL 2.0-7.7 [facility] Work Phone: Neutrophils/100 WBC (Bld) 58.2 % 47-70 [facility] Work Phone: Potassium [Moles/Vol] 3.4 mmol/L 3.5-5.1 [facility] Work Phone: Sodium [Moles/Vol] 138 mmol/L 136-145 [facility] Work Phone: WBC (Bld) [#/Vol] 7.1 10*3/uL 4.4-11.0 [facility] Work Phone: Blood erythrocytes count (nu mber/volume)on 08-18-2021 RBC (Bld) [#/Vol] 4.79 10*6/uL 4.2-5.4 [facility] Work Phone: Blood hemoglobin measurement (mass/volume)on 08-18-2021 Hemoglobin (Bld) [Mass/Vol] 15.4 g/dL 12.0-15.0 [facility] Work Phone: Blood lymphocytes/100 leukoc yteson 08-18-2021 Lymphocytes/100 WBC (Bld) 30.0 % 19-41 [facility] Work Phone: Blood monocytes/100 leukocyt eson 08-18-2021 Monocytes/100 WBC (Bld) 5.8 % 0-10 [facility] Work Phone: Blood platelet mean volumeon 08-18-2021 Platelet mean volume (Bld) [Entitic vol] 9.8 fL 6.2-12.0 [facility] Work Phone: Determination of erythrocyte mean corpuscular volume (MCV)on 08-18-2021 MCV (RBC) [Entitic vol] 91.9 fL 81-99 [facility] Work Phone: Hematocrit Auto (Bld) [Volum e fraction]on 08-18-2021 Hematocrit (Bld) [Volume fraction] 44.0 % 37-47 [facility] Work Phone: Laboratory - Chemistry and C hemistry - challengeon 08-18-2021 CO2 [Moles/Vol] 23.0 mmol/L 21.0-32.0 [facility] Work Phone: Urea nitrogen/Creatinine [Mass ratio] 17.7 mg/mg 10-20 [facility] Work Phone: Laboratory - Hematology and Cell countson 08-18-2021 Erythrocyte distribution width (RBC) [Entitic vol] 40.6 fL 35.1-43.9 [facility] Work Phone: Erythrocyte distribution width (RBC) [Ratio] 11.9 % 11.6-14.6 [facility] Work Phone: Immature granulocytes/100 WBC (Bld) 0.300 % 0.0-0.9 [facility] Work Phone: Comment on above: IG% - Immature Granu locytes (promyelocytes, myelocytes and metamyelocytes) > 1% indicates that a LEFT SHIFT is Present. MCH (RBC) [Entitic mass] 32.2 pg 27.0-32.0 [facility] Work Phone: Nucleated RBC/100 WBC (Bld) [Ratio] 0 % 0-5 [facility] Work Phone: MCHC Auto (RBC) [Mass/Vol]on 08-18-2021 MCHC (RBC) [Mass/Vol] 35.0 g/dL 32-36 [facility] Work Phone: No Panel Informationon 08-18 Estimated Creatinine Clearance Calc 86.11 ml/min [facility] Work Phone: Estimated GFR (MDRD) Amer 122 mL/min >60 [facility] Work Phone: Comment on above: GFR Calc Estimated GFR (MDRD) Non-Af Amer 101 mL/min >60 [facility] Work Phone: Comment on above: Non- GFR Calc Troponin I High Sensitivity 4 pg/mL 3.0-54.0 [facility] Work Phone: Comment on above: Please Note: New Dominga t Units and Gender Specific Reference Ranges. For more information see Policy Stat Procedure Leslie High Sensitivity Troponin (TNIH) and attachments. Platelets bldon 08-18-2021 Platelets (Bld) [#/Vol] 298 10*3/uL 150-450 [facility] Work Phone: Serum or plasma calcium buffy urement (mass/volume)on 08-18-2021 Calcium [Mass/Vol] 9.4 mg/dL 8.5-10.1 [facility] Work Phone: Serum or plasma creatinine m easurement (mass/volume)on 08-18-2021 Creatinine [Mass/Vol] 0.68 mg/dL 0.55-1.02 [facility] Work Phone: Comment on above: The validity of the calculated GFR & GFRAA in patients over 70 years has not been determined. Clinical correlation is essential. Serum or plasma urea nitroge n measurement (mass/volume)on 08-18-2021 Urea nitrogen [Mass/Vol] 12 mg/dL 7-18 [facility] Work Phone: Thin prep Papanicolaou smear with manual screeningon 08-18-2021 Thin prep Papanicolaou smear with manual screening 9 5-15 [facility] Work Phone: No Panel Informationon 06-30 POC SARS CoV-2 Antigen Negative [facility] Work Phone: CNOVon 07-03-2017 CNOV Office Visit ([facility]) CAYLA DAILEY ([id number]) 1980 FDa Time Provider Tlfzhjotgp19/30/17 11:15 AM WILTON VELIZ [facility] During your visit today, we recorded the following information about you: Temperature Pulse Respiration Blood pressure 98 degrees 68/minute 18/minute 130/78 Weight 83.3 kgWilton Veliz MD 07/03/2017 12:10 PM SignedPatient presents with:dysuria, frequency, and burning with urination: x 4 daysHPI:Symptoms for 4 days.Dysuria: pressure and feeling the need to go after finishing voidFrequency: Not sureHematuria: NoNausea: NoFever or chills: NoBack pain: slightAbdominal pain: YesPrior UTI: YesPersonal history of kidney stones: NoFamily history of kidney stones: NoRecent [place].MEDICATIONS:Curr ent Outpatient Prescriptions:FAMOTIDIN E (PEPCID ORAL) Take by mouth.ondansetron orally disintegrating (ZOFRAN ODT) 4 mg disintegrating tablet Take1 tablet by mouth every 4 hours as needed for Nausea/Vomiting.dicyclo mine (BENTYL) 20 mg tablet Take 1 tablet by mouth four times daily.No current facility-administered medications for this visit.ALLERGIES:ALLERGI ESAllergen Reactions- Sulfa (Sulfonamide * HivesVITALS:BP 130/78 Pulse 68 Temp 36.7 ?C (98 ?F) (Tympanic) Resp 18 Wt 83.3 kg(183 lb 9.6 oz) BMI 33.58 kg/w4HWQYQJOQ EXAM: GEN: NAD HEENT: EOMI, conjunctiva clear, moist mucous membranes HEART: regular rate and rhythm, no murmurs LUNGS: clear to auscultation, no wheezes or crackles, no increased WOB ABDOMEN: Soft, nondistended, no masses, no suprapubic tenderness BACK: No CVA tendernessASSESSMENT/PL AN:1. Dysuria - ICD9: 788.1, ICD10: R30.0- UA positive for Azo orange- UA DIP B/O- URINE CULTUREStart - NITROFURANTOIN MONOHYDRATE ANDamp; MACROCRYSTAL 100 MG ORAL GEOVANY Harveyeferring Provider: SELF [200]Allergies As of Date: 07/03/2017 Noted Allergy ReactionSULFA (SULFONAMIDE ANTIBIOTICS) 06/03/2005 4 - HivesDate Reviewed: 07/03/2017Reviewed by: Светлана Veliz LPN - Fully AssessedReason for Visit: dysuria, frequency, and burning with urination [Other] Cmt: x 4 daysPrimary Visit Diagnosis:Dysuria [R30.0]Order(s):UA DIP B/O [1249669] Order #: [id number] URINE CULTURE [SQURCUL] Order #: [id number] nitrofurantoin monohydrate and macrocrystal (MACROBID) 100 mg capsuleTake 1 capsule by mouth twice daily with meals for 7 days.Disp: 14 capsuleRfl: 0Prescriptions as of 07/03/2017 Sig: PEPCID ORAL Take by mouth. NITROFURANTOIN MONOHYDRATE AND * Take 1 capsule by mouth twice* ONDANSETRON 4 MG DISINTEGRATI* Take 1 tablet by mouth every * DICYCLOMINE 20 MG TABLET Take 1 tablet by mouth four t*Medication notes this encounter ONDANSETRON 4 MG DISINTEGRATING TABLET >> Светлана Veliz LPN 07/03/2017 11:52 AM >> СВЕТЛАНА VELIZ LPN Sat Jul 03, 2017 11:52 AM Not Taking DICYCLOMINE 20 MG TABLET >> Светлана Veliz LPN 07/03/2017 11:52 AM >> СВЕТЛАНА VELIZ LPN Sat Jul 03, 2017 11:52 AM Not TakingProblem List As Of Date 07/03/2017 Noted Resolved Acute cholecystitis [K81.0] INVALID FOR*07/24/2011 Unspecified disorder of skin and subcutaneous t*INVALID FOR*07/24/2011 CONDYLOMA ACUMINATUM [A63.0] INVALID FOR* SEBACEOUS CYST [L72.3] INVALID FOR* Asthma [J45.909] INVALID FOR* SUPRF HIGH RISK NEC [V23.89] [O09.899]INVALID FOR*11/04/2012Prescript ions ordered this encounter Disp Refills Start End NITROFURANTOIN MONOHYDRATE AND MACROCR* 14 c* 0 07/03/2017 07/10/2017 Route: ORAL Sig: Take 1 capsule by mouth twice daily with meals for 7 days. Status:Closed by WILTON VELIZ MD on 07/03/17 [facility] PROGRESSon 07-03-2017 PROGRESS HNO ID: [id number]: Wilton Arriagaervice: (none)Author Type: PhysicianType: Progress NotesFiled: 07/03/2017 12:10 PMNote Text:Patient presents with:dysuria, frequency, and burning with urination: x 4 daysHPI:Symptoms for 4 days.Dysuria: pressure and feeling the need to go after finishing voidFrequency: Not sureHematuria: NoNausea: NoFever or chills: NoBack pain: slightAbdominal pain: YesPrior UTI: YesPersonal history of kidney stones: NoFamily history of kidney stones: NoRecent trip to [place] fiance.MEDICATIONS:[facility] ent Outpatient Prescriptions:FAMOTIDIN E (PEPCID ORAL) Take by mouth.ondansetron orally disintegrating (ZOFRAN ODT) 4 mg disintegrating tabletTake 1 tablet by mouth every 4 hours as needed for Nausea/Vomiting.dicyclo mine (BENTYL) 20 mg tablet Take 1 tablet by mouth four times daily.No current facility-administered medications for this visit.ALLERGIES:ALLERGI ESAllergen Reactions- Sulfa (Sulfonamide * HivesVITALS:BP 130/78 Pulse 68 Temp 36.7 ?C (98 ?F) (Tympanic) Resp 18 Wt 83.3kg (183 lb 9.6 oz) BMI 33.58 kg/q5WIVBYRDB EXAM: GEN: NAD HEENT: EOMI, conjunctiva clear, moist mucous membranes HEART: regular rate and rhythm, no murmurs LUNGS: clear to auscultation, no wheezes or crackles, no increased WOB ABDOMEN: Soft, nondistended, no masses, no suprapubic tenderness BACK: No CVA tendernessASSESSMENT/PL AN:1. Dysuria - ICD9: 788.1, ICD10: R30.0- UA positive for Azo orange- UA DIP B/O- URINE CULTUREStart - NITROFURANTOIN MONOHYDRATE AND MACROCRYSTAL 100 MG ORAL Farrah Veliz MD Normal [facility] Urine Cultureon 07-03-2017 Urine culture, bacteria Sp. Request/Comment: - Specimen received in preservativeCulture Result - 10,000 - <50,000 CFU/ml Escherichia coli --> ABNORMAL ALERTORGANISM: Escherichia coliMETHOD: Minimum inhibitory concentration(Vitek)Ant ibiotic Interp PAUL StatusAmpicillin SUSCEPTIBLE <=2 FGentamicin SUSCEPTIBLE <=1 FTrimeth sulfameth SUSCEPTIBLE <=20 FCefazolin SUSCEPTIBLE <=4 FCLSI breakpoints for therapy of uncomplicated UTI's due to E.coli, K.pneumoniae, and P.mirabilis were applied and may be used to predict the activity of oral agents(cefaclor, cefdinir, cefpodoxime, cefprozil, cefuroxime, cephalexin, loracarbef).Ciprofloxac in SUSCEPTIBLE <=0.25 FNitrofurantoin SUSCEPTIBLE <=16 FCefepime SUSCEPTIBLE <=1 FPiperacillin/Tazobac SUSCEPTIBLE <=4 FAmpicillin Sulbact SUSCEPTIBLE <=2 FCeftriaxone SUSCEPTIBLE <=1 FMeropenem SUSCEPTIBLE <=0.25 FErtapenem SUSCEPTIBLE <=0.5 F Critically abnormal [facility] Comment on above: Performed By: #### U RCUL ####[facility] [address] [place], [place] [phone] CBC and Differentialon 04-06 Abs Baso 0.04 k/uL Normal 0.00-0.10 [facility] Comment on above: Performed By: #### B ETAMM, CMP, LIPA, CBCDIF ####[facility] [address] [place] [address] Abs [place] 0.39 k/uL Normal 0.00-0.86 [facility] Comment on above: Performed By: #### B ETAMM, CMP, LIPA, CBCDIF ####[facility] [address] [place] [address] Abs Neut 3.39 k/uL Normal 1.45-7.50 [facility] Comment on above: Performed By: #### B ETAMM, CMP, LIPA, CBCDIF ####[facility] [address] [place] [address] Basophils/100 WBC Auto (Bld) 0.7 % Normal [facility] Comment on above: Performed By: #### B ETAMM, CMP, LIPA, CBCDIF ####[facility] [address] [place] [address] Eosinophils 0.27 10*3/uL Normal 0.00-0.45 [facility] Comment on above: Performed By: #### B ETAMM, CMP, LIPA, CBCDIF ####[facility] [address] [place] [address] Eosinophils/100 leukocytes 4.8 % Normal [facility] Comment on above: Performed By: #### B ETAMM, CMP, LIPA, CBCDIF ####[facility] [address] [place] [address] Erythrocyte distribution width Auto Ratio (RBC) 12.4 % Normal 11.5-15.0 [facility] Comment on above: Performed By: #### B ETAMM, CMP, LIPA, CBCDIF ####[facility] [address] [place] [address] Erythrocytes (RBC) 4.44 10*6/uL Normal 3.90-5.20 [facility] Comment on above: Performed By: #### B ETAMM, CMP, LIPA, CBCDIF ####[facility] [address] [place] [address] Hematocrit (HCT) 40.9 % Normal 36.0-46.0 [facility] Comment on above: Performed By: #### B ETAMM, CMP, LIPA, CBCDIF ####[facility] [address] [place] [address] Hemoglobin mass conc (Bld) 14.3 g/dL Normal 11.5-15.5 [facility] Comment on above: Performed By: #### B ETAMM, CMP, LIPA, CBCDIF ####[facility] [address] [place] [address] Lymphocytes 1.51 10*3/uL Normal 1.00-4.00 [facility] Comment on above: Performed By: #### B ETAMM, CMP, LIPA, CBCDIF ####[facility] [address] [place] [address] Lymphocytes/100 leukocytes 27.0 % Normal [facility] Comment on above: Performed By: #### B ETAMM, CMP, LIPA, CBCDIF ####[facility] [address] [place] [address] MCH 32.2 pG Normal 26.0-34.0 [facility] Comment on above: Performed By: #### B ETAMM, CMP, LIPA, CBCDIF ####[facility] [address] [place] [address] MCHC mass conc (RBC) 35.0 g/dL Normal 30.5-36.0 [facility] Comment on above: Performed By: #### B ETAMM, CMP, LIPA, CBCDIF ####[facility] [address] [place] [address] MCV 92.1 fL Normal 80.0-100.0 [facility] Comment on above: Performed By: #### B ETAMM, CMP, LIPA, CBCDIF ####[facility] [address] [place] [address] Monocytes/100 leukocytes 7.0 % Normal [facility] Comment on above: Performed By: #### B ETAMM, CMP, LIPA, CBCDIF ####[facility] [address] [place], [place] [id number] Neutrophils/100 WBC Auto (Bld) 60.5 % Normal [facility] Comment on above: Performed By: #### B ETAMM, CMP, LIPA, CBCDIF ####[facility] [address] [place] [address] Platelet mean volume (PMV) 10.7 fL Normal 9.0-12.7 [facility] Comment on above: Performed By: #### B ETAMM, CMP, LIPA, CBCDIF ####[facility] [address] [place] [address] Platelets 215 10*3/uL Normal 150-400 [facility] Comment on above: Performed By: #### B ETAMM, CMP, LIPA, CBCDIF ####[facility] [address] [place] [address] WBC (Leukocytes) 5.60 10*3/uL Normal 3.70-11.00 [facility] Comment on above: Performed By: #### B ETAMM, CMP, LIPA, CBCDIF ####[place] [address] CK, Total and CKMBon 017 CKMB CK MB % not reported with CK <100 U/L. Normal 0.0-4.0 [facility] Comment on above: Performed By: #### C KCKMB ####[facility] [address] [place] [address] Creatine kinase (CK) 78 U/L Normal 30-220 [facility] Comment on above: Performed By: #### C KCKMB ####[place] [address] MB 1.9 ng/mL Normal 0.0-8.8 [facility] Comment on above: Performed By: #### C KCKMB ####[facility] [address] [place] [address] Comp Metabolic Panelon 04-06 Alanine aminotransferase (ALT) 37 U/L Normal 0-45 [facility] Comment on above: Performed By: #### B ETAMM, CMP, LIPA, CBCDIF ####[facility] [address] [place] [address] Albumin 4.3 g/dL Normal 3.5-5.0 [facility] Comment on above: Performed By: #### B ETAMM, CMP, LIPA, CBCDIF ####[facility] [address] [place], [place] [phone] Alkaline phosphatase (ALP) 56 U/L Normal 40-150 [facility] Comment on above: Performed By: #### B ETAMM, CMP, LIPA, CBCDIF ####[facility] [address] [place] [address] Anion gap 15 mmol/L Normal 0-15 [facility] Comment on above: Performed By: #### B ETAMM, CMP, LIPA, CBCDIF ####[facility] [address] [place] [address] Aspartate aminotransferase (AST) 78 U/L High 7-40 [facility] Comment on above: Result Comment: Resu lts may be falsely increased due to interference by hemolysis. Suggest reorder as clinically indicated. Performed By: #### B ETAMM, CMP, LIPA, CBCDIF ####[facility] [address] [place] [address] Bilirubin (total) 0.3 mg/dL Normal 0.0-1.5 [facility] Comment on above: Performed By: #### B ETAMM, CMP, LIPA, CBCDIF ####[facility] [address] [place] [address] Calcium 8.9 mg/dL Normal 8.5-10.5 [facility] Comment on above: Performed By: #### B ETAMM, CMP, LIPA, CBCDIF ####[facility] [address] [place] [address] Chloride 102 mmol/L Normal 98-110 [facility] Comment on above: Performed By: #### B ETAMM, CMP, LIPA, CBCDIF ####[facility] [address] [place] [address] CO2 23 mmol/L Normal 23-32 [facility] Comment on above: Performed By: #### B ETAMM, CMP, LIPA, CBCDIF ####[facility] [address] [place] [address] Creatinine 0.64 mg/dL Low 0.70-1.40 [facility] Comment on above: Performed By: #### B ETAMM, CMP, LIPA, CBCDIF ####[facility] [address] [place] [address] eGFR (non-black) mL/min/{1.73_m2} Normal [facility] Comment on above: Result Comment: eGFR (Estimated GFR) Units of measure: mL/min/1.73 meters squaredeGFR is derived from the reexpressed MDRD Study equation using the following parameters: serum creatinine, age, gender and race. The creatinine assay has been calibrated to be traceable to IDMS.An eGFR <60 mL/min/1.73m2 for >3 months is consistent with chronic kidney disease. Refer to KDOQI guidelines for clinical interpretation.In patients with unstable renal function, e.g. those with acute kidney injury, the eGFR may not accurately reflect actual GFR. Performed By: #### B ETAMM, CMP, LIPA, CBCDIF ####[facility] [address] [place] [address] Glucose mass conc 89 mg/dL Normal 65-100 [facility] Comment on above: Performed By: #### B ETAMM, CMP, LIPA, CBCDIF ####[facility] [address] [place] [address] Potassium molar conc 3.9 mmol/L Normal 3.5-5.0 [facility] Comment on above: Performed By: #### B ETAMM, CMP, LIPA, CBCDIF ####[facility] [address] [place] [address] Protein 7.5 g/dL Normal 6.0-8.4 [facility] Comment on above: Performed By: #### B ETAMM, CMP, LIPA, CBCDIF ####[facility] [address] [place] [address] Sodium 140 mmol/L Normal 132-148 [facility] Comment on above: Performed By: #### B ETAMM, CMP, LIPA, CBCDIF ####[facility] [address] [place] [address] Urea nitrogen 7 mg/dL Low 8-25 [facility] Comment on above: Performed By: #### B ETAMM, CMP, LIPA, CBCDIF ####[facility] [address] [place] [address] ED NOTEon 04-06-2017 ED NOTE HNO ID: [id number]: Ama BartonRn) Kemar Santiago: (none)Author Type: Registered NurseType: ED NotesFiled: 04/06/2017 4:37 PMNote Text: Pt vital signs stable at this time, discharge instructions, medication,teaching/edu cation and follow up care reviewed, no signs or symptoms ordistress noted. Pt verbalized understanding. IV removed. [facility] ED NOTE HNO ID: [id number]: Hannah BartonRn) Kemar Chang: (none)Author Type: Registered NurseType: ED NotesFiled: 04/06/2017 1:38 PMNote Text:Patient presents with c/o upper abd pain under rib area and wraps aroundto her back. Pain occasionally spreads into her chest area. This painstarted about 20 minutes prior to coming in. [facility] ED PROV NOTEon 04-06-2017 ED PROV NOTE HNO ID: [id number]: Christoph Gonzalez) Srinivasa: (none)Author Type: Physician AssistantType: ED Provider NotesFiled: 04/06/2017 3:37 PMNote Text:ED Provider NotePatient Name: Cayla RamirezMRN: [id number] DATE: 04/06/17HistoryPatient presents with:Abdominal Pain: upper quads, wrapping around (started 20 minutes ago)Back PainHPI Comments: 36 year old female with a pmh of depression(resolved),as thma, uti, presents to the ED with a chief complaint of upper abdominalpain x 20 min ago. Patient states the pain started while at work and shedescribes the pain as sharp/ aching pain under her rib area on both sidesthat wraps around to the back and spreads into her chest at times. Thepain was 8 /10 and now it has come down to 6/10. Patient took Tums priorto arrival to the ED. She denies any shortness of breath, cough, fever orchills, urinary symptoms, blood in the urine or stool, constipation orobstipation,. She denies any history of PE or DVT. Denies any legswelling. Denies any history of kidney stones. Besides her gallbladderbeing removed patient only had her tonsils removed as well.History provided by: Patient and medical recordsPAST MEDICAL HISTORYDiagnosis Date- Abnormal glandular Papanicolaou smear of cervix Abn. Pap smear (cervix)- Allergic rhinitis, cause unspecified- Asthma- Depressive disorder, not elsewhere classified resolved- Diarrhea resolved- Unspecified disorder of gallbladder- Unspecified hemorrhoids without mention of complication- Urinary tract infection, site not specifiedPAST SURGICAL HISTORYProcedure Laterality Date- DANDC, DIAG AND/OR THERAPEUTIC 1995 Dilation AND curettage- REMOVAL GALLBLADDER 06/16/05- REMOVAL OF TONSILS,12+ Y/O 02/2007- VAGINOSCOPYFAMILY HISTORYProblem Relation Age of Onset- Colon Cancer Paternal Grandmother- Heart Maternal Grandmother had bypass surgery, and passed shortly after- Arthritis Father- Heart Paternal Grandfather- Breast Cancer Other maternal great auntSocial HistorySocial History Main Topics- Smoking status: Former Smoker Years: 10.00 Quit date: 01/25/2011- Smokeless tobacco: Never Used- Alcohol use Yes Comment: occasionally,NOT WHILE - Drug use: No- Sexual activity: Yes Partners: Male control/ protection: PillALLERGIESAllergen Reactions- Sulfa (Sulfonamide * HivesReview of SystemsConstitutional: Negative for chills and fever.HENT: Negative for congestion and sore throat.Eyes: Negative for photophobia and visual disturbance.Respiratory : Negative for chest tightness, shortness of breath andwheezing.Cardiovascu lar: Negative for chest pain and palpitations.Gastrointe stinal: Positive for abdominal pain. Negative for blood instool, diarrhea, nausea, rectal pain and vomiting.Genitourinary: Negative for dysuria and hematuria.Musculoskelet al: Negative for neck pain and neck stiffness.Skin: Negative for color change.Neurological: Negative for dizziness and headaches.Psychiatric/B ehavioral: Negative for agitation and confusion.Physical ExamBP 167/96 Pulse 86 Temp (Src) 97.6 (Oral) Resp 18 Ht 5' 2 (1.58m) Wt 175 lb (79.4kg) SpO2 100% LMP 04/06/2017 BMI 32.00 kg/(m2).Physical ExamConstitutional: She is oriented to person, place, and time. She appearswell-developed.H ENT:Head: Normocephalic.Eyes: Conjunctivae are normal.Neck: Normal range of motion. Neck supple.Cardiovascular: Normal rate.Pulmonary/Chest: Effort normal. No respiratory distress. She has nowheezes. She has no rales. She exhibits no tenderness.Abdominal: Soft. Bowel sounds are normal. She exhibits no distension andno mass. There is tenderness. There is no rebound and no guarding.Abdomen soft. Bowel sounds active in all 4 quadrants. Tender palpationover the right upper quadrant and left upper quadrant. There is noguarding or rebound tenderness on exam. No mass or hernia. No CVAtenderness.Musculosk eletal: Normal range of motion.Neurological: She is alert and oriented to person, place, and time.Skin: Skin is warm and dry.Psychiatric: She has a normal mood and affect. Her behavior is normal.Diagnostic TestingResults for orders placed or performed during the hospital encounter of04/06/17CBC + DIFFResult Value Ref Range WBC 5.60 3.70 - 11.00 k/uL RBC 4.44 3.90 - 5.20 m/uL Hemoglobin 14.3 11.5 - 15.5 g/dL Hematocrit 40.9 36.0 - 46.0 % MCV 92.1 80.0 - 100.0 fL MCH 32.2 26.0 - 34.0 pG MCHC 35.0 30.5 - 36.0 g/dL RDW-CV 12.4 11.5 - 15.0 % Platelet Count 215 150 - 400 k/uL MPV 10.7 9.0 - 12.7 fL Neut% 60.5 % Abs Neut (ANC) 3.39 1.45 - 7.50 k/uL Lymph% 27.0 % Abs Lymph 1.51 1.00 - 4.00 k/uL Bronx% 7.0 % Abs [place] 0.39 0.00 - 0.86 k/uL Eosin% 4.8 % Abs Eosin 0.27 0.00 - 0.45 k/uL Baso% 0.7 % Abs Baso 0.04 0.00 - 0.10 k/uLCOMP METABOLIC PANELResult Value Ref Range Protein, Total 7.5 6.0 - 8.4 g/dL Albumin 4.3 3.5 - 5.0 g/dL Calcium 8.9 8.5 - 10.5 mg/dL Bilirubin, Total 0.3 0.0 - 1.5 mg/dL Alkaline Phosphatase 56 40 - 150 U/L AST 78 (H) 7 - 40 U/L Glucose 89 65 - 100 mg/dL BUN 7 (L) 8 - 25 mg/dL Creatinine 0.64 (L) 0.70 - 1.40 mg/dL Sodium 140 132 - 148 mmol/L Potassium 3.9 3.5 - 5.0 mmol/L Chloride 102 98 - 110 mmol/L CO2 23 23 - 32 mmol/L Anion Gap 15 0 - 15 mmol/L ALT 37 0 - 45 U/L eGFR- >60 eGFR-All Other Races >60 .LIPASE BLDResult Value Ref Range Lipase 26 12 - 70 U/LHCG QUAL BLDResult Value Ref Range HCG, Qualitative Negative NegativeTROPONIN TResult Value Ref Range Troponin T <0.010 0.000 - 0.029 ng/mLCK TOTAL AND CK-MBResult Value Ref Range CK 78 30 - 220 U/L MB 1.9 0.0 - 8.8 ng/mL CK MB % CK MB % not reported with CK <100 U/L. 0.0 - 4.0 %ProceduresMedical Decision Making / ED CourseED CourseThe medical record is reviewed.Triage note is reviewed and incorporated.The nursing note is reviewed and consistent with patient's history andphysical exam findings. The vital signs are : BP 167/96 Pulse 86 Temp36.4 ?C (97.6 ?F) (Oral) Resp 18 Ht 157.5 cm (5' 2) Wt 79.4 kg (175lb) LMP 04/06/2017 SpO2 100% BMI 32.01 kg/m2ECG directly visualized and independently interpreted by me and attendingphysician showed : NSR with rate of 67. No STEMIMDM:This is a well-appearing female with a pmh of depression who is,afebrile, hemodynamically stable, in no acute distress patient whosesymptoms are controlled in the ED with ivf, zofran . Based on patient'spmh, chief complaint and physical exam findings, differential diagnosesinclude acs vs PE vs acute abdomen vs cholangitis, vs kidney stones, vsuti/pyelo vs electrolyte imbalance vs anxiety vs pneumonia.Labs and imaging studies reveal cbc within normal limits, cmp with AST of78, creatinine of 0.63, and BUN of 7, Trop, ck mb within normal limits,negative hcgBased on patient's physical exam findings, clinical picture, lab resultsand imaging studies that were performed here today in the ED, at thistime, the following differential diagnoses such as PE is less likely dueto unremarkable exam and history, PERC negative, no clinical signs of dvt.The following differential diagnosis such as acs is less likely due tounremarkable ecg and cardiac enzymes.The following differential diagnosissuch as is less likely due to unremarkable hcg . After fluidsand zofran, patient feels better and comfortable going homeThe patient hasremained hemodynamically stable throughout the entire ED visit and iswithout objective evidence for acute process requiring urgent interventionor hospitalization. The patient and/or family had all the tests anddiagnosis explained to them and were given both verbal and writtendischarge instructions. The patient is stable for discharge, and pt isinstructed to follow up with pcp and educated to return to ed if sx worsenor any new symptoms. 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 Upper abdominal pain R10.10(R10.10) Upper abdominal pain (primary encounter diagnosis)Comment: acutePlan: dc see pcp, rest, bentyl, zofran, fluids, see gi, return to ed if sxworsenPlanThe Patient was DISCHARGED: Counseled patient and family regarding labresults AND suspected diagnosis AND need for follow-up. Discharged home withverbal and written instructions. They were instructed to return as neededfor persistent or worsening symptoms or any new concerns.Condition at time of disposition: stableSIGNATURE: Nadege Mims (Liam) Tjwvgzen09/03/17 1537 Normal [facility] Lipaseon 04-06-2017 Lipase 26 U/L Normal 12-70 [facility] Comment on above: Performed By: #### B ETAMM, CMP, LIPA, CBCDIF ####[facility] [id number] [place] [phone] Serum Beta HCG [place] /[place] use ONLYon 04-06-2017 HCG.beta subunit Qn Negative Normal Negative [facility] Comment on above: Result Comment: Fals e positives and false negatives are rare but have been described. Clinical correlation of the findings is recommended. Performed By: #### B ETAMM, CMP, LIPA, CBCDIF ####[facility] [id number] [place] [phone] Troponin Ton 04-06-2017 Troponin T.cardiac mass conc ug/L Normal 0.000-0.029 [facility] Comment on above: Performed By: #### T NT ####[facility] [id number] [place] [phone] Vital Signs Date Time Vital Sign Value Performing Clinician Faci lity 03-29-2025 13:18-0400 Body height 157.[address] Jeramy Kitchen MD Work Phone: [facility] 03-29-2025 13:14-0400 Body mass index (BMI) [Ratio] 31.8 kg/m2 Dr. Jeramy Kitchen MD Work Phone: [facility] 03-29-2025 13:14-0400 Body weight 79.[address] Jeramy Kitchen MD Work Phone: [facility] 03-29-2025 13:14-0400 Diastolic blood pressure 78 mm[Hg] Dr. Jeramy Kitchen MD Work Phone: [facility] 03-29-2025 13:14-0400 Systolic blood pressure 120 mm[Hg] Dr. Jeramy Kitchen MD Work Phone: [facility] 03-23-2025 08:25-0400 Body mass index (BMI) [Ratio] 31.4 kg/m2 Dr. Jeramy Kitchen MD Work Phone: [facility] 03-23-2025 08:25-0400 Body temperature 97.8 [degF] Dr. Jeramy Kitchen MD Work Phone: [facility] 03-23-2025 08:25-0400 Body weight 77.[address] Jeramy Kitchen MD Work Phone: [facility] 03-23-2025 08:25-0400 Diastolic blood pressure 78 mm[Hg] Dr. Jeramy Kitchen MD Work Phone: [facility] 03-23-2025 08:25-0400 Heart rate 88 /min Dr. Jeramy Kitchen MD Work Phone: [facility] 03-23-2025 08:25-0400 Respiratory rate 16 /min Dr. Jeramy Kitchen MD Work Phone: [facility] 03-23-2025 08:25-0400 SaO2% (BldA) [Mass fraction] 98 % Dr. Jeramy Kitchen MD Work Phone: [facility] 03-23-2025 08:25-0400 Systolic blood pressure 128 mm[Hg] Dr. Jeramy Kitchen MD Work Phone: [facility] 03-07-2025 11:29-0400 Body height 157.[address] Jreamy Kitchen MD Work Phone: [facility] 03-07-2025 11:26-0400 Body mass index (BMI) [Ratio] 32.3 kg/m2 Dr. Jeramy Kitchen MD Work Phone: [facility] 03-07-2025 11:26-0400 Body weight 80.[address] Jeramy Kitchen MD Work Phone: [facility] 03-07-2025 11:26-0400 Diastolic blood pressure 84 mm[Hg] Dr. Jeramy Kitchen MD Work Phone: [facility] 03-07-2025 11:26-0400 Systolic blood pressure 138 mm[Hg] Dr. Jeramy Kitchen MD Work Phone: [facility] 12-22-2024 09:01-0400 Body height 157.[address] Jeramy Kitchen MD Work Phone: [facility] 12-22-2024 09:01-0400 Body mass index (BMI) [Ratio] 31.7 kg/m2 Dr. Jeramy Kitchen MD Work Phone: [facility] 12-22-2024 09:01-0400 Body temperature 96.1 [degF] Dr. Jeramy Kitchen MD Work Phone: [facility] 12-22-2024 09:01-0400 Body weight 78.[address] Jeramy Kitchen MD Work Phone: [facility] 12-22-2024 09:01-0400 Diastolic blood pressure 78 mm[Hg] Dr. Jeramy Kitchen MD Work Phone: [facility] 12-22-2024 09:01-0400 Heart rate 86 /min Dr. Jeramy Kitchen MD Work Phone: [facility] 12-22-2024 09:01-0400 Respiratory rate 16 /min Dr. Jeramy Kitchen MD Work Phone: [facility] 12-22-2024 09:01-0400 SaO2% (BldA) [Mass fraction] 97 % Dr. Jeramy Kitchen MD Work Phone: [facility] 12-22-2024 09:01-0400 Systolic blood pressure 132 mm[Hg] Dr. Jeramy Kitchen MD Work Phone: [facility] 12-14-2024 08:00-0400 Body weight 79.[address] Jeramy Kitchen MD Work Phone: [facility] 12-05-2024 14:37-0400 Body height 157.[address] Jeramy Kitchen MD Work Phone: [facility] 12-05-2024 14:37-0400 Body mass index (BMI) [Ratio] 32.1 kg/m2 Dr. Jeramy Kitchen MD Work Phone: [facility] 12-05-2024 14:37-0400 Body weight 79.[address] Jeramy Kitchen MD Work Phone: [facility] 12-05-2024 14:37-0400 Diastolic blood pressure 80 mm[Hg] Dr. Jeramy Kitchen MD Work Phone: [facility] 12-05-2024 14:37-0400 Systolic blood pressure 132 mm[Hg] Dr. Jeramy Kitchen MD Work Phone: [facility] 11-23-2024 11:30-0400 Body height 157.[address] Jeramy Kitchen MD Work Phone: [facility] 11-23-2024 11:30-0400 Body weight 81.[address] Jeramy Kitchen MD Work Phone: [facility] 10-05-2024 09:29-0400 Body weight 83.[address] Jeramy Kitchen MD Work Phone: [facility] 08-23-2024 08:08-0500 Body weight 84.[address] Jeramy Kitchen MD Work Phone: [facility] 06-09-2023 11:20-0500 Body height 157.[address] Jeramy Kitchen Work Phone: [facility] 06-09-2023 11:20-0500 Body mass index (BMI) [Ratio] 33.6 kg/m2 Dr. Jeramy Kitchen Work Phone: [facility] 06-09-2023 11:20-0500 Body temperature 98.9 [degF] Dr. Jeramy Kitcehn Work Phone: [facility] 06-09-2023 11:20-0500 Body weight 83.[address] Jeramy Kitchen Work Phone: [facility] 06-09-2023 11:20-0500 Diastolic blood pressure 80 mm[Hg] Dr. Jeramy Kitchen Work Phone: [facility] 06-09-2023 11:20-0500 Heart rate 89 /min Dr. Jeramy Kitchen Work Phone: [facility] 06-09-2023 11:20-0500 Respiratory rate 16 /min Dr. Jeramy Kitchen Work Phone: [facility] 06-09-2023 11:20-0500 SaO2% (BldA) [Mass fraction] 98 % Dr. Jeramy Kitchen Work Phone: [facility] 06-09-2023 11:20-0500 Systolic blood pressure 118 mm[Hg] Dr. Jeramy Kitchen Work Phone: [facility] 01-27-2023 09:26-0400 Body height 157.[address] Jeramy Kitchen Work Phone: [facility] 01-27-2023 09:26-0400 Body mass index (BMI) [Ratio] 32.8 kg/m2 Dr. Jeramy Kitchen Work Phone: [facility] 01-27-2023 09:26-0400 Body temperature 97.3 [degF] Dr. Jeramy Kitchen Work Phone: [facility] 01-27-2023 09:26-0400 Body weight 81.[address] Jeramy Kitchen Work Phone: [facility] 01-27-2023 09:26-0400 Diastolic blood pressure 100 mm[Hg] Dr. Jeramy Kitchen Work Phone: [facility] 01-27-2023 09:26-0400 Heart rate 74 /min Dr. Jeramy Kitchen Work Phone: [facility] 01-27-2023 09:26-0400 Respiratory rate 18 /min Dr. Jeramy Kitchen Work Phone: [facility] 01-27-2023 09:26-0400 SaO2% (BldA) [Mass fraction] 99 % Dr. Jeramy Kitchen Work Phone: [facility] 01-27-2023 09:26-0400 Systolic blood pressure 136 mm[Hg] Dr. Jeramy Kitchen Work Phone: [facility] 01-25-2023 15:09-0400 Body mass index (BMI) [Ratio] 33 kg/m2 Dr. Jeramy Kitchen Work Phone: [facility] 01-25-2023 15:09-0400 Body weight 82.[address] Jeramy Kitchen Work Phone: [facility] 01-25-2023 15:09-0400 Diastolic blood pressure 76 mm[Hg] Dr. Jeramy Kitchen Work Phone: [facility] 01-25-2023 15:09-0400 Systolic blood pressure 122 mm[Hg] Dr. Jeramy Kitchen Work Phone: [facility] 01-13-2023 14:34-0400 Body mass index (BMI) [Ratio] 33.2 kg/m2 Dr. Jeramy Kitchen Work Phone: [facility] 01-13-2023 14:34-0400 Body temperature 98.6 [degF] Dr. Jeramy Kitchen Work Phone: [facility] 01-13-2023 14:34-0400 Body weight 82.[address] Jeramy Kitchen Work Phone: [facility] 01-13-2023 14:34-0400 Diastolic blood pressure 58 mm[Hg] Dr. Jeramy Kitchen Work Phone: [facility] 01-13-2023 14:34-0400 Heart rate 78 /min Dr. Jeramy Kitchen Work Phone: [facility] 01-13-2023 14:34-0400 Respiratory rate 14 /min Dr. Jeramy Kitchen Work Phone: [facility] 01-13-2023 14:34-0400 SaO2% (BldA) [Mass fraction] 98 % Dr. Jeramy Kitchen Work Phone: [facility] 01-13-2023 14:34-0400 Systolic blood pressure 118 mm[Hg] Dr. Jeramy Kitchen Work Phone: [facility] 10-26-2022 09:41-0400 Body height 175.[address] Jeramy Kitchen Work Phone: [facility] 10-26-2022 09:41-0400 Body mass index (BMI) [Ratio] 27.4 kg/m2 Dr. Jeramy Kitchen Work Phone: [facility] 10-26-2022 09:41-0400 Body temperature 98.8 [degF] Dr. Jeramy Kitchen Work Phone: [facility] 10-26-2022 09:41-0400 Body weight 84.[address] Jeramy Kitchen Work Phone: [facility] 10-26-2022 09:41-0400 Diastolic blood pressure 88 mm[Hg] Dr. Jeramy Kitchen Work Phone: [facility] 10-26-2022 09:41-0400 Heart rate 79 /min Dr. Jeramy Kitchen Work Phone: [facility] 10-26-2022 09:41-0400 Respiratory rate 14 /min Dr. Jeramy Kitchen Work Phone: [facility] 10-26-2022 09:41-0400 SaO2% (BldA) [Mass fraction] 98 % Dr. Jeramy Kitchen Work Phone: [facility] 10-26-2022 09:41-0400 Systolic blood pressure 132 mm[Hg] Dr. Jeramy Kitchen Work Phone: [facility] 09-21-2022 09:19-0400 Body height 157.[address] Jeramy Kitchen Work Phone: [facility] 09-21-2022 09:19-0400 Body mass index (BMI) [Ratio] 33.5 kg/m2 Dr. Jeramy Kitchen Work Phone: [facility] 09-21-2022 09:19-0400 Body temperature 98 [degF] Dr. Jeramy Kitchen Work Phone: [facility] 09-21-2022 09:19-0400 Body weight [address] Jeramy Kitchen Work Phone: [facility] 09-21-2022 09:19-0400 Diastolic blood pressure 98 mm[Hg] Dr. Jeramy Kitchen Work Phone: [facility] 09-21-2022 09:19-0400 Heart rate 73 /min Dr. Jeramy Kitchen Work Phone: [facility] 09-21-2022 09:19-0400 Respiratory rate 12 /min Dr. Jeramy Kitchen Work Phone: [facility] 09-21-2022 09:19-0400 SaO2% (BldA) [Mass fraction] 99 % Dr. Jeramy Kicthen Work Phone: [facility] 09-21-2022 09:19-0400 Systolic blood pressure 156 mm[Hg] Dr. Jeramy Kitchen Work Phone: [facility] 07-02-2022 09:27-0500 Body height 157.[address] Jeramy Kitchen Work Phone: [facility] 07-02-2022 09:27-0500 Body mass index (BMI) [Ratio] 33.6 kg/m2 Dr. Jeramy Kitchen Work Phone: [facility] 07-02-2022 09:27-0500 Body temperature 97.1 [degF] Dr. Jeramy Kitchen Work Phone: [facility] 07-02-2022 09:27-0500 Body weight 83.[address] Jeramy Kitchen Work Phone: [facility] 07-02-2022 09:27-0500 Diastolic blood pressure 84 mm[Hg] Dr. Jeramy Kitchen Work Phone: [facility] 07-02-2022 09:27-0500 Heart rate 100 /min Dr. Jeramy Kitchen Work Phone: [facility] 07-02-2022 09:27-0500 Respiratory rate 20 /min Dr. Jeramy Kitchen Work Phone: [facility] 07-02-2022 09:27-0500 SaO2% (BldA) [Mass fraction] 96 % Dr. Jeramy Kitchne Work Phone: [facility] 07-02-2022 09:27-0500 Systolic blood pressure 139 mm[Hg] Dr. Jeramy Kitchen Work Phone: [facility] 03-19-2022 16:01-0400 Body height 157.[address] Andrew Graff Work Phone: [facility] Work Phone: 03-19-2022 16:01-0400 Body mass index (BMI) [Ratio] 33 kg/m2 Dr. Andrew rGaff Work Phone: [facility] Work Phone: 03-19-2022 16:01-0400 Body temperature 98.6 [degF] Dr. Andrew Graff Work Phone: [facility] Work Phone: 03-19-2022 16:01-0400 Body weight 82.[address] Andrew Graff Work Phone: [facility] Work Phone: 03-19-2022 16:01-0400 Diastolic blood pressure 82 mm[Hg] Dr. Andrew Graff Work Phone: [facility] Work Phone: 03-19-2022 16:01-0400 Heart rate 92 /min Dr. Andrew Graff Work Phone: [facility] Work Phone: 03-19-2022 16:01-0400 Respiratory rate 14 /min Dr. Andrew Graff Work Phone: [facility] Work Phone: 03-19-2022 16:01-0400 SaO2% (BldA) [Mass fraction] 98 % Dr. Andrew Graff Work Phone: [facility] Work Phone: 03-19-2022 16:01-0400 Systolic blood pressure 138 mm[Hg] Dr. Andrew Graff Work Phone: [facility] Work Phone: 01-28-2022 15:34-0400 Body mass index (BMI) [Ratio] 34.2 kg/m2 Dr. Andrew Graff Work Phone: [facility] Work Phone: 01-28-2022 15:34-0400 Body weight 84.[address] Andrew Graff Work Phone: [facility] Work Phone: 01-28-2022 15:34-0400 Diastolic blood pressure 84 mm[Hg] Dr. Andrew Graff Work Phone: [facility] Work Phone: 01-28-2022 15:34-0400 Systolic blood pressure 158 mm[Hg] Dr. Andrew Graff Work Phone: [facility] Work Phone: 09-18-2021 08:20-0400 Body height 157.[address] Andrew Graff Work Phone: [facility] Work Phone: 09-18-2021 08:20-0400 Body mass index (BMI) [Ratio] 33.5 kg/m2 Dr. Andrew Graff Work Phone: [facility] Work Phone: 09-18-2021 08:20-0400 Body weight [address] Andrew Graff Work Phone: [facility] Work Phone: 09-18-2021 08:20-0400 Diastolic blood pressure 70 mm[Hg] Dr. Andrew Graff Work Phone: [facility] Work Phone: 09-18-2021 08:20-0400 Systolic blood pressure 118 mm[Hg] Dr. Andrew Graff Work Phone: [facility] Work Phone: 08-18-2021 15:21-0500 Body temperature 98.9 [degF] Dr. Andrew Graff Work Phone: [facility] Work Phone: 08-18-2021 15:21-0500 Diastolic blood pressure 76 mm[Hg] Dr. Andrew Graff Work Phone: [facility] Work Phone: 08-18-2021 15:21-0500 Heart rate 69 /min Dr. Andrew Graff Work Phone: [facility] Work Phone: 08-18-2021 15:21-0500 Respiratory rate 16 /min Dr. Andrew Graff Work Phone: [facility] Work Phone: 08-18-2021 15:21-0500 SaO2% (BldA) [Mass fraction] 98 % Dr. Andrew Graff Work Phone: [facility] Work Phone: 08-18-2021 15:21-0500 Systolic blood pressure 118 mm[Hg] Dr. Andrew Graff Work Phone: [facility] Work Phone: 08-18-2021 12:26-0500 Body mass index (BMI) [Ratio] 32.9 kg/m2 Dr. Andrew Graff Work Phone: [facility] Work Phone: 08-18-2021 12:26-0500 Body weight 81.[address] Andrew Graff Work Phone: [facility] Work Phone: 06-30-2021 08:48-0500 Body mass index (BMI) [Ratio] 33.6 kg/m2 Dr. Andrew Graff Work Phone: [facility] Work Phone: 06-30-2021 08:48-0500 Body temperature 98.2 [degF] Dr. Andrew Graff Work Phone: [facility] Work Phone: 06-30-2021 08:48-0500 Body weight 83.[address] Andrew Graff Work Phone: [facility] Work Phone: 06-30-2021 08:48-0500 Diastolic blood pressure 60 mm[Hg] Dr. Andrew Graff Work Phone: [facility] Work Phone: 06-30-2021 08:48-0500 Heart rate 96 /min Dr. Andrew Graff Work Phone: [facility] Work Phone: 06-30-2021 08:48-0500 Respiratory rate 14 /min Dr. Andrew Graff Work Phone: [facility] Work Phone: 06-30-2021 08:48-0500 SaO2% (BldA) [Mass fraction] 99 % Dr. Andrew Graff Work Phone: [facility] Work Phone: 06-30-2021 08:48-0500 Systolic blood pressure 120 mm[Hg] Dr. Andrew Graff Work Phone: [facility] Work Phone: Encounters Encounter Date Encounter Type Care Provider Facility Start: 05-15-2025 ambulatory Jeramy Aguayo ty:[facility] Start: 05-14-2025 Encounter for other preprocedural examination Rodriguez Le [facility] Start: 03-29-2025 Patient encounter procedure Patti Riley NP-C -Laboratory Specimen Work Phone: Start: 03-29-2025 End: 03-29-2025 Patient encounter procedure Patti Riley SERVICE OBSERVER CHIEF-C -[facility] Work Phone: Start: 03-29-2025 End: 03-29-[address] Jeramy Kitchen MD Work Phone: -[facility] Start: 03-29-2025 End: 03-29-2025 ambulatory Patti Riley SERVICE OBSERVER CHIEF Facility:[facility] Start: 03-23-2025 End: 03-23-[address] Jeramy Kitchen MD -[facility] Work Phone: Start: 03-23-2025 End: 03-23-[address] Jeramy Kitchen MD Work Phone: -[facility] Start: 03-23-2025 End: 03-23-2025 ambulatory Jeramy Kitchen Facility:[facility] Start: 03-21-2025 Registered Recurring Patti Riley SERVICE OBSERVER CHIEF-C -Physical Therapy Work Phone: Start: 03-21-2025 ambulatory Jeramy Sanchezi ty:[facility] Start: 03-07-2025 End: 03-07-[address] Jeramy Kitchen MD Work Phone: -Laboratory Specimen Start: 03-07-2025 End: 03-07-2025 Patient encounter procedure Patti Riley NP-C -Laboratory Specimen Work Phone: Start: 03-07-2025 End: 03-07-2025 Patient encounter procedure Patti Riley NP-C -[facility] Work Phone: Start: 03-07-2025 End: 03-07-[address] Jeramy Kitchen MD Work Phone: -[facility] Start: 03-07-2025 End: 03-07-2025 ambulatory Jeramy Kitchen Facility:[facility] Start: 01-11-2025 ambulatory Jeramy Sanchezi ty:[facility] Start: 12-22-2024 End: 12-22-[address] Jeramy Kitchen MD Work Phone: [facility] Work Phone: Start: 12-22-2024 End: 12-22-[address] Jeramy Kitchen MD -Laboratory [facility] Start: 12-22-2024 End: 12-22-[address] Jeramy Kitchen MD -[facility] Work Phone: Start: 12-22-2024 End: 12-22-[address] Jeramy Kitchen MD Work Phone: [facility] Work Phone: Start: 12-22-2024 End: 12-22-2024 ambulatory [facility] Facility:[facility] Start: 12-14-2024 End: 01-01-[address] Jeramy Kitchen MD -Nutritional Services Work Phone: Start: 12-14-[address] Carolynn Kitchen MD -Nutritional Services Work Phone: Start: 12-14-2024 End: 01-01-[address] Jeramy Kitchen MD Work Phone: -Nutritional Services Start: 12-05-2024 Encounter for gynecological examination (general) (routine) without abnormal findings Patti Riley [facility] Start: 12-05-2024 End: 12-05-2024 Patient encounter procedure Patti Riley SERVICE OBSERVER CHIEF-C -[facility] Work Phone: Start: 12-05-2024 End: 12-05-2024 Patient encounter status Patti Osvaldo SERVICE OBSERVER CHIEF-[facility] Start: 12-05-2024 End: 12-05-[address] Jeramy Kitchen MD Work Phone: [facility] Work Phone: Start: 12-05-2024 End: 12-05-2024 ambulatory [facility] Facility:[facility] Start: 11-23-2024 End: 12-02-[address] Jeramy Kitchen MD Work Phone: [facility] Work Phone: Start: 11-23-2024 End: 12-02-[address] Jeramy Kitchen MD -Nutritional Services Work Phone: Start: 11-23-[address] Carolynn Kitchen MD -Nutritional Services Work Phone: Start: 11-23-2024 End: 11-23-[address] Jeramy Kitchen MD Work Phone: [facility] Work Phone: Start: 11-23-2024 End: 11-23-2024 Patient encounter procedure Patti REED -Outpatient [facility] Work Phone: Start: 11-23-2024 End: 11-23-2024 ambulatory [facility] Facility:[facility] Start: 10-05-2024 End: 11-01-[address] Jeramy Kitchen MD -Nutritional Services Work Phone: Start: 10-05-2024 End: 11-01-2024 ambulatory [facility] Facility:[facility] Start: 08-23-2024 End: 09-01-[address] Jeramy Kitchen MD -Nutritional Services Work Phone: Start: 08-23-2024 End: 09-01-2024 ambulatory [facility] Facility:[facility] Start: 06-22-2024 End: 06-22-2024 ambulatory [facility] Facility:[facility] Start: 06-19-2024 End: 06-19-2024 ambulatory [facility] Facility:[facility] Start: 08-31-2023 End: 08-31-[address] Jeramy Kitchen Work Phone: [facility] Work Phone: Start: 08-31-2023 End: 08-31-[address] Jeramy Kitchen Work Phone: [facility] Work Phone: Start: 06-09-2023 End: 06-09-[address] Jeramy Kitchen Work Phone: [facility] Work Phone: Start: 01-27-2023 End: 01-27-[address] Jeramy Kitchen Work Phone: [facility] Work Phone: Start: 01-27-2023 End: 01-27-[address] Jeramy Kitchen Work Phone: [facility] Work Phone: Start: 01-25-2023 End: 01-25-[address] Jeramy Kitchen Work Phone: [facility] Work Phone: Start: 01-25-2023 End: 01-25-[address] [facility] Work [facility]: Start: 01-25-2023 End: 01-25-[address] Jeramy Kitchen Work Phone: [facility] Work Phone: Start: 01-13-2023 End: 01-13-[address] Jeramy Kitchen Work Phone: [facility] Work Phone: Start: 11-23-2022 End: 11-23-[address] Jeramy Kitchen Work Phone: [facility] Work Phone: Start: 11-23-2022 End: 11-23-[address] Jeramy Kitchen Work Phone: [facility] [place] Start: 10-26-2022 End: 10-26-[address] Jeramy Kitchen Work Phone: [facility] Start: 09-21-2022 End: 09-21-[address] Jeramy Kitchen Work Phone: [facility] Work Phone: Start: 09-21-2022 End: 09-21-[address] Jeramy Kitchen Work Phone: [facility] Start: 09-07-2022 End: 09-07-[address] Jeramy Kitchen Work Phone: [facility] Work Phone: Start: 09-07-2022 End: 09-07-[address] Jeramy Kitchen Work Phone: [facility] Start: 07-02-2022 End: 07-02-[address] Jeramy Kitchen Work Phone: [facility] Start: 04-13-2022 End: 04-13-[address] Andrew Graff Work Phone: [facility] Work Phone: Start: 04-13-2022 End: 04-13-[address] Andrew Graff Work Phone: [facility] Start: 04-09-2022 End: 04-09-[address] Andrew Graff Work Phone: [facility] Start: 03-20-2022 End: 03-20-[address] Andrew Graff Work Phone: [facility] Work Phone: Start: 03-20-2022 End: 03-20-[address] Andrew Graff Work Phone: [facility] Start: 03-19-2022 End: 03-19-[address] Andrew Graff Work Phone: [facility] Start: 02-20-2022 End: 02-20-[address] Andrew Graff Work Phone: [facility] Start: 01-28-2022 End: 01-28-[address] Andrew Graff Work Phone: [facility] Start: 09-24-2021 End: 09-24-[address] Andrew Graff Work Phone: [facility] Start: 09-18-2021 End: 09-18-[address] Andrew Graff Work Phone: [facility] Start: 08-18-2021 End: 08-18-2021 Emergency department patient visit Dr. Andrew Graff Work Phone: [facility] Department Start: 06-30-2021 End: 06-30-[address] Andrew Graff Work Phone: [facility] Start: 07-03-2017 End: 07-06-2017 Ambulatory [facility] Start: 04-06-2017 End: 04-06-2017 Emergency department patient visit [facility] Procedures Date Procedure Procedure Detail Performing Clinician Start: 03-29-2025 End: 03-29-[address] Jeramy montoya MD Work Phone: Start: 03-29-2025 Gram stain microscopy D carline Kitchen MD Work Phone: Start: 03-29-[address] Carolynn Kitchen MD Work Phone: Start: 03-07-2025 Gram stain microscopy D carline Kitchen MD Work Phone: Start: 03-07-[address] 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 Jeramy Kitchen MD Work Phone: Comment on above: Test not performed Start: 12-05-2024 Serologic test for h erpes simplex Dr. Jeramy Kitchen MD Work Phone: Comment on above: Please note refere nce interval changeHSV-1 IgG testing performed using the [employer] HSV-1IgG assay. Start: 12-05-2024 Serologic test for syphilis Dr. Jeramy Kitchen MD Work Phone: Start: 11-23-2024 Screening mammography Kevin Kitchen MD Work Phone: Start: 04-09-2022 US scan of thyroid Dr. Andrew Graff Work Phone: Start: 02-20-2022 Screening mammography Kevin Graff Work Phone: Start: 02-20-[address] iSerra Graff Work Phone: Start: 02-20-[address] Andrew Graff Work Phone: Start: 08-18-2021 Plain chest X-ray Dr. Sierra Graff Work Phone: Plan of Treatment Date Care Activity Detail Author Start: 03-29-2025 Patient encounter procedure Registered Clinical -Laboratory Specimen Work Phone: Start: 03-29-2025 Gram stain microscopy Gram Stain [facility] Start: 03-29-2025 Source specific culture Genital Culture [facility] Start: 03-29-2025 Urine culture Urine Culture [facility] Start: 03-29-2025 End: 03-29-2025 Patient encounter procedure Pelvic pressure in female -[facility] Work Phone: Start: 12-22-2024 CBC W Auto Differential panel - Blood [facility] Start: 12-22-2024 Cobalamin (Vitamin B12) [Mass/volume] in Serum or Plasma [facility] Start: 12-22-2024 Comprehensive metabolic 2000 panel - Serum or Plasma [facility] Start: 12-22-2024 Hemoglobin A1c/Hemoglobin.total in Blood [facility] Start: 12-22-2024 Lipid 1996 panel - Serum or Plasma [facility] Start: 12-22-2024 Thyroid stimulating hormone measurement [facility] Start: 12-05-2024 Chlamydia deoxyribonucleic acid detection [facility] Start: 12-05-2024 Hepatitis C virus RNA assay [facility] Start: 12-05-2024 Serologic test for syphilis [facility] Start: 12-05-2024 [facility] Start: 09-21-2022 Aldosterone and renin activity panel - Plasma [facility] Alanine aminotransfe rase [Enzymatic activity/volume] in Serum or Plasma [facility] Albumin [Mass/volume ] in Serum or Plasma [facility] Aldosterone [Mass/vo lume] in Serum or Plasma [facility] Alkaline phosphatase [Enzymatic activity/volume] in Serum or Plasma [facility] Anion gap in Serum or Plasma [facility] Bilirubin, total measurement [facility] BUN/Creatinine ratio [facility] Calcium [Mass/volume ] in Serum or Plasma [facility] Carbon dioxide, tota l [Moles/volume] in Central venous blood [facility] CBC W Auto Different ial panel - Blood [facility] Cholesterol [Mass/vo lume] in Serum or Plasma [facility] Cholesterol in HDL [Mass/volume] in Serum or Plasma [facility] Creatinine [Mass/vol ume] in Serum or Plasma [facility] Erythrocyte mean cor puscular volume determination [facility] Glucose [Mass/volume ] in Serum or Plasma [facility] Hematocrit [Volume F raction] of Blood [facility] Hemoglobin [Mass/vol ume] in Blood [facility] Leukocytes [#/volume ] in Blood [facility] Lipid 1995 panel - S andi or Plasma [facility] Low density lipoprot ein cholesterol measurement [facility] Mean corpuscular hem oglobin concentration determination [facility] Mean corpuscular hem oglobin determination [facility] Measurement of Human herpesvirus 2 antibody [facility] Measurement of renal function [facility] Neisseria gonorrhoea e rRNA [Presence] in Unspecified specimen by BETTYE with probe detection [facility] Neutrophil count [facility] Neutrophil percent differential count [facility] Patient Education ED Chest Pain, Noncardiac ED Hypertension, To Be Confirmed [facility] Work Phone: Patient referral [facility] Work Phone: PCR for Hepatitis C [facility] PCR test for Chlamyd ia trachomatis [facility] Platelets [#/volume] in Blood [facility] Potassium measurement [facility] Red blood cell count [facility] Red cell distributio n width determination [facility] Renin [Enzymatic activity/volume] in Plasma [facility] Serologic test for h erpes simplex [facility] Serum chloride measurement [facility] Sodium measurement [facility] Thyroglobulin antibo dy measurement [facility] Work Phone: Thyroid stimulating hormone measurement [facility] Thyroperoxidase Ab [Units/volume] in Serum or Plasma [facility] Work Phone: Total cholesterol:HD L ratio measurement [facility] Total protein measurement [facility] Triglycerides measurement [facility] Urea nitrogen [Mass/ volume] in Serum or Plasma [facility] US Thyroid gland [facility] Work Phone: Vitamin D, 25-hydrox y measurement [facility] VLDL cholesterol measurement [facility] Payers Date Payer Category Payer Self-pay [id number] 2023 Unknown [id number] 2011 Unknown [id number] Unknown [id number] Unknown [id number] Unknown [id number] 2.16.8 [id number] Unknown [id number] 2.16.8 [id number] Unknown [id number] 2.16.8 40.1.132713.3.579.2.462 Unknown [id number] 2.16.8 40.1.597489.3.579.2.462 Unknown [id number] 2.16.8 40.1.106858.3.579.2.462 Unknown [id number] 2.16.8 40.1.726161.3.579.2.462 Unknown [id number] 2.16.8 40.1.911595.3.579.2.462 Unknown [id number] 2.16.8 40.1.010420.3.579.2.462 Unknown [id number] 2.16.8 40.1.138201.3.579.2.462 Unknown [id number] 2.16.8 40.1.114460.3.579.2.462 Unknown [id number] 2.16.8 40.1.481050.3.579.2.462 Unknown [id number] 2.16.8 40.1.941199.3.579.2.462 Unknown [id number] 2.16.8 40.1.852612.3.579.2.462 Unknown [id number] 2.16.8 40.1.081777.3.579.2.462 Unknown [id number] 2.16.8 40.1.586306.3.579.2.462 Unknown [id number] 2.16.8 40.1.457929.3.579.2.462 Unknown [id number] 2.16.8 40.1.344827.3.579.2.462 Unknown [id number] 2.16.8 40.1.697626.3.579.2.462 Unknown [id number] 2.16.8 40.1.964634.3.579.2.462 Unknown [id number] 2.16.8 40.1.765681.3.579.2.462 Social History Date Type Detail Facility [facility] Work Phone: Start: 09-18-2021 End: 06-09-2023 Tobacco smoking status NHIS Unknown if ever smoked [facility] Start: 1980 Sex Assigned At Female W [facility] Start: 06-09-2023 Tobacco smoking stat us NHIS Never smoked tobacco (finding) [facility] Sex Female [facility] Mental Status Date Assessment Result Facility 08-18-2021 Cognitive function Level Of Cons ciousness Awake;Alert;Appropriate;Follow s Commands [facility] Work Phone: Clinical Notes 01-25-2023 to 03-29-2025 Note Date & Type Note Facility 03-29-2025 Progress note [facility] 03-23-2025 Progress note [facility] 12-22-2024 Evaluation note Diagnosis Onset Date Resolution Anxiety and depression chronic Ju 2024 8:45am Hypertension chronic December 22, 2 025 8:45am 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 chronic December 8:45am Obesity (BMI 30-39.9) chronic Dec 8:45am Pelvic pressure in female acute March 07 025 11:24am Anxiety and depression chronic Se ptember 2024 8:08am Hypertension chronic March 232024 8:08am 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 chronic Septembe r 2024 8:08am Obesity (BMI 30-39.9) chronic Sep tember 2024 8:08am Pelvic pressure in female acute March 29, 2025 1:12pm Vaginal burning noneactive March 29, 2025 1:12pm [facility] Work Phone: 1([phone]) 994-336306-03-2025 Evaluation note* Diagnosis Onset Date Resolution Status Admit Date Possible exposure to STD acute December 05, 2024 2:29pm Encounter for routine gynecological examination noneactive December 052024 2:29pm [facility] Work Phone: 1([phone]) 216-226706-03-2025 Evaluation note* Diagnosis Onset Date Resolution Status Admit Date Possible exposure to STD acute December 05, 2024 2:29pm Encounter for routine gynecological examination noneactive December 052024 2:29pm Anxiety and depression chronic Ju 2024 8:45am Hypertension chronic December 22 8:45am 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 chronic December 8:45am Obesity (BMI 30-39.9) chronic Dec 8:45am [facility] Work Phone: 1(866) 363-706306-03-2025 Evaluation note* Diagnosis Onset Date Resolution Status Admit Date Possible exposure to STD deleted December 05, 2024 2:29pm Encounter for routine gynecological examination noneactive December 052024 2:29pm Anxiety and depression chronic Ju 2024 8:45am Hypertension chronic December 22 8:45am 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 chronic December 8:45am Obesity (BMI 30-39.9) chronic Dec 8:45am Pelvic pressure in female acute March 07, 2025 11:24am Anxiety and depression chronic Se ptember 2024 8:08am Hypertension chronic March 232024 8:08am 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 chronic Septembe r 2024 8:08am Obesity (BMI 30-39.9) chronic Sep tember 2024 8:08am Pelvic pressure in female acute March 29, 2025 1:12pm Vaginal burning noneactive March 29, 2025 1:12pm [facility] Work Phone: 1([phone]) 105-591306-03-2025 Progress [facility] [address] [place] [address], [address] [place] [address] OFFICE VISIT Date of Service: 12/05/24 MR#: [id number] Acct: [id number] Name: CAYLA WILKERSON Rep #: [id number] : 1980 Provider: DEREK Riley Age/Sex: 44/F Location: [facility] Status: Signed Intake Vital Signs 08/23/24 08:08 11/23/24 11:30 12/05/24 14:37 Height 5 ft 2 in 5 ft 2 in 5 ft 2 in Weight: 175 lb 8 oz BMI 32.1 BP 132/80 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) Chief Complaint: Annual Resident Manager Required: No Is patient in pain?: No Allergies Sulfa (Sulfonamide Antibiotics) Allergy (Mild, Verified 12/05/24 14:49) Other Medications ?Medication ?Instructions ?Recorded ?Confirmed ?Type cholecalciferol (vitamin D3) 50 50 mcg PO DAILY 12/05/24 History mcg (2,000 unit) capsule ferrous sulfate 134 mg (27 mg 134 mg PO DAILY 06/09/23 12/05/24 History iron) tablet mecobalamin (vitamin B12) 5,000 mcg PO DAILY 06/09/23 12/05/24 History mcg disintegrating tablet alprazolam 0.25 mg tablet 0.25 mg PO QDAY PRN anxiety #30 06/22/24 12/05/24 Rx tabs levothyroxine 100 mcg tablet 100 mcg PO DAILY #90 tabs 06/22/24 12/05/24 Rx losartan 50 mg tablet 50 mg PO DAILY #90 tabs 06/0412/05/24 Rx omega 7-sln-mti-fish oil 300 1 cap PO QDAY 12/05/24 History mg-1,000 mg capsule (Fish Oil) Is last menstrual period known: Yes Last Menstrual Period: 11/26/24 Post menopausal: No Patient : No : No Control Method: Souse Vasectomy [facility] Medical History (Updated 12/05/24 @ 14:51 by Patti Riley SERVICE OBSERVER CHIEF, SERVICE OBSERVER CHIEF-C) Back pain Dermatitis Obesity (BMI 30-39.9) Hypertension Vitamin D deficiency Iron deficiency B12 deficiency Paresthesia 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 History 2 Elective abortions Hx Para 1 Spontaneous abortions Hx # Term Pregnancies Ectopic pregnancies Hx # Pregnancies Multiple births # of living children Past Pregnancies Del. Date Name GA/Weeks Outcome Route Bth Weight Infant Gen Labor Lgth Anesthesia Del Locatn Provider FOB Unknown 2011 [facility] Encounter for routine gynecological examination Details: CAYLA WILKERSON is a 44 year old who presents for annual exam. She and recently reconciled and he had another partner. Last PAP: 2022 History of abnormal PAP: no Last mammogram: 11/2024 History of abnormal mammogram: no Colon cancer screening: encouraged Other preventative health care screenings: Fidelina Female Reproductive History Last Menstrual Period: 11/26/24 Cycle Length: 21-35 Questions: metorrhagia: No, sexually active: Yes, dyspareunia: No and PCB: No ROS Const Constitutional: Denies fatigue, weight gain or weight loss Cardio Card: Denies chest pain Resp Resp: Denies cough or dyspnea on exertion GI GI: Denies abdominal pain, bloating, change in stool character, constipation or vomiting : Reports as per HPI; Denies difficulty voiding, pelvic pain, urinary frequency, urinary incontinence,urinary urgency, vaginal discharge or vaginal pruritus Exam Const General: cooperative, healthy appearing, no acute distress and well developed Orientation: alert, oriented to person and oriented to place [facility] Head: normal to inspection Neck Neck: normal visual inspection Thyroid: thyroid normal Lymphatic: no lymphadenopathy noted Chest Breast inspection: normal inspection of the breasts and normal inspection of theaxillae Breast palpation: normal palpation of the breasts, normal palpation of the axillae and no axillary lymphadenopathy Resp Effort & Inspection: normal respiratory effort GI Palpation: soft, no masses and nontender Rectal Exam: deferred External Female Exam: normal external appearance and normal appearance of the urethra Urethra: normal appearance of the urethra and normal palpation Speculum Exam - Vagina: normal appearance of the vagina and normal vaginal discharge Speculum Exam - Cervix: normal appearance of the cervix Bimanual Exam- Vagina & Uterus: normal bimanual exam, uterine size normal, uterine shape normaland non-tender Bimanual Exam- Adnexa, other: normal adnexae, no masses, normal and non-tender Pelvic Support: normal Neuro General: patient alert and patient oriented x3 Psych Affect: normal affect Coding Level of Care Code Off vis,est,prev 40-64yrs Diagnoses Encounter for gynecological examination without abnormal finding Z01.419 Gynecological examination findings: abnormal findings ABSENT Possible exposure to STD Z20.2 Assessment and Plan Assessment and Plan (1) Encounter for routine gynecological examination: Qualifiers: Gynecological examination findings: abnormal findings ABSENT Qualified Code(s): Z01.419 - Encounterfor gynecological examination (general) (routine) without abnormal findings (2) Possible exposure to STD: Status: Acute Orders: Orders SCRN MAMM (CAD)W/MADISON PIERCEAT 11/23/24 Z12.31 - Encounter for screening mammogramfor malignant neoplasm of breast POC Trichomonas Vaginalis Today Z11.3 - Encounter for screening for infections with a predominantlysexual mode of transmission, Z20.2 - Contact with and (suspected) exposure to infections with a predominantly sexual mode of transmission Chlamydia/GC BETTYE aptima Today Z11.3 - Encounter for screening for infections with a predominantly sexual mode of transmission, Z20.2 - Contact with and (suspected) exposure to infections with a predominantly sexual mode of transmission HSV 1&2 IgG Today Z20.2 - Contact with and (suspected) exposure to infections with a predominantly sexual mode of transmission HIV Today Z20.2 - Contact with and (suspected) exposure to infections with a predominantly sexual mode of transmission Syphilis Antibodies Today Z20.2 - Contact with and (suspected) exposure to infections with a predominantly sexual mode of transmission Hepatitis C,RNA PCR Viral Load Today Z20.2 - Contact with and (suspected) exposure to infections with a predominantly sexual mode of transmission Plan Completed breast and pelvic exam Reviewed diet and exercise Pap 2022 Mammogram recent David trich, GCC and serum STD labs-call positives breast self exam encouraged monthly Contraception sp vasectomy Colonoscopy ref to gen surgery RTO 1 year, prn with problems Patti Riley STRATIGRAPHY TEACHER 12/05/24 1504 s SERVICE OBSERVER CHIEF SERVICE OBSERVER CHIEF-C> Date _ Patti Sommer Signature: Date (if applicable) CC: ~ [facility]06-03-2025 Progress note Author Patti Riley [facility] Note Date/Time December 05, 2024 3:04p [facility] [address], [address] [place] [address] OFFICE VISIT Date of Service: 12/05/24 MR#: [id number] Acct: [id number] Name: CAYLA WILKERSON Rep #: [id number] : 1980 Provider: DEREK Riley Age/Sex: 44/F Location: 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 Complaint: Annual Resident Manager Required: No Is patient in pain?: No Allergies Sulfa (Sulfonamide Antibiotics) Allergy (Mild, Verified 12/05/24 14:49) Other Medications ?Medication ?Instructions ?Recorded ?Confirmed ?Type cholecalciferol (vitamin D3) 50 50 mcg PO DAILY 12/05/24 History mcg (2,000 unit) capsule ferrous sulfate 134 mg (27 mg 134 mg PO DAILY 06/09/23 12/05/24 History iron) tablet mecobalamin (vitamin B12) 5,000 mcg PO DAILY 06/09/23 12/05/24 History mcg disintegrating tablet alprazolam 0.25 mg tablet 0.25 mg PO QDAY PRN anxiety #30 06/22/24 12/05/24 Rx tabs levothyroxine 100 mcg tablet 100 mcg PO DAILY #90 tabs 06/22/24 12/05/24 Rx losartan 50 mg tablet 50 mg PO DAILY #90 tabs 06/0412/05/24 Rx omega 3-cig-dsz-fish oil 300 1 cap PO QDAY 12/05/24 History mg-1,000 mg capsule (Fish Oil) Is last menstrual period known: Yes Last Menstrual Period: 11/26/24 Post menopausal: No Patient : No : No Control Method: Souse Vasectomy [facility] Medical History (Updated 12/05/24 @ 14:51 by Patti Riley SERVICE OBSERVER CHIEF, SERVICE OBSERVER CHIEF-C) Back pain Dermatitis Obesity (BMI 30-39.9) Hypertension Vitamin D deficiency Iron deficiency B12 deficiency Paresthesia 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 History 2 Elective abortions Hx Para 1 Spontaneous abortions Hx # Term Pregnancies Ectopic pregnancies Hx # Pregnancies Multiple births # of living children Past Pregnancies Del. Date Name GA/Weeks Outcome Route Bth Weight Infant Gen Labor Lgth Anesthesia Del Locatn Provider FOB Unknown 2011 [facility] Encounter for routine gynecological examination Details: CAYLA WILKERSON is a 44 year old who presents for annual exam. She and recently reconciled and he had another partner. Last PAP: 2022 History of abnormal PAP: no Last mammogram: 11/2024 History of abnormal mammogram: no Colon cancer screening: encouraged Other preventative health care screenings: Fidelina Female Reproductive History Last Menstrual Period: 11/26/24 Cycle Length: 21-35 Questions: metorrhagia: No, sexually active: Yes, dyspareunia: No and PCB: No ROS Const Constitutional: Denies fatigue, weight gain or weight loss Cardio Card: Denies chest pain Resp Resp: Denies cough or dyspnea on exertion GI GI: Denies abdominal pain, bloating, change in stool character, constipation or vomiting : Reports as per HPI; Denies difficulty voiding, pelvic pain, urinary frequency, urinary incontinence,urinary urgency, vaginal discharge or vaginal pruritus Exam Const General: cooperative, healthy appearing, no acute distress and well developed Orientation: alert, oriented to person and oriented to place [facility] Head: normal to inspection Neck Neck: normal visual inspection Thyroid: thyroid normal Lymphatic: no lymphadenopathy noted Chest Breast inspection: normal inspection of the breasts and normal inspection of theaxillae Breast palpation: normal palpation of the breasts, normal palpation of the axillae and no axillary lymphadenopathy Resp Effort & Inspection: normal respiratory effort GI Palpation: soft, no masses and nontender Rectal Exam: deferred External Female Exam: normal external appearance and normal appearance of the urethra Urethra: normal appearance of the urethra and normal palpation Speculum Exam - Vagina: normal appearance of the vagina and normal vaginal discharge Speculum Exam - Cervix: normal appearance of the cervix Bimanual Exam- Vagina & Uterus: normal bimanual exam, uterine size normal, uterine shape normal and non-tender Bimanual Exam- Adnexa, other: normal adnexae, no masses, normal and non-tender Pelvic Support: normal Neuro General: patient alert and patient oriented x3 Psych Affect: normal affect Coding Level of Care Code Off vis,est,prev 40-64yrs Diagnoses Encounter for gynecological examination without abnormal finding Z01.419 Gynecological examination findings: abnormal findings ABSENT Possible exposure to STD Z20.2 Assessment and Plan Assessment and Plan (1) Encounter for routine gynecological examination: Qualifiers: Gynecological examination findings: abnormal findings ABSENT Qualified Code(s): Z01.419 - Encounter for gynecological examination (general) (routine) without abnormal findings (2) Possible exposure to STD: Status: Acute Orders: Orders SCRN MAMM (CAD)W/MADISON BILAT 11/23/24 Z12.31 - Encounter for screening mammogramfor malignant neoplasm of breast POC Trichomonas Vaginalis Today Z11.3 - Encounter for screening for infections with a predominantly sexual mode of transmission, Z20.2 - Contact with and (suspected) exposure to infections with a predominantly sexual mode of transmission Chlamydia/GC BETTYE aptima Today Z11.3 - Encounter for screening for infections with a predominantly sexual mode of transmission, Z20.2 - Contact with and (suspected) exposure to infections with a predominantly sexual mode of transmission HSV 1&2 IgG Today Z20.2 - Contact with and (suspected) exposure to infections with a predominantly sexual mode of transmission HIV Today Z20.2 - Contact with and (suspected) exposure to infections with a predominantly sexual mode of transmission Syphilis Antibodies Today Z20.2 - Contact with and (suspected) exposure to infections with a predominantly sexual mode of transmission Hepatitis C,RNA PCR Viral Load Today Z20.2 - Contact with and (suspected) exposure to infections with a predominantly sexual mode of transmission Plan Completed breast and pelvic exam Reviewed diet and exercise Pap 2022 Mammogram recent David trich, GCC and serum STD labs-call positives breast self exam encouraged monthly Contraception sp vasectomy Colonoscopy ref to gen surgery RTO 1 year, prn with problems Patti Riley STRATIGRAPHY TEACHER 12/05/24 [id number] <Electronically signed by Patti fontaine NP SERVICE OBSERVER CHIEF-C> Date _ Patti Riley NP SERVICE OBSERVER CHIEF-C Cosigner Signature: Date (if applicable) CC: ~ [facility] Work Phone: [phone] 836-203607-24-2023 NotePap Smear Specimen AdequacyJuly 2022 4:28pmComment.Satisfactory for evaluation. Endocervical and/or squamous metaplasticcells (endocervical component)are present.[facility] A#[id number] Hospital [facility] on above:Satisfactory for evaluation. Endocervical and/or squamous metaplasticcells (endocervical component)are present.01-25-2023 NotePap Smear Specimen AdequacyJuly 2022 4:28pmComment.Satisfactory for evaluation. Endocervical and/or squamous metaplasticcells (endocervical component)are present.[facility] INTER[facility]ACED A#[id number] [facility] CampusCom[facility] on above:Satisfactory for evaluation. Endocervical and/or squamous metaplasticcells (endocervical component)are present.Evaluation noteNo assessment information availableWMercy Health [facility]sburg Hospital Work Phone: evaluation note* Diagnosis Onset Date Resolution Status Menorrhagia with regular cycle acute Abnormal thyroid function test acute Elevated blood pressure reading acute Localized swelling, mass and lump, neck acute Psoriasis chronic [facility] Work Phone: evaluation note* Diagnosis Onset Date Resolution Status Cramp and spasm acute 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 acute Menorrhagia with regular cycle acute Paresthesia acute Thyroid enlargement acute [facility] Work Phone: evaluation note* Diagnosis Onset Date Resolution Status Cramp and spasm acute 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 acute Menorrhagia with regular cycle acute Paresthesia acute Thyroid enlargement acute 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 acute Hypertension chronic Obesity (BMI 30-39.9) chroni c [facility] Work Phone: evaluation note* Diagnosis Onset Date Resolution Status 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 acute Hypertension chronic Obesity (BMI 30-39.9) chroni c Hypertension chronic [facility] Work Phone: evaluation note* Diagnosis Onset Date Resolution Status Hypertension chronic Menorrhagia with regular cycle acute Routine gynecological examination noneactive Dermatitis acute Hypertension chronic 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 chronic [facility] Work Phone: evaluation note* Diagnosis Onset Date Resolution Status Hypertension chronic 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 chronic Vitamin D deficiency [facility] Work Phone: evaluation note* Diagnosis Onset Date Resolution Status Admit Date Possible exposure to STD acute December 05, 2024 2:29pm Encounter for routine gynecological examination noneactive December 052024 2:29pm [facility] Work Phone: Hospital Discharge instructionsAmbulatory Orders* Gastroenterology Location: None Selected [facility] Work Phone: Progress note Author Jeramy Kitchen [facility] Note Date/Time March 23, 2025 8:58am [facility] [address] [place] [address] [place] [address] OFFICE VISIT Date of Service: 03/23/25 MR#: [id number] Acct: [id number] Name: CAYLA WILKERSON Rep #: [id number] : 1980 Provider: Dr. Tapan Kitchen MD Age/Sex: 44/F Location: [facility] Status: Signed Intake Vital Signs 12/22/24 09:01 03/07/25 11:29 03/23/25 08:25 Height 5 ft 2 in 5 ft 2 in 5 ft 2 in Weight: 171 lb 8 oz BMI 31.4 BP 128/78 H Blood Pressure Location Lt brachial Position Sitting Respiration 16 Pulse 88 Pulse Source Monitor Temp 97.8 F Temp Source Temporal Pulse Oximetry (%) 98 Oxygen Delivery Method room air Intake Visit Reasons: 3 M FU Chief Complaint: fu Resident Manager Required: No Accompanied by: Self Is patient in pain?: No Allergies Sulfa (Sulfonamide Antibiotics) Allergy (Mild, Verified 03/23/25 08:21) Other Medications ?Medication ?Instructions ?Recorded ?Confirmed ?Type cholecalciferol (vitamin D3) 50 50 mcg PO DAILY 03/23/25 History mcg (2,000 unit) capsule ferrous sulfate 134 mg (27 mg 134 mg PO DAILY 06/09/23 03/23/25 History iron) tablet mecobalamin (vitamin B12) 5,000 mcg PO DAILY 06/09/23 03/23/25 History mcg disintegrating tablet alprazolam 0.25 mg tablet 0.25 mg PO QDAY PRN anxiety #30 06/22/24 03/23/25 Rx tabs losartan 50 mg tablet 50 mg PO DAILY #90 tabs 06/0403/23/25 Rx omega 5-skb-utc-fish oil 300 1 cap PO QDAY 12/05/24 History mg-1,000 mg capsule (Fish Oil) escitalopram oxalate 10 mg tablet 10 mg PO QDAY #30 ta bs 12/22/24 03/23/25 Rx (Lexapro) levothyroxine 100 mcg tablet 100 mcg PO DAILY #90 tabs 12/22/24 03/23/25 Rx metformin 500 mg tablet,extended 500 mg PO BID #60 tab s 12/22/24 03/23/25 Rx release 24 hr (Glucophage XR) PFSH Medical History Anxiety and depression Back pain Dermatitis Obesity (BMI 30-39.9) Hypertension Vitamin D deficiency Iron deficiency B12 deficiency Paresthesia 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 HPI HPI Chief Complaint: fu Details: CAYLA WILKERSON, is a 44-year-old female presenting for follow-up of her chronic conditions. No acute concerns at this time. At her last visit, she was started on Lexapro due to concerns for anxiety. Alsohistory of depression. She however states that she was hesitant to start it dueto concerns about potential side effects but now concerned and willing to start it because her daughter has been concerned about her emotional health lately. She was also started on metformin to help with weight loss. Again, she states that she was hesitant on starting this during the summer months but plans to resume this shortly. Has been making dietary and lifestyle changes. Currently at a BMI of 31.4. History of hypertension, blood pressure today at 128/78 mmHg. Currently on losartan which she reports compliance with. Also history of hypothyroidism currently on levothyroxine. No heat or cold intolerance or unintentional weight changes. Yet to get her colon cancer screening done, she states that she had a referral but did not hear from them. 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 Bacterial vaginosis. Follows up with dermatology at least yearly. ROS Const Constitutional: No body ache, excessive sweating, fatigue, fever(s), frequent falls, headache(s), snoring, weakness, weight change, sleep problems or change in appetite Eyes Eyes: No blurry vision, change in vision, vision loss, dry eyes, eye pain or Light sensitivity ENT ENT: No abnormal hearing, ear or mastoid pain, tinnitus, nasal congestion, headache(s), neck pain or sore throat Resp Respiratory: No cough, excessive phlegm production, hemoptysis, shortness of breath, snoring or wheezing Cardio Cardiology: No chest pain at rest, chest pain with exertion, excessive sweating,shortness of breath, dyspnea on exertion, lightheadedness, orthopnea or palpitations Gastro GI: No abdominal pain, change in bowel habits, constipation, cramping, diarrhea,nausea/dyspepsia or vomiting Genitourinary-Female: No burning urination, painful urination, urinary incontinence, urinary frequency, blood in urine, abnormal periods or pelvic pain Musc Musculoskeletal: No abnormal gait, joint pain, back pain, limited range of motion, neck pain, numbness, stiffness, tingling or Arthritis Skin Skin: No dry skin, redness, lesions, itchy eyes, rash or wounds Neuro Neurology: No abnormal gait, abnormal hearing, abnormal speech, dizziness, weakness, frequent falls, headache(s), memory loss, numbness or tingling Psych Psychiatric: No anxiety, No change in appetite, No depression, No memory loss and No Thoughts of harming yourself/Others Endo Endocrine: No cold intolerance, excessive sweating, fatigue, flushing, heat intolerance, increased thirst/drinking, increased hunger or weight change Aller/Imm Allergy/Immunologic: No itchy eyes, seasonal allergy symptoms, hives or wheezing Osiel/Lymp Hematologic/Lymphatic: No easy bleeding, easy bruising or enlarged lymph nodes Exam Const General: cooperative, comfortable and no acute distress Orientation: alert, awake and oriented x3 [facility] Head: normal to inspection, normocephalic and atraumatic Ears: hearing grossly normal bilaterally Eyes General: appearance normal, both eyes and all related structures Neck Neck: normal visual inspection, full ROM, no lymphadenopathy and supple Neck mass: No Resp Effort & Inspection: normal respiratory effort and able to speak in complete sentences Auscultation: Bilateral: Clear to Auscultation Cardio Rate: regular rate Rhythm: regular rhythm Heart Sounds: S1 normal and S2 normal GI Palpation: soft (Nontender, no palpable organomegaly.) Neuro General: patient alert, patient awake, patient oriented x3, moves all extremities and CN's II-XI intact bilaterally Extrem General: no clubbing, cyanosis or edema Psych Appearance: grossly normal Mental Status: mental status grossly normal Mood: congruent mood Affect: normal affect Coding Level of Care Code Off vis,est,level 4 Diagnoses Anxiety and depression F41.9; F32.A Obesity (BMI 30-39.9) E66.9 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 E03.8; E06.3 Primary hypertension I10 Hypertension type: primary hypertension Assessment and Plan Assessment and Plan (1) Anxiety and depression: Status: Chronic Plan: Initiate Lexapro, starting at 5 mg daily, to possibly titrate to 10 mg as tolerated and per effect. Monitor mood and anxiety symptoms to assess effectiveness and tolerability. Call with any concerns. (2) Obesity (BMI 30-39.9): Status: Chronic Plan: As above, plans to start metformin, did not start after last visit. Continue lifestyle and dietary modifications. Call with any concerns. (3) 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: Status: Chronic Plan: At this time, no concerns for overall under correction. Continue levothyroxine 100 mcg daily. Stable TSH at last check. (4) Hypertension: Status: Chronic Qualifiers: Hypertension type: primary hypertension Qualified Code(s): I10 - Essential (primary) hypertension Plan: Overall, stable. Blood pressure today at 128/78 mmHg. Continue losartan for blood pressure management. CBC, CMP, lipid profile ordered, will review. This note was generated with eTobb dictation software. It may contain incorrectwords, spelling, and punctuation that were not noted in checking the note beforesigning. Orders: Orders CBC W/Diff, Automated Today I10 - Essential (primary) hypertension Referrals Gastroenterology Z12.11 - Encounter for screening for malignant neoplasm of colon 03/23/25 0902 <Electronically signed by Jeramy nix MD> Date _ Jeramy Kitchen MD Cosigner Signature: Date (if applicable) CC: ~ [facility] Work Phone: Progress note Author Pattibertin Riley [facility] Note Date/Time March 29, 2025 1:30pm [facility] [address], [address] [place] [address] OFFICE VISIT Date of Service: 03/29/25 MR#: [id number] Acct: [id number] Name: CAYLA WILKERSON Rep #: [id number] : 1980 Provider: DEREK Riley Age/Sex: 44/F Location: [facility] Status: Signed Intake Vital Signs 03/23/25 08:25 03/29/25 13:14 03/29/25 13:18 Height 5 ft 2 in 5 ft 2 in 5 ft 2 in Weight: 171 lb 8 oz 174 lb 7 oz BMI 31.4 31.8 BP 128/78 H 120/78 Blood Pressure Location Lt brachial Position Sitting Respiration 16 Pulse 88 Pulse Source Monitor Temp 97.8 F Pulse Oximetry (%) 98 Oxygen Delivery Method room air Intake Visit Reasons: BV *ok per Resident Manager Required: No Is patient in pain?: No Allergies Sulfa (Sulfonamide Antibiotics) Allergy (Mild, Verified 03/29/25 13:14) Other Medications ?Medication ?Instructions ?Recorded ?Confirmed ?Type cholecalciferol (vitamin D3) 50 50 mcg PO DAILY 03/29/25 History mcg (2,000 unit) capsule ferrous sulfate 134 mg (27 mg 134 mg PO DAILY 06/09/23 03/29/25 History iron) tablet mecobalamin (vitamin B12) 5,000 mcg PO DAILY 06/09/23 03/29/25 History mcg disintegrating tablet alprazolam 0.25 mg tablet 0.25 mg PO QDAY PRN anxiety #30 06/22/24 03/29/25 Rx tabs losartan 50 mg tablet 50 mg PO DAILY #90 tabs 06/0403/29/25 Rx omega 9-usv-ccw-fish oil 300 1 cap PO QDAY 12/05/24 History mg-1,000 mg capsule (Fish Oil) escitalopram oxalate 10 mg tablet 10 mg PO QDAY #30 ta bs 12/22/24 03/29/25 Rx (Lexapro) levothyroxine 100 mcg tablet 100 mcg PO DAILY #90 tabs 12/22/24 03/29/25 Rx metformin 500 mg tablet,extended 500 mg PO BID #60 tab s 12/22/24 03/29/25 Rx release 24 hr (Glucophage XR) clindamycin phosphate 2 % vaginal 1 appful vaginal QHS 3 days #40 03/29/25 03/29/25 Rx cream grams Post menopausal: No Patient : No : No [facility] History Colon cancer screening Anxiety and depression Back pain Dermatitis Obesity (BMI 30-39.9) Hypertension Vitamin D deficiency Iron deficiency B12 deficiency Paresthesia 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 HPI BV *ok per MH Details: CAYLA WILKERSON is a 44 year old who presents for treated for BV on 03/07 but did use gel while on menses. Her symptoms improved a little but now again feeling vaginal burning and pressure. History 2 Elective abortions Hx Para 1 Spontaneous abortions Hx # Term Pregnancies Ectopic pregnancies Hx # Pregnancies Multiple births # of living children Past Pregnancies Del. Date Name GA/Weeks Outcome Route Bth Weight Infant Gen Labor Lgth Anesthesia Del Locatn Provider FOB Unknown 2011 [facility] ROS Const Constitutional: Reports system reviewed and no additional complaints, except as documented Eyes Eyes: Reports system reviewed and no additional complaints, except as documented GI GI: Denies abdominal pain or change in bowel habits : Reports as per HPI Exam Const General: cooperative and no acute distress Orientation: oriented x3 General: bladder normal to palpation External Female Exam: normal external appearance and normal appearance of the urethra Urethra: normal appearance of the urethra Speculum Exam - Vagina: normal appearance of the vagina, normal vaginal discharge, no lesions and nontender Speculum Exam - Cervix: normal appearance of the cervix Bimanual Exam- Vagina & Uterus: normal bimanual exam, uterine size normal, bladder normal to palpation, uterine shape normal, uterine mobility normal and non- tender Bimanual Exam- Adnexa, other: normal adnexae, no masses and non-tender Results POC Urinalysis Dip (Clinic) Office Urine Color YELLOW Last Edit by Irma Wahl on 03/29/25 13:31 Office Urine Clarity Clear Last Edit by Irma Wahl on 03/29/25 13:31 Office Urine Glucose Negative Last Edit by Irma Wahl on 03/29/25 13 :31 Office Urine Ketones Negative Last Edit by Irma Wahl on 03/29/25 13 :31 Off Ur Spec [place] 1.020 Last Edit by Irma Wahl on 03/29/25 13:31 Office Urine pH 5.0 Last Edit by Irma Wahl on 03/29/25 13:31 Office Urine Bilirubin Negative Last Edit by Irma Wahl on 03/29/25 13:31 Office Urine Urobilinogen Negative Last Edit by Irma Wahl on 13:31 Office Urine Blood Negative Last Edit by Irma Wahl on 03/29/25 13:3 1 Office Urine Blood Hemolyzed Negative Last Edit by Irma Wahl on 03/29/25 13:31 Office Urine Protein Negative Last Edit by Irma Wahl on 03/29/25 13 :31 Office Urine Nitrate Negative Last Edit by Irma Wahl on 03/29/25 13 :31 Off Ur Leukocytes Positive Last Edit by Irma Wahl on 03/29/25 13:31 Moderate Leukocytes Coding Level of Care Code Off vis,est,level 3 Diagnoses Vaginal burning N94.89 Pelvic pressure in female R10.2 Assessment and Plan Assessment and Plan (1) Vaginal burning: (2) Pelvic pressure in female: Status: Acute Orders: Orders Culture, Genital Comprehensive Today N89.8 - Other specified noninflammatory disorders of vagina POC BV Blue Test Today N89.8 - Other specified noninflammatory disorders of vagina POC Urinalysis Dip (Clinic) Today R10.2 - Pelvic and perineal pain Culture, Urine Today R10.2 - Pelvic and perineal pain Medications: New clindamycin phosphate 2% 1 appful vaginal QHS 40 grams 0RF 3 days Plan DAVID BV and comp vaginal culture-call results UA: + small leuks, send culture Rx clindamycin cream 03/29/25 1331 <Electronically signed by Patti fontaine SERVICE OBSERVER CHIEF SERVICE OBSERVER CHIEF-C> Date _ Patti Riley SERVICE OBSERVER CHIEF SERVICE OBSERVER CHIEF-C Cosigner Signature: Date (if applicable) CC: ~ [facility] Work Phone: Reason for referral (narrative)No reason for referral information availableWMercy Health Perrysburg [facility] Work Phone: Summary Purpose Family History No Family History Records Found Relationship Condition Age at Onset Recorded Date/T seda father Cardiac disease Unknown Advance Directives No Advanced Directives Records Found Advance Directive Response Recorded Date/ Time Living Will No August 18, 2 022 4:25pm Power of Senior Private Client Advisor No August 18, 2021 4:25pm Advance Directive Response Recorded Date/ Time Living Will No August 18, 2 022 3:25pm Power of Senior Private Client Advisor No August 18, 2021 3:25pm Advance Directive Response Recorded Date/ Time Living Will No January 13, 2023 2:34pm Power of Senior Private Client Advisor No January 13 3 2:34pm Advance Directive Response Recorded Date/ Time Living Will No January 13, 2023 1:34pm Power of Senior Private Client Advisor No January 13 3 1:34pm Chief Complaint and Reason for Visit Chief Complaint Sinus infection NECK PAIN Annual (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 EST CARE - NEEDS PPW EORDER Reason for Visit Menorrhagia with reg ular cycle Abnormal thyroid function test Elevated blood pressure reading Localized swelling, mass and lump, neck Psoriasis Chief Complaint possible retained ta mpon, heavy bleeding MENORRHAGIA SERVICE OBSERVER CHIEF. EST CARE - NEEDS PPW EORDER ANTERIOR NECK SWELLING E ORDER Reason for Visit Menorrhagia with reg ular cycle Abnormal thyroid function test Elevated blood pressure reading Localized swelling, mass and lump, neck Psoriasis Chief Complaint Thyroid EORDER Reason for Visit Cramp and spasm 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 Menorrhagia with regular cycle Paresthesia Thyroid enlargement Chief Complaint Thyroid EORDER 6 M FU Reason for Visit Cramp and spasm 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 Menorrhagia with regular cycle Paresthesia Thyroid enlargement 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 Hypertension Obesity (BMI 30-39.9) Chief Complaint EORDER 6 M FU 1 M FU EORDER Reason for Visit Hypothyroidism due t o Jeny's thyroiditis Hypertension Obesity (BMI 30-39.9) Hypertension Chief Complaint 1 M FU EORDER BILATERAL EAR PAIN Annual R/S from 01/19 3 M FU Reason for Visit Hypertension Menorrhagia with regular cycle Routine gynecological examination Dermatitis Hypertension 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 Chief Complaint 3 M FU NEEDLE STICK INJURY Reason for Visit Hypertension 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 Vitamin D deficiency Chief Complaint Admit Date OBESITY August 23, 2024 7:58am OBESITY October 05, 2024 9:22 am screen for breast cancer November 23, 2024 10:21am OBESITY November 23, 2024 11:30 am Chief Complaint Admit Date OBESITY August 23, 2024 7:58am OBESITY October 05, 2024 9:22 am screen for breast cancer November 23, 2024 10:21am OBESITY November 23, 2024 11:30 am Annual (ENVIRONMENT FRIENDLY LANDSCAPE DESIGNER) December 05, 2024 2:29p m Reason for Visit Admit Date Possible exposure to STD December 05, 2024 2:29pm Encounter for routine gynecological exam ination December 05, 2024 2:29pm Chief Complaint Admit Date OBESITY October 05, 2024 9:22 am screen for breast cancer November 23, 2024 10:21am OBESITY November 23, 2024 11:30 am Annual (ENVIRONMENT FRIENDLY LANDSCAPE DESIGNER) December 05, 2024 2:29p m OBESITY December 14, 2024 7:50 am 6 M FU December 22, 2024 8:45 am Reason for Visit Admit Date Possible exposure to STD December 05, 2024 2:29pm Encounter for routine gynecological exam ination December 05, 2024 2:29pm Anxiety and depression December 22, 2024 8 :45am Hypertension December 22, 2024 8:45 am Hypothyroidism due to Jeny's thyroi ditis December 22, 2024 8:45am Obesity (BMI 30-39.9) December 22, 2024 8: 45am Chief Complaint Admit Date screen for breast cancer November 23, 2024 10:21am OBESITY November 23, 2024 11:30 am Annual (ENVIRONMENT FRIENDLY LANDSCAPE DESIGNER) December 05, 2024 2:29p m OBESITY December 14, 2024 7:50 am 6 M FU December 22, 2024 8:45 am vaginal irritatio/pressure March 11:24am Chief Complaint Admit Date Annual (ENVIRONMENT FRIENDLY LANDSCAPE DESIGNER) December 05, 2024 2:29p m OBESITY December 14, 2024 7:50 am 6 M FU December 22, 2024 8:45 am vaginal irritatio/pressure March 11:24am SI RX HERE March 21, 2025 5:09pm 3 M FU March 23, 2025 8:08am BV *ok per MH March 29, 2025 1:12pm Reason for Visit Admit Date Possible exposure to STD December 05, 2024 2:29pm Encounter for routine gynecological exam ination December 05, 2024 2:29pm Anxiety and depression December 22, 2024 8 :45am Hypertension December 22, 2024 8:45 am Hypothyroidism due to Jeny's thyroi ditis December 22, 2024 8:45am Obesity (BMI 30-39.9) December 22, 2024 8: 45am Pelvic pressure in female March 07, 2025 11:24am Anxiety and depression March 23, 8:08am Hypertension March 23, 2025 8:08am Hypothyroidism due to Jeny's thyroi ditis March 23, 2025 8:08am Obesity (BMI 30-39.9) March 23 8:08am Pelvic pressure in female March 1:12pm Vaginal burning March 29, 2025 1:12pm Chief Complaint Admit Date OBESITY December 14, 2024 7:50 am 6 M FU December 22, 2024 8:45 am vaginal irritatio/pressure March 11:24am SI RX HERE March 21, 2025 5:09pm 3 M FU March 23, 2025 8:08am BV *ok per MH March 29, 2025 1:12pm Reason for Visit Admit Date Anxiety and depression December 22, 2024 8 :45am Hypertension December 22, 2024 8:45 am Hypothyroidism due to Jeny's thyroi ditis December 22, 2024 8:45am Obesity (BMI 30-39.9) December 22, 2024 8: 45am Pelvic pressure in female March 07, 2025 11:24am Anxiety and depression March 23, 8:08am Hypertension March 23, 2025 8:08am Hypothyroidism due to Jeny's thyroi ditis March 23, 2025 8:08am Obesity (BMI 30-39.9) March 23 8:08am Pelvic pressure in female March 1:12pm Vaginal burning March 29, 2025 1:12pm Additional Source Comments INFORMATION SOURCE (unrecogn ized section and content) DATE CREATED AUTHOR 12/28/2017 [facility] DATE CREATED AUTHOR AUTHOR'S ORGANIZ ATION 12/29/2017 [facility] DATE CREATED AUTHOR AUTHOR'S ORGANIZ ATION 05/14/2025 [facility] Goals (unrecognized section and content) Goals may be documented in a n alternate sectionGoals may be documented in an alternate sectionGoals may be documented in an alternate sectionGoals may be documented in an alternate sectionGoals may be documented in an alternate sectionGoals may be documented in an alternate sectionGoals may be documented in an alternate sectionGoals may be documented in an alternate sectionGoals may be documented in an alternate sectionGoals may be documented in an alternate sectionGoals may be documented in an alternate sectionGoals may be documented in an alternate sectionGoals may be documented in an alternate sectionGoals may be documented in an alternate sectionGoals may be documented in an alternate sectionGoals may be documented in an alternate sectionGoals may be documented in an alternate sectionGoals may be documented in an alternate sectionGoals may be documented in an alternate sectionGoals may be documented in an alternate sectionGoals may be documented in an alternate section Care Teams (unrecognized sec tion and content) Team Status: Active Member Role Status Dates Dr. Andrew Graff MD Family Provider Active Dr. Jeramy Kitchen MD Primary Care Provider Active Team Status: Inactive Member Role Status Dates Dr. Jeramy Kitchen MD Primary Care Provider, Refer ring Provider Active Dr. Yemi Soto MD Attending Provider Active Team Status: Inactive Member Role Status Dates Dr. Jeramy Kitchen MD Primary Care Provider Active Dr. Yemi Soto MD Attending Provider, Referring Provi archie Active Team Status: Inactive Member Role Status Dates Dr. Jeramy Kitchen MD Primary Care P rosebastian, Attending Provider, Referring Provider Active Team Status: Inactive Member Role Status Dates Dr. Jeramy Kitchen MD Primary Care Provider, Refer ring Provider Active González Tolbert PA, PA Attending Provider Active Team Status: Inactive Member Role Status Dates Dr. Jeramy Kitchen MD Primary Care Provider, Refer ring Provider Active Patti Riley SERVICE OBSERVER CHIEF, SERVICE OBSERVER CHIEF-C Attending Provider Active Team Status: Inactive Member Role Status Dates Dr. Jeramy Kitchen MD Primary Care Provider Active Patti Riley SERVICE OBSERVER CHIEF, SERVICE OBSERVER CHIEF-C Attending Provider, Referring Provider Active Team Status: Active Member Role Status Dates Dr. Jeramy Kitchen MD Primary Care P rovider, Attending Provider, Referring Provider Active Team Status: Inactive Member Role Status Dates Dr. Jeramy Kitchen MD Primary Care Provider Active [facility] D[facility] Attending Provider, Referring Pr ovider Active Team Status: Active Member Role Status Dates Dr. Jeramy Kitchen MD Primary Care Provider Active Team Status: Inactive Member Role Status Dates Dr. Jeramy Kitchen MD Primary Care Provider Active Start: August 23, 2024 End: September 01, 2024 Dr. Jeramy Kitchen MD Attending Provider Active Start: August 23, 2024 End: September 01, 2024 Dr. Jeramy Kitchen MD Referring Provider Active Start: August 23, 2024 End: September 01, 2024 Team Status: Inactive Member Role Status Dates Dr. Jeramy Kitchen MD Primary Care Provider Active Start: October 05, 2024 End: November 01, 2024 Dr. Jeramy Kitchen MD Attending Provider Active Start: October 05, 2024 End: November 01, 2024 Dr. Jeramy Kitchen MD Referring Provider Active Start: October 05, 2024 End: November 01, 2024 Team Status: Inactive Member Role Status Dates Dr. Jeramy Kitchen MD Primary Care Provider Active Start: November 23, 2024 End: November 23, 2024 Patti Riley SERVICE OBSERVER CHIEF, SERVICE OBSERVER CHIEF-C Attending Provider Active Start: November 23, 2024 End: November 23, 2024 Patti Riley SERVICE OBSERVER CHIEF, SERVICE OBSERVER CHIEF-C Referring Provider Active Start: November 23, 2024 End: November 23, 2024 Team Status: Active Member Role Status Dates Dr. Jeramy Kitchen MD Primary Care Provider Active Start: November 23, 2024 Dr. Jeramy Kitchen MD Attending Provider Active Start: November 23, 2024 Dr. Jeramy Kitchen MD Referring Provider Active Start: November 23, 2024 Team Status: Inactive Member Role Status Dates Dr. Jeramy Kitchen MD Primary Care Provider Active Start: November 23, 2024 End: December 02, 2024 Dr. Jeramy Kitchen MD Attending Provider Active Start: November 23, 2024 End: December 02, 2024 Dr. Jeramy Kitchen MD Referring Provider Active Start: November 23, 2024 End: December 02, 2024 Team Status: Inactive Member Role Status Dates Dr. Jeramy Kitchen MD Primary Care Provider Active Start: December 05, 2024 End: December 05, 2024 Dr. Jeramy Kitchen MD Referring Provider Active Start: December 05, 2024 End: December 05, 2024 Patti Riley SERVICE OBSERVER CHIEF, SERVICE OBSERVER CHIEF-C Attending Provider Active Start: December 05, 2024 End: December 05, 2024 Team Status: Inactive Member Role Status Dates Dr. Jeramy Kitchen MD Primary Care Provider Active Start: December 05, 2024 End: December 05, 2024 Patti Riley SERVICE OBSERVER CHIEF, SERVICE OBSERVER CHIEF-C Attending Provider Active Start: December 05, 2024 End: December 05, 2024 Team Status: Active Member Role Status Dates Dr. Jeramy Kitchen MD Primary Care Provider Active Start: December 05, 2024 Patti Riley SERVICE OBSERVER CHIEF, SERVICE OBSERVER CHIEF-C Attending Provider Active Start: December 05, 2024 Team Status: Active Member Role Status Dates Dr. Jeramy Kitchen MD Primary Care Provider Active Start: December 14, 2024 Dr. Jeramy Kitchen MD Attending Provider Active Start: December 14, 2024 Dr. Jeramy Kitchen MD Referring Provider Active Start: December 14, 2024 Team Status: Inactive Member Role Status Dates Dr. Jeramy Kitchen MD Primary Care Provider Active Start: December 22, 2024 End: December 22, 2024 Dr. Jeramy Kitchen MD Attending Provider Active Start: December 22, 2024 End: December 22, 2024 Dr. Jeramy Kitchen MD Referring Provider Active Start: December 22, 2024 End: December 22, 2024 Team Status: Active Member Role Status Dates Dr. Jeramy Kitchen MD Primary Care Provider Active Start: December 22, 2024 Dr. Jeramy Kitchen MD Attending Provider Active Start: December 22, 2024 Dr. Jeramy Kitchen MD Referring Provider Active Start: December 22, 2024 Team Status: Active Member Role/Relationship Status Dates Dr. Jeramy Kitchen MD Primary Care Provider Active Team Status: Inactive Member Role/Relationship Status Dates Dr. Jeramy Kitchen MD Primary Care Provider Active Start: October 05, 2024 End: November 01, 2024 Dr. Jeramy Kitchen MD Attending Provider Active Start: October 05, 2024 End: November 01, 2024 Dr. Jeramy Kitchen MD Referring Provider Active Start: October 05, 2024 End: November 01, 2024 Team Status: Inactive Member Role/Relationship Status Dates Dr. Jeramy Kitchen MD Primary Care Provider Active Start: November 23, 2024 End: November 23, 2024 Patti Riley SERVICE OBSERVER CHIEF, SERVICE OBSERVER CHIEF-C Attending Provider Active Start: November 23, 2024 End: November 23, 2024 Patti Riley SERVICE OBSERVER CHIEF, SERVICE OBSERVER CHIEF-C Referring Provider Active Start: November 23, 2024 End: November 23, 2024 Team Status: Inactive Member Role/Relationship Status Dates Dr. Jeramy Kitchen MD Primary Care Provider Active Start: November 23, 2024 End: December 02, 2024 Dr. Jeramy Kitchen MD Attending Provider Active Start: November 23, 2024 End: December 02, 2024 Dr. Jeramy Kitchen MD Referring Provider Active Start: November 23, 2024 End: December 02, 2024 Team Status: Inactive Member Role/Relationship Status Dates Dr. Jeramy Kitchen MD Primary Care Provider Active Start: December 05, 2024 End: December 05, 2024 Dr. Jeramy Kitchen MD Referring Provider Active Start: December 05, 2024 End: December 05, 2024 Patti Riley SERVICE OBSERVER CHIEF, SERVICE OBSERVER CHIEF-C Attending Provider Active Start: December 05, 2024 End: December 05, 2024 Team Status: Inactive Member Role/Relationship Status Dates Dr. Jeramy Kitchen MD Primary Care Provider Active Start: December 05, 2024 End: December 05, 2024 Patti Riley SERVICE OBSERVER CHIEF, SERVICE OBSERVER CHIEF-C Attending Provider Active Start: December 05, 2024 End: December 05, 2024 Team Status: Inactive Member Role/Relationship Status Dates Dr. Jeramy Kitchen MD Primary Care Provider Active Start: December 14, 2024 End: January 01, 2025 Dr. Jeramy Kitchen MD Attending Provider Active Start: December 14, 2024 End: January 01, 2025 Dr. Jeramy Kitchen MD Referring Provider Active Start: December 14, 2024 End: January 01, 2025 Team Status: Inactive Member Role/Relationship Status Dates Dr. Jeramy Kitchen MD Primary Care Provider Active Start: December 22, 2024 End: December 22, 2024 Dr. Jeramy Kitchen MD Attending Provider Active Start: December 22, 2024 End: December 22, 2024 Dr. Jeramy Kitchen MD Referring Provider Active Start: December 22, 2024 End: December 22, 2024 Team Status: Inactive Member Role/Relationship Status Dates Dr. Jeramy Kitchen MD Primary Care Provider Active Start: December 22, 2024 End: December 22, 2024 Dr. Jeramy Kitchen MD Attending Provider Active Start: December 22, 2024 End: December 22, 2024 Dr. Jeramy Kitchen MD Referring Provider Active Start: December 22, 2024 End: December 22, 2024 Team Status: Inactive Member Role/Relationship Status Dates Dr. Jeramy Kitchen MD Primary Care Provider Active Start: November 23, 2024 End: November 23, 2024 Patti Riley SERVICE OBSERVER CHIEF, SERVICE OBSERVER CHIEF-C Attending Provider Active Start: November 23, 2024 End: November 23, 2024 Patti Riley SERVICE OBSERVER CHIEF, SERVICE OBSERVER CHIEF-C Referring Provider Active Start: November 23, 2024 End: November 23, 2024 Team Status: Inactive Member Role/Relationship Status Dates Dr. Jeramy Kitchen MD Primary Care Provider Active Start: November 23, 2024 End: December 02, 2024 Dr. Jeramy Kitchen MD Attending Provider Active Start: November 23, 2024 End: December 02, 2024 Dr. Jeramy Kitchen MD Referring Provider Active Start: November 23, 2024 End: December 02, 2024 Team Status: Inactive Member Role/Relationship Status Dates Dr. Jeramy Kitchen MD Primary Care Provider Active Start: December 05, 2024 End: December 05, 2024 Dr. Jeramy Kitchen MD Referring Provider Active Start: December 05, 2024 End: December 05, 2024 Patti Riley SERVICE OBSERVER CHIEF, SERVICE OBSERVER CHIEF-C Attending Provider Active Start: December 05, 2024 End: December 05, 2024 Team Status: Inactive Member Role/Relationship Status Dates Dr. Jeramy Kitchen MD Primary Care Provider Active Start: December 05, 2024 End: December 05, 2024 Patti Riley SERVICE OBSERVER CHIEF, SERVICE OBSERVER CHIEF-C Attending Provider Active Start: December 05, 2024 End: December 05, 2024 Team Status: Inactive Member Role/Relationship Status Dates Dr. Jeramy Kitchen MD Primary Care Provider Active Start: December 14, 2024 End: January 01, 2025 Dr. Jeramy Kitchen MD Attending Provider Active Start: December 14, 2024 End: January 01, 2025 Dr. Jeramy Kitchen MD Referring Provider Active Start: December 14, 2024 End: January 01, 2025 Team Status: Inactive Member Role/Relationship Status Dates Dr. Jeramy Kitchen MD Primary Care Provider Active Start: December 22, 2024 End: December 22, 2024 Dr. Jeramy Kitchen MD Attending Provider Active Start: December 22, 2024 End: December 22, 2024 Dr. Jeramy Kitchen MD Referring Provider Active Start: December 22, 2024 End: December 22, 2024 Team Status: Inactive Member Role/Relationship Status Dates Dr. Jeramy Kitchen MD Primary Care Provider Active Start: March 07, 2025 End: March 07, 2025 Dr. Jeramy Kitchen MD Referring Provider Active Start: March 07, 2025 End: March 07, 2025 Patti Riley SERVICE OBSERVER CHIEF, SERVICE OBSERVER CHIEF-C Attending Provider Active Start: March 07, 2025 End: March 07, 2025 Team Status: Active Member Role/Relationship Status Dates Dr. Jeramy Kitchen MD Primary care physician Activ e Team Status: Inactive Member Role/Relationship Status Dates Dr. Jeramy Kitchen MD Primary care physician Activ e Start: December 05, 2024 End: December 05, 2024 Dr. Jeramy Kitchen MD Referring Provider Active Start: December 05, 2024 End: December 05, 2024 Patti Riley SERVICE OBSERVER CHIEF, SERVICE OBSERVER CHIEF-C Attending physician Active Start: December 05, 2024 End: December 05, 2024 Team Status: Inactive Member Role/Relationship Status Dates Dr. Jeramy Kitchen MD Primary care physician Activ e Start: December 05, 2024 End: December 05, 2024 Patti Riley NP, SERVICE OBSERVER CHIEF-C Attending physician Active Start: December 05, 2024 End: December 05, 2024 Team Status: Inactive Member Role/Relationship Status Dates Dr. Jeramy Kitchen MD Primary care physician Activ e Start: December 14, 2024 End: January 01, 2025 Dr. Jeramy Kitchen MD Attending physician Active Start: December 14, 2024 End: January 01, 2025 Dr. Jeramy Kitchen MD Referring Provider Active Start: December 14, 2024 End: January 01, 2025 Team Status: Inactive Member Role/Relationship Status Dates Dr. Jeramy Kitchen MD Primary care physician Activ e Start: December 22, 2024 End: December 22, 2024 Dr. Jeramy Kitchen MD Attending physician Active Start: December 22, 2024 End: December 22, 2024 Dr. Jeramy Kitchen MD Referring Provider Active Start: December 22, 2024 End: December 22, 2024 Team Status: Inactive Member Role/Relationship Status Dates Dr. Jeramy Kitchen MD Primary care physician Activ e Start: December 22, 2024 End: December 22, 2024 Dr. Jeramy Kitchen MD Attending physician Active Start: December 22, 2024 End: December 22, 2024 Dr. Jeramy Kitchen MD Referring Provider Active Start: December 22, 2024 End: December 22, 2024 Team Status: Inactive Member Role/Relationship Status Dates Dr. Jeramy Kitchen MD Primary care physician Activ e Start: March 07, 2025 End: March 07, 2025 Dr. Jeramy Kitchen MD Referring Provider Active Start: March 07, 2025 End: March 07, 2025 Patti Riley SERVICE OBSERVER CHIEF, SERVICE OBSERVER CHIEF-C Attending physician Active Start: March 07, 2025 End: March 07, 2025 Team Status: Inactive Member Role/Relationship Status Dates Dr. Jeramy Kitchen MD Primary care physician Activ e Start: March 07, 2025 End: March 07, 2025 Patti Riley SERVICE OBSERVER CHIEF, SERVICE OBSERVER CHIEF-C Attending physician Active Start: March 07, 2025 End: March 07, 2025 Team Status: Active Member Role/Relationship Status Dates Dr. Jeramy Kitchen MD Primary care physician Activ e Start: March 21, 2025 Patti Riley SERVICE OBSERVER CHIEF, SERVICE OBSERVER CHIEF-C Attending physician Active Start: March 21, 2025 Patti Riley SERVICE OBSERVER CHIEF, SERVICE OBSERVER CHIEF-C Referring Provider Active Start: March 21, 2025 Team Status: Inactive Member Role/Relationship Status Dates Dr. Jeramy Kitchen MD Primary care physician Activ e Start: March 23, 2025 End: March 23, 2025 Dr. Jeramy Kitchen MD Attending physician Active Start: March 23, 2025 End: March 23, 2025 Dr. Jeramy Kitchen MD Referring Provider Active Start: March 23, 2025 End: March 23, 2025 Team Status: Active Member Role/Relationship Status Dates Dr. Jeramy Kitchen MD Primary care physician Activ e Start: March 23, 2025 Dr. Jeramy Kitchen MD Attending physician Active Start: March 23, 2025 Dr. Jeramy Kitchen MD Referring Provider Active Start: March 23, 2025 Team Status: Inactive Member Role/Relationship Status Dates Dr. Jeramy Kitchen MD Primary care physician Activ e Start: March 29, 2025 End: March 29, 2025 Dr. Jeramy Kitchen MD Referring Provider Active Start: March 29, 2025 End: March 29, 2025 Patti Riley SERVICE OBSERVER CHIEF, SERVICE OBSERVER CHIEF-C Attending physician Active Start: March 29, 2025 End: March 29, 2025 Team Status: Active Member Role/Relationship Status Dates Dr. Jeramy Kitchen MD Primary care physician Activ e Start: March 29, 2025 Patti Riley SERVICE OBSERVER CHIEF, SERVICE OBSERVER CHIEF-C Attending physician Active Start: March 29, 2025 Patti Riley SERVICE OBSERVER CHIEF, SERVICE OBSERVER CHIEF-C Referring Provider Active Start: March 29, 2025 Team Status: Inactive Member Role/Relationship Status Dates Dr. Jeramy Kitchen MD Primary care physician Activ e Start: December 14, 2024 End: January 01, 2025 Dr. Jeramy Kitchen MD Attending physician Active Start: December 14, 2024 End: January 01, 2025 Dr. Jeramy Kitchen MD Referring Provider Active Start: December 14, 2024 End: January 01, 2025 Team Status: Inactive Member Role/Relationship Status Dates Dr. Jeramy Kitchen MD Primary care physician Activ e Start: December 22, 2024 End: December 22, 2024 Dr. Jeramy Kitchen MD Attending physician Active Start: December 22, 2024 End: December 22, 2024 Dr. Jeramy Kitchen MD Referring Provider Active Start: December 22, 2024 End: December 22, 2024 Team Status: Inactive Member Role/Relationship Status Dates Dr. Jeramy Kitchen MD Primary care physician Activ e Start: December 22, 2024 End: December 22, 2024 Dr. Jeramy Kitchen MD Attending physician Active Start: December 22, 2024 End: December 22, 2024 Dr. Jeramy Kitchen MD Referring Provider Active Start: December 22, 2024 End: December 22, 2024 Team Status: Inactive Member Role/Relationship Status Dates Dr. Jeramy Kitchen MD Primary care physician Activ e Start: March 07, 2025 End: March 07, 2025 Dr. Jeramy Kitchen MD Referring Provider Active Start: March 07, 2025 End: March 07, 2025 Patti Riley SERVICE OBSERVER CHIEF, SERVICE OBSERVER CHIEF-C Attending physician Active Start: March 07, 2025 End: March 07, 2025 Team Status: Inactive Member Role/Relationship Status Dates Dr. Jeramy Kitchen MD Primary care physician Activ e Start: March 07, 2025 End: March 07, 2025 Patti Riley SERVICE OBSERVER CHIEF, SERVICE OBSERVER CHIEF-C Attending physician Active Start: March 07, 2025 End: March 07, 2025 Team Status: Active Member Role/Relationship Status Dates Dr. Jeramy Kitchen MD Primary care physician Activ e Start: March 21, 2025 Patti Riley SERVICE OBSERVER CHIEF, SERVICE OBSERVER CHIEF-C Attending physician Active Start: March 21, 2025 Patti Riley SERVICE OBSERVER CHIEF, SERVICE OBSERVER CHIEF-C Referring Provider Active Start: March 21, 2025 Team Status: Inactive Member Role/Relationship Status Dates Dr. Jeramy Kitchen MD Primary care physician Activ e Start: March 23, 2025 End: March 23, 2025 Dr. Jeramy Kitchen MD Attending physician Active Start: March 23, 2025 End: March 23, 2025 Dr. Jeramy Kitchen MD Referring Provider Active Start: March 23, 2025 End: March 23, 2025 Team Status: Inactive Member Role/Relationship Status Dates Dr. Jeramy Kitchen MD Primary care physician Activ e Start: March 23, 2025 End: March 23, 2025 Dr. Jeramy Kitchen MD Attending physician Active Start: March 23, 2025 End: March 23, 2025 Dr. Jeramy Kitchen MD Referring Provider Active Start: March 23, 2025 End: March 23, 2025 Team Status: Inactive Member Role/Relationship Status Dates Dr. Jeramy Kitchen MD Primary care physician Activ e Start: March 29, 2025 End: March 29, 2025 Dr. Jeramy Kitchen MD Referring Provider Active Start: March 29, 2025 End: March 29, 2025 Patti Riley NP SERVICE OBSERVER CHIEF-C Attending physician Active Start: March 29, 2025 End: March 29, 2025 Team Status: Active Member Role/Relationship Status Dates Dr. Jeramy Kitchen MD Primary care physician Activ e Start: March 29, 2025 Patti Riley NP SERVICE OBSERVER CHIEF-C Attending physician Active Start: March 29, 2025 Patti Riley NP SERVICE OBSERVER CHIEF-C Referring Provider Active Start: March 29, 2025 FOR RECORDS PERTAINING TO PATIENTS WHO ARE [...] BE BASED ON THE PRIMARY CLINICAL RECORDS. [employer] provides no warranty or guarantee of the accuracy or completeness of information in this document.
[2025-05-15] MEDS: Lactated Ringers 1,000 ML 15 ML IV (06:35)
--- NOTE | 2025-05-15 06:55 | PCM.PRE.AN2 ---
ASA Classification* ASA Classification ASA Classification: 2 ([facility] Carrier - Dad's sister has (+) malignant hyperthermia ) Assessment & Plan Anesthesia* Anesthesia Assessment Anesthesia Assessment: Discussed sedation and/or anesthesia options, risks, benefits, and alternatives with patient/parents/legal guardian/POA. Questions invited. The patient/parents/legal guardian/POA seems to understand and agrees to proceed with anesthesia plan. Reviewed the physical assessment, medical history, allergy history and patient home medications list prior to surgery/procedure/anesthetic and documented any changes. Performed airway and anesthesia risk assessments. Anesthesia Type Anesthesia Type: MAC History Source History Obtained from:: Patient and Chart Anesthesia Focused Assessment* Temperature: 98.4 F Pulse Rate: 89 Blood Pressure: 119/74 Respiratory Rate: 16 Pulse Ox: 99 Oxygen Delivery Method: Room Air Airway Assessment Mouth opens: >3 cm Mallampati Score: III Teeth Condition: Intact Neck Range of motion (ROM): Full ROM Labs Anesthesia Preop lab: CBC WBC, (4.4-11.0) 5.3 K/mm3 03/23/25, 08:55 RBC, (4.2-5.4) 4.63 M/mm3 03/23/25, 08:55 Hgb, (12.0-15.0) 14.9 g/dL 03/23/25, 08:55 Hct, (37-47) 44.4 % 03/23/25, 08:55 Plt Count, (150-450) 300 K/mm3 03/23/25, 08:55 CHEMISTRY Potassium, (3.3-5.1) 3.9 mmol/L 12/22/24, 09:48 Sodium, (133-145) 139 mmol/L 12/22/24, 09:48 Magnesium, (1.6-2.6) 2.0 mg/dL 04/13/22, 14:22 BUN, (4-19) 8 mg/dL 12/22/24, 09:48 Creatinine, (0.70-1.20) 0.69 mg/dL L 12/22/24, 09:48 Glucose, (70-99) 96 mg/dL 12/22/24, 09:48 TSH, (0.300-4.200) 1.280 uIU/mL 12/22/24, 09:48 COAG Urine Test Negative Negative Today, 06:16 Pre-Assessment Diagnosis/Proposed Procedure Planned Operative Procedure(s): COLONOSCOPY-OA Anesthesia History Anesthesia History - closing coordinator: Anesthesia History - closing coordinator Hx Hospitalization No 05/14/25 08:12 Any Problems With Anesthesia No 05/14/25 08:12 Cholinesterase deficiency No 05/14/25 08:12 You/Your Family Experience Yes 05/14/25 08:12 fever (hyperthermia) with Relationship PATERNAL AUNT 05/14/25 08:12 Recent Exposure to Contagious No 05/15/25 06:21 Disease Does patient have nerve No 05/14/25 08:12 stimulator Patient instructed to have device shut off --Does patient have Pacemaker No 05/15/25 06:21 or ICD? When Was Last Pacemaker Check QUESTION #4 FULL TEXT: You/Your Family Experience fever (hyperthermia) with Anesthesia Last Oral Intake Last Oral intake: Last Oral Intake NPO since 21:00 05/15/25 06:21 Meds taken in AM with sips of Yes 05/15/25 06:21 water? Meds patient instructed to see med list 05/15/25 06:21 take am of surgery PONV PONV - closing coordinator: PONV - closing coordinator Female Yes 05/14/25 08:12 HX of Motion Sickness No 05/14/25 08:12 HX of N/V After Surgery No 05/14/25 08:12 Non-Smoker Yes 05/14/25 08:12 Duration of Surgery greater No 05/14/25 08:12 than 60 minutes Number of Risk Factors 2 05/14/25 08:12 PONV Score Moderate Risk 05/14/25 08:12 Height & Weight Height & Weight: Anesthesia: Height & Weight Height 5 ft 2 in 05/15/25 06:21 Weight: 78.3 kg 05/15/25 06:21 Body Mass Index (BMI) 31.6 05/15/25 06:21 Respiratory Assessment Respiratory Assessment - closing coordinator: Respiratory Tract Infection Hx - closing coordinator Hx Respiratory Tract Infection No 05/14/25 08:12 STOP Sleep Apnea STOP Sleep Apnea - closing coordinator: STOP Sleep Apnea - closing coordinator Hx Hypertension Yes: CONTROLLED ON MED 05/14/25 08:12 Hx Sleep Apnea No 05/14/25 08:12 CPAP BIPAP Do you snore loudly (louder No 05/14/25 08:12 than talking or can be heard Do you often feel tired/ No 05/14/25 08:12 fatigued/ sleepy during daytime? Has anyone observed you stop No 05/14/25 08:12 breathing during sleep? STOP Results Negative 05/14/25 08:12 QUESTION #5 FULL TEXT : Do you snore loudly (louder than talking or can be heard through closed doors)? 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 Specify any problems Hx of Preganancy in last 3 No 05/14/25 08:12 Months Nurse Filling Out Transfusion VCHRISTIN 05/14/25 08:12 & Questions: Date: 05/14/25 05/14/25 08:12 Time: 08:14 05/14/25 08:12 Patient unable to answer at this time (ie. confused, unrespo /Reproduction History /Reproductive History - closing coordinator: /Reproductive Hx- closing coordinator Hx Now No 05/14/25 08:12 Gestational Age (in weeks): EDC: Hx Hx Para Hx Section SAB No 05/14/25 08:12 Does the father of the baby or his family experience fever w Father of the baby Malignant Hypertension history comment Active Medications Active Medications: Current Medications Generic Name Dose Route Start Last Admin Trade Name Freq PRN Reason Stop Dose Admin Lactated Ringer's 1,000 mls @ 15 mls/hr 05/15/25 06:15 05/15/25 06:35 IV 15 mls/hr .Q48H KATIE Administration PFSH Medical History (Updated 05/14/25 @ 08:12 by Brenda Bhatia) Depression Thyroid disease History of IBS Former smoker Colon cancer screening Anxiety and depression Back pain Dermatitis Obesity (BMI 30-39.9) Hypertension Vitamin D deficiency Iron deficiency B12 deficiency Paresthesia 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 Thyroid enlargement Psoriasis Localized swelling, mass and lump, neck Hypokalemia Abnormal thyroid function test Anxiety Acid reflux Home Medications ?Medication ?Instructions ?Recorded ?Last Taken ?Type cholecalciferol (vitamin D3) 50 50 mcg PO DAILY 06/09/23 Unknown History mcg (2,000 unit) capsule ferrous sulfate 134 mg (27 mg 134 mg PO DAILY 06/09/23 05/07/25 History iron) tablet mecobalamin (vitamin B12) 5,000 5,000 mcg PO DAILY 06/09/23 Unknown History mcg disintegrating tablet alprazolam 0.25 mg tablet 0.25 mg PO QDAY PRN anxiety #30 06/22/24 Unknown Rx tabs omega 5-zlm-pbl-fish oil 300 1 cap PO QDAY 12/05/24 05/07/25 History mg-1,000 mg capsule (Fish Oil) escitalopram oxalate 10 mg tablet 10 mg PO QDAY #30 tabs 12/22/24 Unknown Rx (Lexapro) Held on 05/14/25. Instructions: HASN'T STARTED YET levothyroxine 100 mcg tablet 100 mcg PO DAILY #90 tabs 12/22/24 05/15/25 04:00 Rx metformin 500 mg tablet,extended 500 mg PO BID #60 tabs 12/22/24 Unknown Rx release 24 hr (Glucophage XR) losartan 50 mg tablet 50 mg PO QHS 05/14/25 Unknown History Allergy/AdvReac Type Severity Reaction Status Date / Time Sulfa (Sulfonamide Allergy Mild Other Verified 05/15/25 06:20 Antibiotics) Family History Father Heart disease Surgical History (Updated 05/14/25 @ 08:12 by Brenda Bhatia) Hx laparoscopic cholecystectomy History of tonsillectomy Social History Smoking Status: Never smoker alcohol intake: current details: social substance use type: does not use caffeine: Yes what type of physical activity do you participate in: none seatbelt use: always do you feel safe at home: Yes additional social history: - nuris - anai helder patient works at [employer] Review of Systems (Anesthesia) ROS Narrative System reviewed and no additional complaints, except as documented. Physical Exam Const alert, oriented x3 and average body habitus Resp normal respiratory effort, normal air movement and clear to auscultation bilaterally Cardio regular rate, regular rhythm and no murmurs
--- NOTE | 2025-05-15 07:02 | PCM.HP.STD ---
HPI - General General Date of Admission: 05/15/25 Date of Service: 06/06/25 Chief Complaint: Screening colonoscopy HPI Narrative ELKIN WILKERSON, is a 44 F who presents today for screening colonoscopy. She never had a colonoscopy in the past. She is not having abdominal pain, cramping, chest pain or shortness of breath. Overall she is in fairly good health. 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 Thyroid enlargement Psoriasis Localized swelling, mass and lump, neck Hypokalemia Abnormal thyroid function test Anxiety Acid reflux Home Medications ?Medication ?Instructions ?Recorded ?Last Taken ?Type cholecalciferol (vitamin D3) 50 50 mcg PO DAILY 06/09/23 Unknown History mcg (2,000 unit) capsule ferrous sulfate 134 mg (27 mg 134 mg PO DAILY 06/09/23 05/07/25 History iron) tablet mecobalamin (vitamin B12) 5,000 5,000 mcg PO DAILY 06/09/23 Unknown History mcg disintegrating tablet alprazolam 0.25 mg tablet 0.25 mg PO QDAY PRN anxiety #30 06/22/24 Unknown Rx tabs omega 0-jbc-olt-fish oil 300 1 cap PO QDAY 12/05/24 05/07/25 History mg-1,000 mg capsule (Fish Oil) escitalopram oxalate 10 mg tablet 10 mg PO QDAY #30 tabs 12/22/24 Unknown Rx (Lexapro) Held on 05/14/25. Instructions: HASN'T STARTED YET levothyroxine 100 mcg tablet 100 mcg PO DAILY #90 tabs 12/22/24 05/15/25 04:00 Rx metformin 500 mg tablet,extended 500 mg PO BID #60 tabs 12/22/24 Unknown Rx release 24 hr (Glucophage XR) losartan 50 mg tablet 50 mg PO QHS 05/14/25 Unknown History Allergy/AdvReac Type Severity Reaction Status Date / Time Sulfa (Sulfonamide Allergy Mild Other Verified 05/15/25 06:20 Antibiotics) Family History Father Heart disease Surgical History Hx laparoscopic cholecystectomy History of tonsillectomy Social History Smoking Status: Never smoker alcohol intake: current details: social substance use type: does not use caffeine: Yes what type of physical activity do you participate in: none seatbelt use: always do you feel safe at home: Yes additional social history: - nuris pendleton patient works at [employer] Constitutional Constitutional: Denies fatigue, fever(s), poor appetite, weight gain or weight loss Gastrointestinal Gastrointestinal: Denies belching, bloating, change in bowel habits, change in stool character, chewing difficulty, coffee ground emesis, constipation, cramping, diarrhea, dyspepsia, dysphagia, early satiety, excessive flatus, fecal incontinence, heartburn, hematemesis, hematochezia, hemorrhoids, loose stools, melena, nausea, odynophagia, rectal bleeding, tenesmus, vomiting or weight changes Vital Signs Vital Signs Vital Signs: 05/15/25 06:21 05/15/25 06:21 05/15/25 06:57 Temperature 98.4 F 98.4 F Temperature Source Temporal Pulse Rate 89 89 Respiratory Rate 16 16 Respiratory Pattern Normal Blood Pressure 119/74 119/74 Blood Pressure Mean 89 Blood Pressure Source Monitor Blood Pressure Position Semi-Fowlers Blood Pressure Location Right Arm Pulse Ox 99 99 Oxygen Delivery Method Room Air Room Air Weight Weight: 172 lb 9.951 oz Body Mass Index (BMI) 31.6 Physical Exam Const alert, oriented x3, no apparent distress and healthy appearing General Appearance: cooperative GI normal to inspection, nondistended, normoactive bowel sounds, soft to palpation, non-tender and non-distended Percussion: normal to percussion Rectal Exam: deferred Assessment & Plan Assessment/Plan (1) Colon cancer screening: PLAN: She was explained alternatives, risk and benefits include not withstanding bleeding, infection, sepsis, perforation, need for emergent urgent . She will have an ASA of 3.
--- NOTE | 2025-05-15 07:35 | OP.COLON_ITS ---
Patient Name: Cayla Cruz Procedure Date: 05/15/2025 7:08 AM Date of : 1980 Age: 44 Procedure: Colonoscopy Indications: Screening for colorectal malignant neoplasm, This is the patient's first colonoscopy Providers: Rodriguez Lujan DO Referring MD: Jeramy Kitchen MD Medicines: Monitored Anesthesia Care Patient Profile: This is a 44 year old female. Refer to note in patient chart for documentation of history and physical. Last Colonoscopy: none. The patient's first colonoscopy is today. Complications: No immediate complications. Procedure: Pre-Anesthesia Assessment: - Prior to the procedure, a History and Physical was performed, and patient medications and allergies were reviewed. The patient is competent. The risks and benefits of the procedure and the sedation options and risks were discussed with the patient. All questions were answered and informed consent was obtained. Patient identification and proposed procedure were verified by the physician in the pre-procedure area. Mental Status Examination: alert and oriented. Airway Examination: normal oropharyngeal airway and neck mobility. Respiratory Examination: clear to auscultation. CV Examination: normal. Prophylactic Antibiotics: The patient does not require prophylactic antibiotics. Prior Anticoagulants: The patient has taken no anticoagulant or antiplatelet agents except for NSAID medication. ASA Grade Assessment: II - A patient with mild systemic disease. After reviewing the risks and benefits, the patient was deemed in satisfactory condition to undergo the procedure. The anesthesia plan was to use monitored anesthesia care (MAC). Immediately prior to administration of medications, the patient was re-assessed for adequacy to receive sedatives. The heart rate, respiratory rate, oxygen saturations, blood pressure, adequacy of pulmonary ventilation, and response to care were monitored throughout the procedure. The physical status of the patient was re-assessed after the procedure. After I obtained informed consent, the scope was passed under direct vision. Throughout the procedure, the patient's blood pressure, pulse, and oxygen saturations were monitored continuously. The colonoscope was introduced through the anus and advanced to the cecum, identified by appendiceal orifice and ileocecal valve. The colonoscopy was performed without difficulty. The patient tolerated the procedure well. The quality of the bowel preparation was adequate. The ileocecal valve, appendiceal orifice, and rectum were photographed. Scope In: 7:16:45 AM Scope Withdrawal Time 0 hours 8 minutes 58 seconds Scope Out: 7:29:22 AM Total Procedure Duration Time 0 hours 12 minutes 37 seconds Findings: The perianal and digital rectal examinations were normal. The colon (entire examined portion) appeared normal. The exam was otherwise without abnormality on direct and retroflexion views. Impression: - The entire examined colon is normal. - The examination was otherwise normal on direct and retroflexion views. - No specimens collected. Recommendation: - Discharge patient to home. - Resume previous diet. - Continue present medications. - Repeat colonoscopy in 10 years for screening purposes. Procedure Code(s): --- Professional --- G0121, Colorectal cancer screening; colonoscopy on individual not meeting criteria for high risk CPT copyright 2021 [employer]. All rights reserved. The codes documented in this report are preliminary and upon medical coder review may be revised to meet current compliance requirements. Rodriguez Lujan DO 05/15/2025 7:35:13 AM This report has been signed electronically. Number of Addenda: 0 Note Initiated On: 05/15/2025 7:08 AM
--- NOTE | 2025-05-15 07:35 | OP.PROVAT_ITS ---
05/15/2025 Jeramy Kitchen MD [address] [place] [address] [place] [address] Re : Colonoscopy procedure for Cayla Cruz Dear Dr. Kitchen This procedure was performed on Thursday, May 15, 2025. My impressions and recommendations are as follows: Impressions : - The entire examined colon is normal. - The examination was otherwise normal on direct and retroflexion views. - No specimens collected. Recommendations : - Discharge patient to home. - Resume previous diet. - Continue present medications. - Repeat colonoscopy in 10 years for screening purposes. My findings are described in the full procedure note, which is enclosed. If I can be of further assistance, please feel free to contact me at . Sincerely, Rodriguez Friend, 05/15/2025 7:35:13 AM This report has been signed electronically.
--- NOTE | 2025-05-15 07:42 | PCM.POST.ANE ---
Anesthesia: Postop Eval I Current Vital Signs Temperature: 97.2 F Pulse Rate: 74 Blood Pressure: 99/56 Respiratory Rate: 16 Pulse Ox: 100 Oxygen Delivery Method: Room Air Assessment Airway patent: Yes Spontaneous unlabored respirations: Yes Mental status: Awake and Calm nausea: No Vomiting: No Anesthesia Complication: No Fluid Hydration Crystalloid volume administer (ml): 500 Total IV fluid infused: 500 Progress Note Anesthesia document: Postop Eval 1 completed: Yes
--- NOTE | 2025-05-15 08:16 | PCM.POSTANE2 ---
Anesthesia Postop Eval I Sum Postop Eval Completion status Anesthesia document: Postop Eval 1 completed: Yes Anesthesia Postop Eval I Summary Anesthesia Postop Eval I Summary: Anesthesia Postop Eval I: Assessment Summary Airway patent Yes 05/15/25 07:43 [email or web address] Spontaneous unlabored Yes 05/15/25 07:43 [email or web address] respirations Mental status Awake,Calm 05/15/25 07:43 [email or web address] nausea No 05/15/25 07:43 [email or web address] Vomiting No 05/15/25 07:43 [email or web address] Anesthesia Postop Eval I: Fluid Summary Crystalloid volume administer 500 05/15/25 07:43 [email or web address] (ml) Colloids volume administered ( ml) Blood Product volume administered (ml) Total IV fluid infused 500 05/15/25 07:43 [email or web address] Anesthesia Postop Eval I: Summary Notes Anesthesia Complication No 05/15/25 07:43 [email or web address] Anesthesia Complication Comment: Post-operative progress note Anesthesia: Postop Eval II Evaluation Mental status: Awake Pain Level: 0 nausea: No Vomiting: No Complications Anesthesia Complication: No
== END 2025-05-15 08:05 | disposition home or self-care (01) ==
LOC: EN 05:55 → AC 05:56
PROVIDERS: PCP Internal Medicine; Referring Provider Internal Medicine; Visit Provider Internal Medicine Gastroenterology
PROC: 0DJD8ZZ Inspection of Lower Intestinal Tract, Via Natural or Artificial Opening Endoscopic (ICD-10-PCS; CPT 45378; principal; 2025-05-15 06:55)
DX: Z12.11 Encounter for screening for malignant neoplasm of colon (principal); I10 Essential (primary) hypertension; K21.9 Gastro-esophageal reflux disease without esophagitis; Z79.899 Other long term (current) drug therapy; Z79.890 Hormone replacement therapy; E06.3 Autoimmune thyroiditis
CPT/HCPCS: 45378; J2405

== ENCOUNTER 2025-05-15 07:30 | Outpatient (RCR) | payer OTHER, SELFPAY ==
[2025-05-15 06:24] LABS: Internal QC Validated? YES +Cl - CLEAR BKGD; Pregnancy, Urine Negative Negative; Record Kit Lot#,Urine Preg 0000980607
== END 2025-06-03 23:59 ==
LOC: NS 07:30
PROVIDERS: Student in an Organized Health Care Education/Training Program; PCP Internal Medicine; Referring Provider Internal Medicine; Visit Provider Internal Medicine
DX: Z71.3 Dietary counseling and surveillance (principal); E66.9 Obesity, unspecified
CPT/HCPCS: 81025